=== PATIENT | female | born 1945 | race Caucasian/White ===

== ENCOUNTER 2020-12-10 15:19 | Outpatient (CLI) | payer MEDICARE, BC, SELFPAY ==
[2020-12-10 15:45] LABS: Basophils Percent Auto 0.5 % (0.2-1.2); Eosinophils Absolute Auto 0.2 K/mm3 (0-0.3); Eosinophils Percent Auto 2.5 % (0-4.4); Hematocrit 43.3 % (37.0-47.0); Hemoglobin 14.1 g/dL (12.0-15.0); Immature Granulocyte Absolute 0.03 K/mm3 (0.00-0.031); Immature Granulocyte Percent A 0.3 % (0-0.5); Lymphocytes Absolute Auto 1.81 K/mm3 (0.9-3.2); Lymphocytes Percent Auto 20.4 % (18.3-44.2); Mean Corpuscular HGB Conc 32.6 g/dl (32-36); Mean Corpuscular Hemoglobin 29.8 pg (26-34); Mean Corpuscular Volume 91.5 fl (80-100); Monocytes Absolute Auto 0.6 K/mm3 (0.1-0.6); Monocytes Percent Auto 7.1 % (2.6-8.5); Neutrophils Absolute Auto 6.2 K/mm3 (1.3-6.7); Neutrophils Percent Auto 69.2 % (45.5-73.1); Platelet Count Result 301 k/mm3 (150-375); Red Blood Count 4.73 M/mm3 (4.2-5.4); Red Cell Distribution Width 13.2 % (11.5-14.5); White Blood Count 8.9 K/mm3 (4.5-10.0)
[2020-12-10 16:02] LABS: Alanine Aminotransferase 40 U/L (4-35); Albumin Level 4.4 g/dL (3.5-5.1); Alkaline Phosphatase 72 U/L (38-126); Anion Gap 9 mmol/L (8-16); Aspartate Amino Transferase 32 U/L (14-36); Bilirubin,Total 1.6 mg/dL (0.2-1.3); Blood Urea Nitrogen 21 mg/dL (7-17); Calcium 9.6 mg/dL (8.4-10.2); Carbon Dioxide 30 mmol/L (22-30); Chloride 103 mmol/L (98-107); Cholesterol 149 mg/dL (0-200); Estimated Glomerular Filt Rate > 60; Glucose 107 mg/dL (65-110); HDL Direct 46 mg/dL; Potassium 3.9 mmol/L (3.4-5.0); Sodium 142 mmol/L (137-145); Triglycerides 218 mg/dL (<150)
[2020-12-10 16:14] LABS: LDL Cholesterol Direct 60 mg/dL
[2020-12-10 16:34] LABS: Vitamin D 25 Hydroxy 39.7 ng/mL
== END 2020-12-10 15:20 | disposition home or self-care (01) ==
PROVIDERS: PCP Physician Assistant Medical; Visit Provider Nurse Practitioner Family
DX: E78.5 Hyperlipidemia, unspecified (principal); I10 Essential (primary) hypertension; U07.1 COVID-19; E55.9 Vitamin D deficiency, unspecified
CPT/HCPCS: 36415; 80053; 80061; 82306; 84443; 85025

== ENCOUNTER → 2021-01-01 14:26 | Outpatient (CLI) | payer MEDICARE, BC, SELFPAY ==
--- NOTE | ~2021-01-01 | MMUS_ITS ---
EXAMINATION: MM diagnostic inocencio BI w shaji, US breast RT limited HISTORY: Pain in the right axilla at the site of prior lymph node removal. TECHNIQUE: Craniocaudal, mediolateral, and mediolateral oblique 3-D tomosynthesis images of the breas ts were performed and synthetic 2-D images were generated. Magnification views of the left breast are also obtained. CAD analysis was submitted and interpreted. High resolution limited right breast ultr asound was performed. COMPARISON: 08/01/2016, 07/22/2016, 02/19/2015 BREAST PARENCHYMAL COMPOSITION: The breasts are heterogeneously dense, which may obscure small masses . FINDINGS: MAMMOGRAPHIC FINDINGS: Right breast: There is no evidence of suspicious mass, calcification, or architectural distortion to suggest malignancy. There has been no suspicious interval change. No mammographic correlate is ident ified for the patient's reported right axilla pain. Left breast: There are grouped coarse heterogeneous and lucent centered calcifications in the posteri or third of the upper outer quadrant of the breast at the 1:00 location 17 cm from the nipple. ULTRASOUND: There is no evidence of focal abnormal solid or cystic mass in the vicinity of the patient's reported right axillary pain. Normal-appearing lymph nodes are identified. IMPRESSION: 1. Indeterminate left breast calcifications. Stereotactic biopsy is recommended. 2. No suspicious correlate identified for the patient's right axillary pain. Clinical follow-up is re commended. BI-RADS category 4, suspicious findings. Reviewed, dictated and finalized at location A. HER MACHINE OPERATOR IMPRESSION: 1. Indeterminate left breast calcifications. Stereotactic biopsy is recommended . 2. No suspicious correlate identified for the patient's right axillary pain. Cl inical follow-up is recommended. BI-RADS category 4, suspicious findings.
== END ==
PROVIDERS: PCP Family Medicine; Visit Provider Nurse Practitioner Family
DX: R92.8 Other abnormal and inconclusive findings on diagnostic imaging of breast (principal)
CPT/HCPCS: 76642; 77062; 77066; G0279

== ENCOUNTER 2021-01-01 16:17 | Outpatient (CLI) | payer MEDICARE, BC, SELFPAY ==
[2021-01-01 16:51] LABS: Alanine Aminotransferase 41 U/L (4-35); Albumin Level 4.8 g/dL (3.5-5.1); Alkaline Phosphatase 89 U/L (38-126); Aspartate Amino Transferase 32 U/L (14-36); Bilirubin,Total 1.3 mg/dL (0.2-1.3)
[2021-01-01 19:59] LABS: Hepatitis B Surface Antigen Negative (Negative)
[2021-01-01 20:05] LABS: HAV RESULT Negative (Negative); Hepatitis B Core IgM Result Negative (Negative)
[2021-01-01 20:16] LABS: Hepatitis C Virus Antibody Negative (Negative)
[2021-01-04 14:43] LABS: GGT 36 U/L (3-65)
== END 2021-01-01 16:18 | disposition home or self-care (01) ==
LOC: ANHLAB 16:26
PROVIDERS: PCP Family Medicine; Visit Provider Nurse Practitioner Family
DX: R74.01 Elevation of levels of liver transaminase levels (principal)
CPT/HCPCS: 36415; 80074; 80076; 82977

== ENCOUNTER 2021-03-11 10:39 | Outpatient (CLI) | payer MEDICARE, BC, SELFPAY ==
--- NOTE | ~2021-03-11 | MM_ITS ---
MM stereotactic bx LT, MM post biopsy diagnostic LT, MM stereotactic specimen LT EXAMINATION: MM ster eotactic bx LT, MM post biopsy diagnostic LT, MM stereotactic specimen LT DATE: Carlitos Forrest M.D. INDICATION: Abnormal calcifications in the left breast. Stereotactic core biopsy is requested evalua te for malignancy.] TECHNIQUE AND FINDINGS: The risks and potential benefits of the procedure were discussed with the patient and written informe d consent was obtained. The patient was placed in the prone position clustered at the table with the left breast in the left breast compression, and the area of interest was localized and targeted util izing digital imaging with stereotaxis. After sterile preparation of the skin, 1% lidocaine was utilized for local anesthesia at the skin pun cture site and 1% lidocaine with epinephrine was utilized for deeper local anesthesia/is about the bi opsy site. A 9G DubMeNow vacuum assisted biopsy needle was advanced to the level of the calcification o f interest from a lateral approach utilizing stereotactic guidance and a total of 6 tissue core biops ies were obtained. A specimen radiograph demonstrates that the calcifications of interest are included within the tissue cores. A tissue marker clip was then placed at the biopsy site. The needle was removed and hemosta sis was achieved. The patient tolerated the procedure well and there is no evidence of significant i mmediate complication. The patient was given verbal as well as written postprocedural instructions p rior to discharge from the department. Tissue cores were submitted to surgical pathology for histolo gic analysis. A 2-view left unilateral digital mammogram was obtained post procedure and this demonstrates that the tissue marker clip is in expected position.] IMPRESSION: 1. Successful stereotactic biopsy of calcifications in the upper outer quadrant of the left breast, followed by tissue marker clip placement. Please refer to pathology report for histologic analysis. Reviewed, dictated and finalized at location A. CHEMISTRY ANALYST IMPRESSION: 1. Successful stereotactic biopsy of calcifications in the upper outer quadran t of the left breast, followed by tissue marker clip placement. Please refer t o pathology report for histologic analysis. IMPRESSION: 1. Successful stereotactic biopsy of calcifications in the upper outer quadran t of the left breast, followed by tissue marker clip placement. Please refer t o pathology report for histologic analysis.
== END 2021-03-11 10:40 | disposition home or self-care (01) ==
PROVIDERS: PCP Family Medicine; Visit Provider Nurse Practitioner Family
DX: R92.1 Mammographic calcification found on diagnostic imaging of breast (principal)
CPT/HCPCS: 19081; 77065; 88305; A4648

== ENCOUNTER → 2021-04-09 13:24 | Outpatient (CLI) | payer MEDICARE, BC, SELFPAY ==
--- NOTE | ~2021-04-09 | DEXA_ITS ---
Bone Density Report Name: DHIRAJ HAYWOOD Age: 75 Sex: Female Ethnicity: White Date of : 1945 Indication: postmenopausal; screening for osteoporosis; height loss; hysterectomy; Referring Provider: Kia León Study: Bone densitometry was performed. Exam Date: April 09, 2021 Accession number: [id number] Bone Density: Region BMD T-score Z-score Classification Femoral Neck (Left) 0.757 -0.8 1.2 Normal Total Hip (Left) 0.974 0.3 2.0 Normal Femoral Neck (Right) 0.788 -0.6 1.5 Normal Total Hip (Right) 0.999 0.5 2.2 Normal Total Hip Mean 0.987 0.4 2.1 Normal World Health Organization criteria for BMD impression classify patients as: Normal (T-score at or above -1.0), Osteopenia (T-score between -1.0 and -2.5), or Osteoporosis (T-score at or below -2.5). 10-year Fracture Risk: FRAX not reported because: All T-scores for Spine Total, Hip Total, Femoral Neck at or above -1.0 Previous Exams: Region Exam Age BMD T-score BMD Change BMD Change Date g/cm2 vs Baseline vs Previous Total Hip(Left) 04/09/2021 75 0.974 0.3 -0.031* -0.062* 09/21/2013 68 1.036 0.8 0.032* 0.032* 08/05/2011 66 1.004 0.5 Total Hip(Right) 04/09/2021 75 0.999 0.5 -0.023 -0.050* 09/21/2013 68 1.048 0.9 0.026 0.026 08/05/2011 66 1.022 0.7 *Denotes significance at 95% confidence level, LSC for Total Hip = 0.027 g/cm2 Clinical Information Provided by Patient: Has the following medical conditions: Hysterectomy, endometrial cancer age 42 Patient maximum height was 62 Menopause Age: 42 No regular weight bearing exercise Does not regularly consume dairy products Drinks caffeinated beverages Onset of menses at age 14 Number of children 0 Impression: The patient has normal bone mass. The BMD for the Total Hip(Left) decreased, changing by -0.062 since the last DXA exam. The BMD for the Total Hip(Right) decreased, changing by -0.050 since the last DXA exam. Discussion: BONE DENSITY IS ABOVE THE MINIMUM DESIRABLE LEVEL AT ALL SKELETAL SITES TESTED. This patient?s bone mineral density is above the minimum desirable level (T-score -1.0 or better) at all sites measured. The patient should follow a healthful lifestyle (good nutrition with adequate calcium and vitamin D, and appropriate weight-bearing exercise). Follow-Up: Consider repeating this study in 3 to 4 years to reassess this patient's status, or sooner if there is some new cl
== END ==
PROVIDERS: PCP Family Medicine; Visit Provider Nurse Practitioner Family
DX: Z78.0 Asymptomatic menopausal state (principal)
CPT/HCPCS: 77080

== ENCOUNTER → 2021-07-25 14:24 | Outpatient (CLI) | payer MEDICARE, BC, SELFPAY ==
--- NOTE | ~2021-07-25 | XR_ITS ---
EXAMINATION: XR chest 2V 07/25/2021 14:52 INDICATION: Cough PROCEDURE: 2 view chest COMPARISON: No prior studies for comparison. FINDINGS: The lungs are clear. The cardiomediastinal silhouette is within normal limits. There are no pleural effusions. There is no pneumothorax suspected. Status post median sternotomy for CABG. IMPRESSION: 1: NO ACUTE CARDIOPULMONARY DISEASE. Reviewed, dictated and finalized at location A.
== END ==
PROVIDERS: PCP Nurse Practitioner Family; Visit Provider Nurse Practitioner Family
DX: R05.9 Cough, unspecified (principal)
CPT/HCPCS: 71046

== ENCOUNTER → 2021-08-20 13:55 | Outpatient (CLI) | payer MEDICARE, BC, SELFPAY ==
--- NOTE | ~2021-08-20 | XR_ITS ---
EXAMINATION: XR chest 2V 08/20/2021 14:10 INDICATION: Cough PROCEDURE: 2 view chest COMPARISON: 07/25/2021 FINDINGS: The lungs are clear. The cardiomediastinal silhouette is within normal limits. There are no pleural effusions. There is no pneumothorax suspected. Status post median sternotomy for CABG. S urgical clips are present in the right axilla. IMPRESSION: 1: NO ACUTE CARDIOPULMONARY DISEASE. Reviewed, dictated and finalized at location A.
== END ==
PROVIDERS: PCP Family Medicine; Visit Provider Physician Assistant Medical
DX: R05.9 Cough, unspecified (principal)
CPT/HCPCS: 71046

== ENCOUNTER → 2021-10-04 14:00 | Outpatient (CLI) | payer MEDICARE, BC, SELFPAY ==
--- NOTE | ~2021-10-04 | MM_ITS ---
EXAMINATION: MM diagnostic inocencio BI w shaji HISTORY: Recent benign biopsy of calcifications TECHNIQUE: Additional 3-D tomosynthesis images of the breasts were performed and synthetic 2-D images were generated. CAD analysis was submitted and interpreted. COMPARISON: Comparison to multiple prior studies sequentially, with oldest reviewed study dated 02/19. BREAST PARENCHYMAL COMPOSITION: BREAST PARENCHYMAL COMPOSITION: The breasts are heterogeneously dense, which may obscure small masses . FINDINGS: The breasts are stable. No suspicious masses, calcifications or architectural distortion ar e identified in either breast to suggest malignancy. There are benign-appearing bilateral breast calc ifications. Calcifications in the upper outer quadrant of the left breast posteriorly are stable, jesu e of which appear to layer. IMPRESSION: 1. Stable bilateral mammogram. No evidence for malignancy. 2. Routine yearly screening mammogram and regular clinical breast examination are recommended. BI-RADS Category 2: Benign finding(s). Reviewed, dictated and finalized at location A. IMPRESSION: 1. Stable bilateral mammogram. No evidence for malignancy. 2. Routine yearly screening mammogram and regular clinical breast examination a re recommended. BI-RADS Category 2: Benign finding(s).
== END ==
PROVIDERS: PCP Family Medicine; Visit Provider Nurse Practitioner Family
DX: R92.8 Other abnormal and inconclusive findings on diagnostic imaging of breast (principal)
CPT/HCPCS: 77062; 77066; G0279

== ENCOUNTER → 2022-01-29 16:20 | Outpatient (CLI) | payer MEDICARE, BC, SELFPAY ==
--- NOTE | ~2022-01-29 | XR_ITS ---
EXAMINATION: XR finger 3rd RT min 2V INDICATION: Osteoarthritis and pain, superficial wound of the finger TECHNIQUE: Four views of the right third finger are obtained. COMPARISON: None available FINDINGS: Bone alignment is normal. There is no fracture. 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 There is soft tissue swelling at the medial and dorsal of the finger cente red at the distal interphalangeal joint. IMPRESSION: 1. Soft tissue swelling at the medial and dorsal aspect of the distal third finger central and to the interphalangeal joint without underlying acute osseous abnormality. Reviewed, dictated and finalized at location F. TH INSPECTOR FOOD IMPRESSION: 1. Soft tissue swelling at the medial and dorsal aspect of the distal third fin alfredo central and to the interphalangeal joint without underlying acute osseous a bnormality.
== END ==
PROVIDERS: PCP Family Medicine; Visit Provider Plastic Surgery
DX: M19.041 Primary osteoarthritis, right hand (principal); M79.89 Other specified soft tissue disorders
CPT/HCPCS: 73140

== ENCOUNTER 2022-03-03 14:24 | Outpatient (CLI) | payer MEDICARE, BC, SELFPAY ==
--- NOTE | 2022-03-03 14:40 | ECG_ITS ---
Measurements Intervals [place] Rate: 58 P: 34 [place]: 186 QRS: -23 QRSD: 89 T: 73 QT: 389 QTc: 384 Interpretive Statements SINUS BRADYCARDIA LOW QRS VOLTAGE IN PRECORDIAL LEADS ANTERIOR INFARCT, AGE INDETERMINATE BORDERLINE T WAVE ABNORMALITY- ANT/HIGH LAT LEADS BASELINE ARTIFACT- I, II, III, AVR, AVL, AVF, V1-V6 ABNORMAL ECG NO PREVIOUS ECG AVAILABLE FOR COMPARISON Electronically Signed On 03-03-2022 15:21:02 ADMINISTRATION DEAN by Avinash Alas D.O.
== END 2022-03-03 14:25 | disposition home or self-care (01) ==
PROVIDERS: PCP Family Medicine; Visit Provider Plastic Surgery
DX: I10 Essential (primary) hypertension (principal); Z01.818 Encounter for other preprocedural examination; R94.31 Abnormal electrocardiogram [ECG] [EKG]
CPT/HCPCS: 93005

== ENCOUNTER 2022-03-06 01:32 | Day surgery (SDC) | payer MEDICARE, BC, SELFPAY ==
--- NOTE | 2022-02-27 13:36 | PC.NURSE ---
Report to the Outpatient Waiting Room, entrance under the green pavilion located off [facility], at time 0630 on date ___03/06/22____. Planned Procedure Time: __0900 . NUC. MED AT 0730 Time changes happen often and if your time is changed the preop area will call you the afternoon before. - You and your visitor will be asked to self-screen and do not enter if you have any COVID symptoms. - Only one visitor is requested with a max of two and NO children visitors are allowed at this time. - The patient visitor may be requested to leave or wait in car when not with patient due to distancing restrictions. - A mask is optional within the hospital. Patients may have clear liquids (water, carbonated beverages, clear teas, apple juice) until 3 hours prior to surgery with a maximum of 20 ounces. - No food from midnight until time of surgery - Infants may have breast milk until 4 hours before surgery, formula 6 hours prior to surgery. - Children will be allowed to drink immediately following surgery. If applicable, please bring a bottle or sippy cup to assist with drinking. Juice, water, soda, and popsicles are readily available. For infants on formula, please bring formula the day of surgery. Pacifiers are allowed. Take the following medications with a SIP of water the morning of surgery: ____AMLODIPINE AND METOPROLOL Medications to discontinue per physician ___MAY CONTINUE ASPIRIN PER DR YUAN- DON'T TAKE MORNING OF SURGERY Date to take last dose Please no make-up, nail vincentian, hairspray, perfume, deodorant, or body powder the day of surgery. No jewelry (including any body piercings) or valuables the day of surgery, leave them at home. Please take a shower or bath the night before, or the morning of, surgery with an antibacterial soap. Wear comfortable, loose fitting clothing. Children are encouraged to wear pajamas. - Jewelry must be removed prior to entering the operating room. Rings and piercings that are not removed may be cut off. - The hospital will not accept responsibility for valuables. - Please leave all valuables, including medications, at home the day of surgery. If you are going home after surgery, a licensed commercial driver's license driver must drive you home. - NO public transportation without another adult if you receive anesthesia. - We recommend that an adult stay with you for 24 hours following discharge. - We also recommend that you do not drive, make important decision, drink alcoholic beverages, or take any drugs that were not prescribed by your health care provider for at least 24 hours after your discharge time. Follow any additional instructions given to you from your surgeon. If you or anyone in your household have experienced Covid symptoms in the past week, please notify your surgeon or the nurse liaison at the phone number below for possible testing. Telephone instructions given to ___PATIENT and asked if any additional questions and then verbalized understanding. Patient advised to call surgeon office or pre surgery nurse liaison [phone] if any additional questions.
[2022-02-27 13:44] VITALS: BMI 32.9
--- NOTE | 2022-03-05 12:32 | WPDANESEPPF ---
Anes - Initial Pre Proc Eval Procedure: Operation Date: 03/06/22 09:00 Proposed Procedures p Right Middle Finger Distal Amputation for Melanoma and [place] Lymph Node Biopsy - Dale Irving MD Date/Time: 03/05/22 12:32 Surgeon: Dale Irving MD Pre Op Diagnosis: Melanoma of Right Middle Distal Phalanx Patient Data Age: 76 Gender: F Height: 1.57 m Weight: 81.65 kg Allergies Allergy/AdvReac Type Severity Reaction Status Date / Time Sulfa (Sulfonamide AdvReac Unknown Rash Verified 03/06/22 07:42 Antibiotics) sulfanilamide AdvReac Unknown Rash Verified 03/06/22 07:42 Home Medications Medication Instructions Recorded Confirmed Type amlodipine 5 mg tablet 5 mg PO DAILY 01/18/19 03/06/22 History atorvastatin 40 mg tablet (Lipitor) 40 mg PO DAILY 01/18/19 03/06/22 History metoprolol tartrate 25 mg tablet 12.5 mg PO BID 01/18/19 03/06/22 History aspirin 81 mg tablet,delayed 81 mg PO DAILY 11/28/20 03/06/22 History release (Adult Low Dose Aspirin) losartan 50 mg tablet 50 mg PO DAILY 11/28/20 03/06/22 History nitroglycerin 0.4 mg sublingual 0.4 mg sublingual Q5M PRN Chest 11/28/20 03/06/22 History tablet Pain mupirocin 2 % topical ointment 1 applic topical BID #22 grams 07/25/21 03/06/22 Rx Patient hx anesthesia problems: none Family hx anesthesia problems: none Results Review: All pre-operative results and documents have been reviewed as part of the pre-operative evaluation. [facility] Past Medical History Medical History (Updated 03/05/22 @ 12:36 by Kenneth Lockwood DO) Abnormal mammogram of left breast Acute pain of left hip Acute UTI BMI 33.0-33.9,adult COVID-19 Dietary counseling and surveillance (07/30/17) Frequent urination Hyperlipidemia Hypertension Injury of facial nerve, left side, initial encounter Post-menopausal Post-nasal drainage Preoperative clearance Serous otitis media White coat syndrome without diagnosis of hypertension Surgical History Surgical History (Updated 03/05/22 @ 12:36 by Kenneth Lockwood DO) H/O breast biopsy History of cholecystectomy History of hysterectomy Hx of CABG x2, 2009 Family History Family History Father Hypertension Family history of throat cancer Mother Family history of cardiac disorder Family history of malignant neoplasm of breast in first degree relative Breast cancer Cerebrovascular accident Sibling Leukemia Sibling Breast cancer Social History Social History Smoking status: Never smoker Second hand tobacco smoke exposure: Yes Alcohol intake: current Substance use: never Substance use type: does not use Living arrangements: with family Occupation/Education: retired Additional occupation/education comments: [employer] Gender identity (if verbalized by the patient): Female Spiritual care concerns: No Anes - Eval Final PreProcedure Day of Procedure 03/05/22 12:32 Patient weight: obese Heart: regular rate and rhythm Lungs: clear to auscultation Airway: Mallampati scale class II Neurological: alert and oriented Last oral intake: >/= 8 hours ASA classification: III Emergent: no Anesthetic plan: proceed Anesthesia type and monitoring: general LMA and standard monitoring Results Review: All pre-operative results and documents have been reviewed as part of the pre-operative evaluation. Informed Consent: The patient's anesthetic plan and its attendant risks and benefits were discussed with the patient/family/POA. Questions were solicited and answers provided to the satisfaction of the patient/family/POA.
[2022-03-06] VITALS (8 sets, daily range): BP systolic 128–154; BP diastolic 65–78; PULSE 53–90; RESP 12–20; TEMP 36.1–37.2; O2SAT 92–98
--- NOTE | ~2022-03-06 | NM_ITS ---
EXAMINATION: NM sentinel node w imaging DATE: 03/06/2022 09:10 INDICATION: Right hand third digit melanoma. TECHNIQUE: 0.5047 mCi Tc-99m filtered sulfur colloid was injected in 3 aliquots around the skin lesio n of right hand third digit. Scintigrams were obtained. FINDINGS: There is activity in two right axillary lymph nodes. IMPRESSION: 1. Activity in two right axillary lymph nodes. Reviewed, dictated and finalized at location A. IGERATING OILER
--- NOTE | 2022-03-06 07:18 | WPDHPUPDATE1 ---
History and Physical Update Update Date/Time: 03/06/22 07:18 History and Physical has been reviewed, including an updated exam of the patient. There are NO changes in the patient's condition. Risks, benefits, and alternatives have been discussed and questions answered. Patient agrees to proceed with procedure.
--- NOTE | 2022-03-06 08:14 | SUR.PREOP ---
PT RETURNED FROM NUCLEAR MEDICINE
[2022-03-06] MEDS: LACTATED RINGERS 1,000 ML 30 ML IV CONT ×2 (08:15→11:13)
[2022-03-06] MEDS: ceFAZolin 2 GM/D5W 50 ML 2 GM/50 ML BAG IVPB (08:53)
[2022-03-06] MEDS: LIDO 2%/EPINEPHRINE 1:100,000 50 ML VIAL 20 ML INFILTRATE (10:54)
--- NOTE | 2022-03-06 12:09 | W.PM.PROC2 ---
Procedure Note - Detailed Date of Procedure 03/06/22 Pre-op Diagnosis Melanoma of Right Middle Distal Phalanx Post-op Diagnosis Same Procedure Performed Amputation of the right middle finger through the middle phalanx with local flap closure. Right axillary sentinel lymph node biopsy Surgeon Dale Irving MD Escapement Maker Miriam S Anesthesia General Indications Malignant melanoma of the distal phalanx of the right middle finger Findings 3 sentinel lymph nodes were identified in the right axilla and sent to pathology Description of Procedure The patient was greeted in the holding area. We discussed briefly her procedure. She was sent to nuclear medicine where she underwent identification of right axillary sentinel lymph nodes. She returned to the operating room and was placed on the operating table. She was given general anesthesia. The right upper extremity and chest were prepped and draped usual fashion. A quick scan with the gamma probe indicated the presence of identifiable lymph nodes. The surgery proceeded with amputation of the middle finger through the middle phalanx. The digit was anesthetized with some 1% lidocaine with epinephrine as a digital block. With careful examination of this digit we outlined what appeared to be the tumor site which underlies the 1 cm ulceration. This lies adjacent to the proximal and ulnar nail fold. The tumor is estimated at 18 mm and it is round. It does not seem to be subungual. There is some pigmentation at the very tip of the finger several mm palmar to the hyponychium. This area had not been biopsied. A similar dark area of the dorsal nail fold had been biopsied and was found to not contain melanoma. Markings were made on the skin to provided 2 cm margin proximally from the most proximal aspect of the tumor. A curving line to produce a radially based flap was marked that approached the tumor as close as 1.5 cm laterally. The level of osteotomy was expected to be in the middle 3rd of the middle phalanx.. A green tourniquet was passed over the distal phalanx and rolled to the base of the finger. The incision was made as marked with the intention of preserving the radially based flap. The excision was done such that the flexor digitorum superficialis, at least on the flap base side, would be preserved. The the shaft of the middle phalanx was divided with a bone cutter. The cut end was smoothed with a rongeur. The flap was robust and was tailored to fit and closed with interrupted 5 0 nylon. The tourniquet was removed. The finger demonstrated adequate perfusion. Small bandage was applied. Attention was turned to the right axilla for the incision was made in line with the previous scar from a lymph node sampling for cat scratch fever many years ago. Sharp and blunt dissection revealed the sites of 3 lymph nodes that demonstrated great deal of radio activity. [place] node 1 registered a count of 329. [place] node number 2 register [id number]. [place] node 3 Registered 356. The background noise was less than 30. The last of these lymph nose appeared to be level 2. No dissection was carried above the axillary vessels. Couple of vascular clips were placed during removal of that lymph node. There was no bleeding following removal of these lymph nodes. No drains were placed. The skin was approximated with glue. The patient was extubated and transported to recovery room stable condition.. Estimated Blood Loss -30.0 Tourniquet Time 16 Drains No Packing No Pathology Yes Complications No immediate complications Condition Stable Disposition PACU
[2022-03-06] MEDS: oxyCODONE HCL (*CRX) 5 MG TAB IR PO (12:53)
== END 2022-03-06 13:01 | disposition home or self-care (01) ==
PROVIDERS: PCP Family Medicine; Visit Provider Plastic Surgery
PROC: (CPT 26951; principal; 2022-03-06 09:00)
DX: C43.61 Malignant melanoma of right upper limb, including shoulder (principal); C77.3 Secondary and unspecified malignant neoplasm of axilla and upper limb lymph nodes; I10 Essential (primary) hypertension; E78.5 Hyperlipidemia, unspecified; Z79.82 Long term (current) use of aspirin; Z95.1 Presence of aortocoronary bypass graft; E66.9 Obesity, unspecified; Z68.32 Body mass index [BMI] 32.0-32.9, adult
CPT/HCPCS: 26951; 38525; 78195; 88305; 88307; 88342; A9270; A9520; C1713; J0690; J1100; J2405; J2704; J3010; J7120

== ENCOUNTER 2022-04-09 13:47 | Outpatient (CLI) | payer MEDICARE, BC, SELFPAY ==
[2022-04-09 14:53] LABS: Prothrombin Time 13.1 Seconds (11.1-14.7)
[2022-04-09 14:54] LABS: Partial Thromboplastin Time 28.3 SECONDS (22.3-36.8)
[2022-04-09 20:06] LABS: Basophils Percent Auto 0.4 % (0.2-1.2); Eosinophils Absolute Auto 0.2 K/mm3 (0-0.3); Hematocrit 45.7 % (37.0-47.0); Hemoglobin 14.4 g/dL (12.0-15.0); Immature Granulocyte Absolute 0.02 K/mm3 (0.00-0.031); Immature Granulocyte Percent A 0.2 % (0-0.5); Lymphocytes Absolute Auto 1.83 K/mm3 (0.9-3.2); Lymphocytes Percent Auto 19.5 % (18.3-44.2); Mean Corpuscular HGB Conc 31.5 g/dl (32-36); Mean Corpuscular Hemoglobin 28.8 pg (26-34); Mean Corpuscular Volume 91.4 fl (80-100); Mean Platelet Volume 11.5 fl (7.4-10.4); Monocytes Absolute Auto 0.7 K/mm3 (0.1-0.6); Monocytes Percent Auto 7.3 % (2.6-8.5); Neutrophils Absolute Auto 6.6 K/mm3 (1.3-6.7); Neutrophils Percent Auto 70.6 % (45.5-73.1); Platelet Count Result 292 k/mm3 (150-375); Red Cell Distribution Width 13.3 % (11.5-14.5); White Blood Count 9.4 K/mm3 (4.5-10.0)
== END 2022-04-09 13:48 | disposition home or self-care (01) ==
LOC: ANHGOSHLAB 13:49
PROVIDERS: Visit Provider Surgery
DX: C43.9 Malignant melanoma of skin, unspecified (principal); Z01.818 Encounter for other preprocedural examination
CPT/HCPCS: 36415; 85025; 85610; 85730

== ENCOUNTER 2022-04-10 00:42 | Day surgery (SDC) | payer MEDICARE, BC, SELFPAY ==
[2022-04-08 09:37] VITALS: BMI 32.9
--- NOTE | 2022-04-08 09:42 | PC.NURSE ---
PRE-OP INSTRUCTIONS, PLEASE READ CAREFULLY Report to the Outpatient Waiting Room, entrance under the green pavilion located off [facility], at time _0600_ on date _04/10/22_. Planned Procedure Time: _0730_. Time changes happen often and if your time is changed the preop area will call you the afternoon before. - You and your visitor will be asked to self-screen and do not enter if you have any COVID symptoms. - Only one visitor is requested with a max of two and NO children visitors are allowed at this time. - The patient visitor may be requested to leave or wait in car when not with patient due to distancing restrictions. - A mask is optional within the hospital at this time. Patients may have clear liquids (water, carbonated beverages, clear teas, apple juice) until 3 hours prior to surgery (0430 AM) with a maximum of 20 ounces. - No food from midnight until time of surgery Take the following medications with a SIP of water the morning of surgery: _AMLODIPINE, METOPROLOL, & NITROGLYCERIN IF NEEDED_ DO NOT STOP ANY OF YOUR OTHER PRESCRIPTION MEDICATIONS PRIOR TO SURGERY ?EXCEPT THE FOLLOWING Medications to discontinue per physician ___N/A , Date to take last dose Please no make-up, nail yoruba, hairspray, perfume, deodorant, or body powder the day of surgery. No jewelry (including any body piercings) or valuables the day of surgery, leave them at home. Please take a shower or bath the night before, or the morning of, surgery with an antibacterial soap. Wear comfortable, loose fitting clothing. - Jewelry must be removed prior to entering the operating room. Rings and piercings that are not removed may be cut off. - The hospital will not accept responsibility for valuables. - Please leave all valuables, including medications, at home the day of surgery. If you are going home after surgery, a licensed powder truck driver must drive you home. - NO public transportation without another adult if you receive anesthesia. - We recommend that an adult stay with you for 24 hours following discharge. - We also recommend that you do not drive, make important decision, drink alcoholic beverages, or take any drugs that were not prescribed by your health care provider for at least 24 hours after your discharge time. Follow any additional instructions given to you from your surgeon. If you or anyone in your household have experienced Covid symptoms in the past week, please notify your surgeon or the nurse liaison at the phone number below for possible testing. Telephone instructions given to _PATIENT_and asked if any additional questions and then verbalized understanding. Patient advised to call surgeon office or pre surgery nurse liaison [phone] if any additional questions.
--- NOTE | ~2022-04-10 | XR_ITS ---
XR chest port-a-cath/central, XR fl guide central line place 04/10/2022 08:58 (accession [id number]), 04/10/2022 08:44 (accession [id number]) Indication: Portacatheter insertion Procedure: AP portable chest and single fluoroscopic view of the chest. 56 seconds of fluoroscopy. Comparison: 08/20/2021 Findings: Portacatheter tip in the SVC. Status post median sternotomy for CABG. Heart size normal. No focal air space disease, pulmonary edema, pleural effusion or suspected pneumothorax. There are surg ical clips in the right axilla. No acute osseous abnormality. Impression: 1: No acute cardiopulmonary disease. Reviewed, dictated and finalized at location L. [employer] Impression: 1: No acute cardiopulmonary disease. Impression: 1: No acute cardiopulmonary disease.
[2022-04-10 06:15] VITALS: BP 174/74; PULSE 48; RESP 18; TEMP 36.2; O2SAT 99; BMI 32.9
[2022-04-10] MEDS: LACTATED RINGERS 1,000 ML 30 ML IV CONT (06:50)
[2022-04-10] MEDS: KETOROLAC 15 MG/ML VIAL (*BKC) IV PUSH (06:58)
[2022-04-10 07:03] LABS: Basophils Percent Auto 0.3 % (0.2-1.2); Eosinophils Absolute Auto 0.2 K/mm3 (0-0.3); Eosinophils Percent Auto 2.2 % (0-4.4); Hematocrit 44.6 % (37.0-47.0); Hemoglobin 14.3 g/dL (12.0-15.0); Immature Granulocyte Absolute 0.03 K/mm3 (0.00-0.031); Immature Granulocyte Percent A 0.3 % (0-0.5); Lymphocytes Absolute Auto 2.15 K/mm3 (0.9-3.2); Mean Corpuscular HGB Conc 32.1 g/dl (32-36); Mean Corpuscular Hemoglobin 29.2 pg (26-34); Mean Platelet Volume 10.4 fl (7.4-10.4); Monocytes Absolute Auto 0.6 K/mm3 (0.1-0.6); Monocytes Percent Auto 5.8 % (2.6-8.5); Neutrophils Absolute Auto 6.8 K/mm3 (1.3-6.7); Neutrophils Percent Auto 69.4 % (45.5-73.1); Platelet Count Result 265 k/mm3 (150-375); Red Cell Distribution Width 13.2 % (11.5-14.5); White Blood Count 9.8 K/mm3 (4.5-10.0)
--- NOTE | 2022-04-10 07:13 | WPDANESEPPF ---
Anes - Initial Pre Proc Eval Procedure: Operation Date: 04/10/22 07:30 Proposed Procedures p Insertion Sonny Cath - Meli Carpenter MD Date/Time: 04/10/22 07:13 Surgeon: Meli Carpenter MD Pre Op Diagnosis: malig melanoma right upper extremity Patient Data Age: 76 Gender: F Height: 1.57 m Weight: 81.65 kg Allergies Allergy/AdvReac Type Severity Reaction Status Date / Time Sulfa (Sulfonamide AdvReac Unknown Rash Verified 04/10/22 06:44 Antibiotics) sulfanilamide AdvReac Unknown Rash Verified 04/10/22 06:44 Home Medications Medication Instructions Recorded Confirmed Type amlodipine 5 mg tablet 5 mg PO DAILY 01/18/19 04/10/22 History atorvastatin 40 mg tablet (Lipitor) 40 mg PO DAILY 01/18/19 04/08/22 History metoprolol tartrate 25 mg tablet 12.5 mg PO BID 01/18/19 04/10/22 History aspirin 81 mg tablet,delayed 81 mg PO DAILY 11/28/20 04/08/22 History release (Adult Low Dose Aspirin) losartan 50 mg tablet 50 mg PO DAILY 11/28/20 04/10/22 History nitroglycerin 0.4 mg sublingual 0.4 mg sublingual Q5M PRN Chest 11/28/20 04/08/22 History tablet Pain mupirocin 2 % topical ointment 1 applic topical BID #22 grams 07/25/21 04/08/22 Rx Laboratory Tests 04/10/22 06:53 WBC Pending RBC Pending Hgb Pending Hct Pending MCV Pending MCH Pending MCHC Pending RDW Pending Plt Count Pending MPV Pending Immature Gran % (Auto) Pending Neut % (Auto) Pending Lymph % (Auto) Pending Dougherty % (Auto) Pending Eos % (Auto) Pending Baso % (Auto) Pending Lymph # (Auto) Pending Dougherty # (Auto) Pending Eos # (Auto) Pending Baso # (Auto) Pending Abs Immat Gran (auto) Pending Absolute Neuts (auto) Pending Absolute Nucleated RBC Pending Nucleated RBC % Pending Patient hx anesthesia problems: none Family hx anesthesia problems: none Results Review: All pre-operative results and documents have been reviewed as part of the pre-operative evaluation. [facility] Past Medical History Medical History (Updated 04/08/22 @ 15:57 by Brian Herr MD) Abnormal mammogram of left breast Acute pain of left hip Acute UTI BMI 33.0-33.9,adult COVID-19 Dietary counseling and surveillance (07/30/17) Frequent urination Hyperlipidemia Hypertension Injury of facial nerve, left side, initial encounter Post-menopausal Post-nasal drainage Preoperative clearance Serous otitis media White coat syndrome without diagnosis of hypertension Surgical History Surgical History (Updated 03/05/22 @ 12:36 by Kenneth Lockwood DO) H/O breast biopsy History of cholecystectomy History of hysterectomy Hx of CABG x2, 2009 Family History Family History Father Hypertension Family history of throat cancer Mother Family history of cardiac disorder Family history of malignant neoplasm of breast in first degree relative Breast cancer Cerebrovascular accident Sibling Leukemia Sibling Breast cancer Social History Social History Smoking status: Never smoker Second hand tobacco smoke exposure: No Alcohol intake: current Substance use: never Substance use type: does not use Living arrangements: with family Occupation/Education: retired Additional occupation/education comments: [employer] Gender identity (if verbalized by the patient): Female Spiritual care concerns: No Anes - Eval Final PreProcedure Day of Procedure 04/10/22 07:13 Patient weight: normal Heart: regular rate and rhythm Lungs: clear to auscultation Airway: Mallampati scale class II Neurological: alert and oriented Last oral intake: >/= 8 hours ASA classification: III Emergent: no Anesthetic plan: proceed Anesthesia type and mo
--- NOTE | 2022-04-10 07:17 | PM.IMHP ---
H&P: HPI History of Present Illness Date/Time: 04/10/22 07:17 Chief Complaint: melanoma Narrative: Pt is a 76 y/o F presenting c metastatic melanoma. Pt is s/p R digit amputation approx 1 mo ago. Pt c positive SLN. Pt is going to undergo adjuvant tx. Pt denies previous central venous catheterization. Review of Systems Review of Systems: All systems reviewed & are unremarkable except as noted in HPI and below PMFSH Past Medical History Medical History Abnormal mammogram of left breast Acute pain of left hip Acute UTI BMI 33.0-33.9,adult COVID-19 Dietary counseling and surveillance (07/30/17) Frequent urination Hyperlipidemia Hypertension Injury of facial nerve, left side, initial encounter Post-menopausal Post-nasal drainage Preoperative clearance Serous otitis media White coat syndrome without diagnosis of hypertension Surgical History Surgical History H/O breast biopsy History of cholecystectomy History of hysterectomy Hx of CABG x2, 2009 Family History Family History Father Hypertension Family history of throat cancer Mother Family history of cardiac disorder Family history of malignant neoplasm of breast in first degree relative Breast cancer Cerebrovascular accident Sibling Leukemia Sibling Breast cancer Social History Social History Smoking status: Never smoker Second hand tobacco smoke exposure: No Alcohol intake: current Substance use: never Substance use type: does not use Living arrangements: with family Occupation/Education: retired Additional occupation/education comments: [employer] Gender identity (if verbalized by the patient): Female Spiritual care concerns: No Meds Home Medications and Allergies Home Medications Medication Instructions Recorded Confirmed Type amlodipine 5 mg tablet 5 mg PO DAILY 01/18/19 04/10/22 History atorvastatin 40 mg tablet (Lipitor) 40 mg PO DAILY 01/18/19 04/08/22 History metoprolol tartrate 25 mg tablet 12.5 mg PO BID 01/18/19 04/10/22 History aspirin 81 mg tablet,delayed 81 mg PO DAILY 11/28/20 04/08/22 History release (Adult Low Dose Aspirin) losartan 50 mg tablet 50 mg PO DAILY 11/28/20 04/10/22 History nitroglycerin 0.4 mg sublingual 0.4 mg sublingual Q5M PRN Chest 11/28/20 04/08/22 History tablet Pain mupirocin 2 % topical ointment 1 applic topical BID #22 grams 07/25/21 04/08/22 Rx Allergies Allergy/AdvReac Type Severity Reaction Status Date / Time Sulfa (Sulfonamide AdvReac Unknown Rash Verified 04/10/22 06:44 Antibiotics) sulfanilamide AdvReac Unknown Rash Verified 04/10/22 06:44 Exam Const: General: cooperative, comfortable and no acute distress Neck: Neck: normal visual inspection, full ROM and no lymphadenopathy Chest: Chest palpation & inspection: normal inspection of the chest Resp: Auscultation: clear to auscultation bilaterally Cardio: Rate: regular rate Rhythm: regular rhythm GI: Inspection: normal to inspection H&P: Results Labs Labs: Short CBC 04/10/22 Range/Units 06:53 WBC 9.8 (4.5-10.0) K/mm3 Hgb 14.3 (12.0-15.0) g/dL Hct 44.6 (37.0-47.0) % Plt Count 265 (150-375) k/mm3 Assessment and Plan Assessment and plan (1) Melanoma: Code(s): C43.9 - Malignant melanoma of skin, unspecified Status: Acute Assessment and Plan: will place VAD for access to facilitate adjuvant tx
--- NOTE | 2022-04-10 07:25 | WPDHPUPDATE1 ---
History and Physical Update Update Date/Time: 04/10/22 07:25 History and Physical has been reviewed, including an updated exam of the patient. There are NO changes in the patient's condition. Risks, benefits, and alternatives have been discussed and questions answered. Patient agrees to proceed with procedure.
[2022-04-10] MEDS: ceFAZolin 2 GM/D5W 50 ML 2 GM/50 ML BAG IVPB (07:30)
[2022-04-10] MEDS: BUPIVACAINE/EPINEPHRINE 0.5% 50 ML VIAL INFILTRATE (07:45)
--- NOTE | 2022-04-10 07:54 | SUR.OPER ---
ULTRASOUND USED NO PICTURE PER SURGEON.
--- NOTE | 2022-04-10 08:24 | SUR.OPER ---
SMART PORT CT EXP 2025-02-08 LOT [id number]
--- NOTE | 2022-04-10 08:36 | W.PM.PROC2 ---
Procedure Note - Detailed Date of Procedure 04/10/22 Pre-op Diagnosis malig melanoma right upper extremity Post-op Diagnosis Same Procedure Performed Placement of left subclavian venous access device Surgeon Meli Carpenter MD Anesthesia MAC and Local Indications 76-year-old female with right upper extremity malignant melanoma requiring adjuvant therapy Findings first stick L SCV, initially accessed LIJ but could not get wire to pass Description of Procedure Patient was brought into the operating room and placed in the supine position. After adequate induction of mac anesthesia, the patient was prepped and draped in normal sterile fashion. Time-out was then done to verify the patient's identity, as well as the procedure being performed. Using the ultrasound, I was able to gain access into the left internal jugular vein. Once accessed, I attempted to place the guidewire. There was noted to be some resistance, and fluoroscopy did confirm that the wire was in the IJ. Patient did have some sternal wires and it was unknown whether not the compression from the wires was causing difficulty passing the wire. Given this, the decision was made to attempt subclavian access. I began by making a small incision in the left chest, I then gained access into the left subclavian vein with an 18 gauge needle. I then placed the guidewire into the vein and confirmed placement via fluoroscopic guidance. I then locally anesthetized the area in the left chest. I then enlarged the incision around the guidewire including making a subcutaneous pocket inferiorly to allow placement of the port itself. I then placed a dilating sheath over the guidewire into the left subclavian vein via sterile Seldinger technique. This was once again done and confirmed via fluoroscopic guidance. I then removed the dilator and the guidewire, now just leaving the sheath in the vein. I then fed the previously flushed catheter into the left subclavian vein under fluoroscopic guidance. At approximately 20 cm, the catheter was noted to be near the atrial caval junction. I then peeled away the sheath, now just leaving the catheter in the vein. I then was able to easily draw and flush from the catheter. The catheter was cut to fit and attached to the port itself. The port was placed into the previously made subcutaneous pocket and sutured in with 0 Ethibond suture. Final fluoroscopic view showed the termination of the catheter at the atrial caval junction with a nice smooth curvature back to the port itself. I was able to gain access to the port with a Serra needle and was able to easily draw and flush from the port. I then flushed 4 cc of a final heparin flush into the port. The incision was closed with 3 0 Vicryl suture in the subcutaneous tissue and the skin was closed with 4 O Monocryl subcuticular suture. Dermabond was then placed on wound. The patient tolerated the procedure well and will be sent to the recovery room in stable condition. Implants L SCV VAD Estimated Blood Loss 25 Drains No Packing No Pathology None sent Complications No immediate complications Condition Stable Disposition PACU [facility] Billing Surgery - Charge Forward: Surgery Billing
[2022-04-10 08:45] VITALS: BP 104/40; PULSE 69; RESP 16; O2SAT 97
[2022-04-10 09:15] VITALS: BP 154/53; PULSE 55; RESP 16
[2022-04-10 09:45] VITALS: BP 138/59; PULSE 52; RESP 16
== END 2022-04-10 10:17 | disposition home or self-care (01) ==
PROVIDERS: PCP Family Medicine; Visit Provider Surgery
PROC: (CPT 36561; principal; 2022-04-10 07:30)
DX: C43.61 Malignant melanoma of right upper limb, including shoulder (principal); I10 Essential (primary) hypertension; E78.5 Hyperlipidemia, unspecified; Z95.1 Presence of aortocoronary bypass graft; Z79.82 Long term (current) use of aspirin
CPT/HCPCS: 36561; 36415; 77001; 85025; C1788; J0690; J1644; J1885; J2250; J2370; J2704; J3010; J7030; J7120

== ENCOUNTER 2022-04-15 13:43 | Outpatient (CLI) | payer MEDICARE, BC, SELFPAY ==
--- NOTE | ~2022-04-15 | PE_ITS ---
EXAMINATION: PET skull to mid thigh DATE: 04/15/2022 15:34 INDICATION: Malignant melanoma of the third digit of the right hand. TECHNIQUE: Blood glucose level was 104 mg/dL. 10.686 mCi of 18-fluorodeoxyglucose (18-FDG) was admini stered i.v. Low dose computed tomography (CT) images were acquired from the base of the brain to the proximal thighs for attenuation correction and anatomic localization. Positron emission tomography (P ET) images were acquired in the same distribution beginning 63 minutes after injection. Images includ ing fused PET/CT images were reconstructed in axial, coronal, and sagittal planes. Automated exposure control technique was employed. The dose-length product was 908.98mGy-cm. COMPARISON: None FINDINGS: Head/neck: There is symmetric increased activity in the oral cavity, palatine tonsils, parotid glands, submandi bular glands, laryngeal muscles and ocular muscles without CT correlate, likely physiologic. There is mild increased uptake extending along the left common carotid artery without radiologic correlate. N o pathologically enlarged cervical lymphadenopathy or suspicious foci of increased FDG uptake in the visualized head or neck. Chest: Lungs are clear with no suspicious pulmonary nodules, pneumonia, pulmonary edema or pleural effusion. Cardiomegaly. Atherosclerotic coronary artery calcification and change of prior mediastinal main cor onary artery bypass grafting. Left subclavian central venous port catheter with distal tip at the sup erior cavoatrial junction. Surgical clips at the right axilla suggesting prior axillary lymph node di ssection. No pathologically enlarged or abnormal FDG avid thoracic lymphadenopathy. Abdomen/pelvis/proximal thighs: Physiologic renal accumulation and excretion of FDG activity in the kidneys, bladder and along portio ns of ureters. Normal degree and heterogenous pattern of increased uptake throughout the liver withou t radiologic correlate or dominant FDG avid lesion. Cholecystectomy clips at the gallbladder fossa. T he pancreas, spleen and bilateral adrenal glands are normal. There is mild colonic diverticulosis wit h a sigmoid predominance. There is no adjacent inflammatory change to suggest diverticulitis. Mild u ptake scattered throughout the bowels without radiologic correlate, also likely physiologic. No other abnormal foci of increased FDG uptake or pathologically enlarged lymphadenopathy in the abdomen, pel vis or proximal thighs. Musculoskeletal: No suspicious lytic, blastic or FDG avid bone lesions. Instrumented anterior and posterior spinal fus ion at L4-L5 with interbody bone graft cages and bilateral vertical kayli and pedicle screw fixation. T here is a small focus of prominent increased uptake along the skin surface at the ulnar side of the m id right forearm likely representing skin contamination from the injecting catheter which was placed at the right antecubital fossa. There is shortening of the right third digit consistent with amputati on for reported melanoma resection. There is mild diffuse uptake extending from the remaining third d igit proximally to the central and likely physiologic healing response to prior surgery. IMPRESSION: 1. Mild uptake extending proximally nearly linear pattern along the remaining right third digit into the central and with the low degree of activity in the configuration favoring physiologic healing res ponse to prior surgery. 2. Small focus of increased uptake along the skin surface at the ulnar side of the mid right forearm most likely representing skin contamination but would correlate with physical exam. No other lesions suspicious for metastatic disease. Reviewed, dictated and finalized at location A. 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 Mild uptake exten
[2022-04-15 14:01] LABS: Glucose Point of Care 104 mg/dl (65-105)
== END 2022-04-15 13:44 | disposition home or self-care (01) ==
LOC: ANHIMG 13:47
PROVIDERS: PCP Family Medicine; Visit Provider Internal Medicine Hematology & Oncology
DX: C43.61 Malignant melanoma of right upper limb, including shoulder (principal)
CPT/HCPCS: 78815; A9552

== ENCOUNTER 2022-04-16 13:35 | Outpatient (CLI) | payer MEDICARE, BC, SELFPAY ==
[2022-04-16 17:34] LABS: Alanine Aminotransferase 29 U/L (6-35); Albumin Level 4.3 g/dL (3.5-5.1); Alkaline Phosphatase 92 U/L (38-126); Anion Gap 7 mmol/L (8-16); Aspartate Amino Transferase 31 U/L (14-36); Bilirubin,Total 1.6 mg/dL (0.2-1.3); Blood Urea Nitrogen 18 mg/dL (7-17); Calcium 9.1 mg/dL (8.4-10.2); Carbon Dioxide 30 mmol/L (22-30); Chloride 104 mmol/L (98-107); Estimated Glomerular Filt Rate > 60; Glucose 91 mg/dL (65-110); Lactate Dehydrogenase 203 U/L (120-246); Potassium 4.3 mmol/L (3.4-5.0); Sodium 141 mmol/L (137-145)
[2022-04-16 19:04] LABS: Hepatitis B Surface Antigen Negative (Negative)
[2022-04-21 06:22] LABS: Hepatitis B Core Ab Total Nonreactive (Nonreactive)
== END 2022-04-16 13:36 | disposition home or self-care (01) ==
LOC: ANHGOSHLAB 13:36
PROVIDERS: PCP Family Medicine; Visit Provider Internal Medicine Hematology & Oncology
DX: C43.61 Malignant melanoma of right upper limb, including shoulder (principal)
CPT/HCPCS: 36415; 80053; 83615; 86480; 86704; 87340

== ENCOUNTER 2022-04-23 12:30 | Outpatient (RCR) | payer MEDICARE, BC, SELFPAY ==
--- NOTE | 2022-03-26 13:37 | OTOPEVAL1 ---
Assessment and note entered by Kristine Damon OTR/Pau Evaluation Information Assessment Status Evaluation Diagnosis R Digit 3 amputation Subjective Information Patient presents to outpatient s/p a R digit 3 amputation at the middle phalanx due to a melanoma on 03/06/2022. Patient reports since surgery finger has experienced pain with bumping it. Patient reports it is still difficult to open doors and performing hand writing tasks, but since surgery has been able to get back to completing most tasks . Reported Pain Level Pain Score 0: Self Report Assessment OT Clinical Summary Amparo is a 76 year old R hand dominant female who presents to Outpatient OT following a R Digit 3 amputation at the middle phalanx near the PIP joint. Patient report occasional pain in digit 3, mainly if finger is bumped . Patient reports has some difficulty with opening doors with R hand. Patient demonstrates decreased motion at the MCP joint of digit 3 in addition to a well healing surgical scar over the dorsal aspect of the PIP/ middle phalanx. Patient would benefit from skilled OT for HEP instruction, UE exercise, scar massage in order to increase functional use of R UE. Plan of Care Interventions Therapeutic Exercise,Manual Therapy,Therapeutic Activities,Self-Care/Home Management OT Services Indicated Yes Treatment Frequency and 1x/week, 4 weeks Duration These treatments will address the objective and functional deficits as defined above. The patient will be advanced safely and appropriately in order for the patient to progress towards his/her prior level of function. Additional exercises will be introduced and as well as a comprehensive home exercise program upon discharge, if needed, ?to ensure carryover of functional gains achieved in the clinic. This treatment plan has been reviewed and agreement upon by the patient.
--- NOTE | 2022-04-23 13:16 | OTOPDC ---
Assessment and note entered by Kristine Damon, OT Evaluation Information Assessment Status Discharge Diagnosis R Digit 3 amputation Subjective Information Patient presents to outpatient s/p a R digit 3 amputation at the middle phalanx for removal of a melanoma on 03/06/2022. Patient reports since beginning therapy has decreased pain with bumping finger, decreased hypersensitivity, is able to complete hand writing tasks and open doors easier. Patient reports will occasionally drop small items such as an earring due to forgetting the tip of digit 3 is missing but functionally is able to complete all ADLs and activities with R UE with no difficulties. Reported Pain Level Pain Score 0: Self Report Assessment OT Clinical Summary Amparo is a 76 year old R hand dominant female who presents to Outpatient OT following a R Digit 3 amputation at the middle phalanx near the PIP joint. Patient has attended therapy for 4 weeks and reports is now able to functionally use R UE for all daily tasks and activities including sewing and cross stitching. Patient reports hypersensitivity has improved and the only time there is pain is with bumping finger. Patient demonstrates progress with active and passive ROM of MCP joint flexion, no active ROM to PIP joint and very limited passive ROM due to short residual limb at the PIP joint. Patient is pleased with progress and is to be discharged from skilled OT today with independence with all HEP materials. Patient agreeable to plan. Plan of Care OT Services Indicated No
== END 2022-04-23 15:21 | disposition home or self-care (01) ==
LOC: ANHGOSHOT 12:30
PROVIDERS: PCP Family Medicine; Visit Provider Plastic Surgery
DX: Z47.81 Encounter for orthopedic aftercare following surgical amputation (principal); Z89.021 Acquired absence of right finger(s)
CPT/HCPCS: 36415; 80053; 83615; 85025; 85610; 85730; 86480; 86704; 87340; 97110; 97140; 97165; 97760; L3806

== ENCOUNTER 2022-08-21 03:17 | Day surgery (SDC) | payer MEDICARE, BC, SELFPAY ==
[2022-08-13 09:42] VITALS: BMI 32.2
--- NOTE | 2022-08-13 10:00 | PC.NURSE ---
Report to the Outpatient Waiting Room, entrance under the green pavilion located off [facility], at time __10:00AM on date __08/21/22 . Planned Procedure Time: __12:00PM . Time changes happen often and if your time is changed the preop area will call you the afternoon before. - You and your visitor will be asked to self-screen and do not enter if you have any COVID symptoms. - A mask is optional within the hospital at this time. Patients may have clear liquids (water, carbonated beverages, clear teas, apple juice) until 3 hours prior to surgery with a maximum of 20 ounces. - No food from midnight until time of surgery Take the following medications with a SIP of water the morning of surgery: ___AMLODIPINE, METOPROLOL DO NOT STOP ANY OF YOUR OTHER PRESCRIPTION MEDICATIONS PRIOR TO SURGERY ?EXCEPT THE FOLLOWING Medications to discontinue per physician __NONE Date to take last dose Please no make-up, nail croatian, hairspray, perfume, deodorant, or body powder the day of surgery. No jewelry (including any body piercings) or valuables the day of surgery, leave them at home. Please take a shower or bath the night before, or the morning of, surgery with an antibacterial soap. Wear comfortable, loose fitting clothing. Children are encouraged to wear pajamas. - Jewelry must be removed prior to entering the operating room. Rings and piercings that are not removed may be cut off. - The hospital will not accept responsibility for valuables. - Please leave all valuables, including medications, at home the day of surgery. If you are going home after surgery, a licensed package car driver must drive you home. - NO public transportation without another adult if you receive anesthesia. - We recommend that an adult stay with you for 24 hours following discharge. - We also recommend that you do not drive, make important decision, drink alcoholic beverages, or take any drugs that were not prescribed by your health care provider for at least 24 hours after your discharge time. Follow any additional instructions given to you from your surgeon. If you or anyone in your household have experienced Covid symptoms in the past week, please notify your surgeon or the nurse liaison at the phone number below for possible testing. Telephone instructions given to _PATIENT and asked if any additional questions and then verbalized understanding. Patient advised to call surgeon office or pre surgery nurse liaison [phone] if any additional questions.
--- NOTE | 2022-08-21 08:29 | PM.SD2 ---
Same Day Admit/Disch: HPI History of Present Illness Chief complaint: Hx of Melanoma Rt Upper Extremity Narrative: Amparo Alvarez is a 77 year old female who had melanoma on a finger in her right hand. She is status post amputation and sentinel node biopsy. She had a Port-A-Cath placed in April. She is receiving immunotherapy and tolerating it well. The Port-A-Cath has caused her discomfort in the shoulder and at the Port-A-Cath site. She would like to have it removed. She is taken to surgery at this time for removal right subclavian Port-A-Cath. [facility] Past Medical History Medical History Abnormal mammogram of left breast Acute pain of left hip Acute UTI BMI 33.0-33.9,adult COVID-19 Dietary counseling and surveillance (07/30/17) Frequent urination Hyperlipidemia Hypertension Injury of facial nerve, left side, initial encounter Post-menopausal Post-nasal drainage Preoperative clearance Serous otitis media White coat syndrome without diagnosis of hypertension Surgical History Surgical History H/O breast biopsy History of cholecystectomy History of hysterectomy Hx of CABG x2, 2009 Family History Family History Father Hypertension Family history of throat cancer Mother Family history of cardiac disorder Family history of malignant neoplasm of breast in first degree relative Breast cancer Cerebrovascular accident Sibling Leukemia Sibling Breast cancer Social History Social History Smoking status: Never smoker Second hand tobacco smoke exposure: No Alcohol intake: current Substance use: never Substance use type: does not use Lack of Transportation: No Lack of Food: Never True Current Housing: I Have Housing Concerned About Future Housing: No Difficulty Paying Gas/Electric Bills: No Difficulty Paying for Meds: No Currently Unemployed: No Difficulty w/ Childcare or Family Care: No Living arrangements: with family Additional living arrangements comments: [place] Occupation/Education: retired Additional occupation/education comments: [employer] Gender identity (if verbalized by the patient): Female Spiritual care concerns: No Same Day Admit/Disch: Med Pre-admit Medications Home Medications Medication Instructions Recorded Confirmed Type amlodipine 5 mg tablet 5 mg PO DAILY 01/18/19 08/21/22 History atorvastatin 40 mg tablet (Lipitor) 40 mg PO HS 01/18/19 08/13/22 History metoprolol tartrate 25 mg tablet 25 mg PO BID 01/18/19 08/21/22 History aspirin 81 mg tablet,delayed 81 mg PO DAILY 11/28/20 08/13/22 History release (Adult Low Dose Aspirin) losartan 50 mg tablet 50 mg PO QAM 11/28/20 08/13/22 History nitroglycerin 0.4 mg sublingual 0.4 mg sublingual Q5M PRN Chest 11/28/20 08/13/22 History tablet Pain nivolumab 240 mg/24 mL intravenous 240 mg IV MONTHLY 05/27/22 08/13/22 History solution cetirizine 10 mg tablet (Zyrtec) 10 mg PO DAILY PRN Allergy Symptoms 07/11/22 08/13/22 History acetaminophen 500 mg tablet 500 mg PO Q6H PRN Pain 08/13/22 08/13/22 History tramadol 50 mg tablet 50 - 100 mg PO Q6H PRN pain #10 08/21/22 Rx tabs Exam Const: General: comfortable, no acute distress, alert and awake HENMT: Head: normocephalic and atraumatic Mouth: Yes Normal oral and palatal mucosa present Eyes: Conjunctivae: conjunctivae normal Pupils: Equal, round and reactive pupils present EOM: EOMs intact bilaterally Neck: Neck: normal visual inspection, no lymphadenopathy and nontender Resp: Effort & Inspection: normal respiratory effort Auscultation: clear to auscultation bilaterally Cardio: Rate: regular rate Rhythm: regular rhythm Heart sounds: no gallops, no murmurs and no rubs GI: Inspe
[2022-08-21] MEDS: LACTATED RINGERS 1,000 ML 30 ML IV CONT (10:31)
--- NOTE | 2022-08-21 11:03 | WPDANESEPPF ---
Anes - Initial Pre Proc Eval Procedure: Operation Date: 08/21/22 12:00 Proposed Procedures p Removal Sonny Cath - Malki Posey MD Date/Time: 08/21/22 11:03 Surgeon: Malik Posey MD Pre Op Diagnosis: Hx of Melanoma Rt Upper Extremity Patient Data Age: 77 Gender: F Height: 1.57 m Weight: 80.1 kg Allergies Allergy/AdvReac Type Severity Reaction Status Date / Time Sulfa (Sulfonamide AdvReac Unknown Rash Verified 08/21/22 10:32 Antibiotics) Home Medications Medication Instructions Recorded Confirmed Type amlodipine 5 mg tablet 5 mg PO DAILY 01/18/19 08/21/22 History atorvastatin 40 mg tablet (Lipitor) 40 mg PO HS 01/18/19 08/13/22 History metoprolol tartrate 25 mg tablet 25 mg PO BID 01/18/19 08/21/22 History aspirin 81 mg tablet,delayed 81 mg PO DAILY 11/28/20 08/13/22 History release (Adult Low Dose Aspirin) losartan 50 mg tablet 50 mg PO QAM 11/28/20 08/13/22 History nitroglycerin 0.4 mg sublingual 0.4 mg sublingual Q5M PRN Chest 11/28/20 08/13/22 History tablet Pain nivolumab 240 mg/24 mL intravenous 240 mg IV MONTHLY 05/27/22 08/13/22 History solution cetirizine 10 mg tablet (Zyrtec) 10 mg PO DAILY PRN Allergy Symptoms 07/11/22 08/13/22 History acetaminophen 500 mg tablet 500 mg PO Q6H PRN Pain 08/13/22 08/13/22 History Patient hx anesthesia problems: none Family hx anesthesia problems: none Results Review: All pre-operative results and documents have been reviewed as part of the pre-operative evaluation. [facility] Past Medical History Medical History Abnormal mammogram of left breast Acute pain of left hip Acute UTI BMI 33.0-33.9,adult COVID-19 Dietary counseling and surveillance (07/30/17) Frequent urination Hyperlipidemia Hypertension Injury of facial nerve, left side, initial encounter Post-menopausal Post-nasal drainage Preoperative clearance Serous otitis media White coat syndrome without diagnosis of hypertension Surgical History Surgical History H/O breast biopsy History of cholecystectomy History of hysterectomy Hx of CABG x2, 2009 Family History Family History Father Hypertension Family history of throat cancer Mother Family history of cardiac disorder Family history of malignant neoplasm of breast in first degree relative Breast cancer Cerebrovascular accident Sibling Leukemia Sibling Breast cancer Social History Social History Smoking status: Never smoker Second hand tobacco smoke exposure: No Alcohol intake: current Substance use: never Substance use type: does not use Lack of Transportation: No Lack of Food: Never True Current Housing: I Have Housing Concerned About Future Housing: No Difficulty Paying Gas/Electric Bills: No Difficulty Paying for Meds: No Currently Unemployed: No Difficulty w/ Childcare or Family Care: No Living arrangements: with family Additional living arrangements comments: [place] Occupation/Education: retired Additional occupation/education comments: [employer] Gender identity (if verbalized by the patient): Female Spiritual care concerns: No Anes - Eval Final PreProcedure Day of Procedure 08/21/22 11:03 Patient weight: obese Heart: regular rate and rhythm Lungs: clear to auscultation Airway: Mallampati scale class II Neurological: alert and oriented Last oral intake: >/= 8 hours ASA classification: III Emergent: no Anesthetic plan: proceed Anesthesia type and monitoring: general GIVS and standard monitoring Results Review: All pre-operative results and documents have been reviewed as part of the pre-operative evaluation. Informed Consent: The patient's anesthetic plan and its attendant risks and bene
--- NOTE | 2022-08-21 11:44 | WPDHPUPDATE1 ---
History and Physical Update Update Date/Time: 08/21/22 11:44 History and Physical has been reviewed, including an updated exam of the patient. There are NO changes in the patient's condition. Risks, benefits, and alternatives have been discussed and questions answered. Patient agrees to proceed with procedure.
[2022-08-21 12:41] VITALS: BP 109/57; PULSE 64; RESP 16; O2SAT 97
--- NOTE | 2022-08-21 12:42 | P.OP_ITS ---
Procedure Note - Detailed Date of Procedure 08/21/22 Pre-op Diagnosis Hx of Melanoma Rt Upper Extremity, Port-A-Cath dysfunction Post-op Diagnosis Same Procedure Performed Removal left subclavian Port-A-Cath Surgeon Malik Posey MD Speech Language Assistant Ghazala Jones [facility] Anesthesia MAC and Local Indications Patient had a Port-A-Cath placed last April for immunotherapy. She has had pain in her shoulder and at the Port-A-Cath site. She prefers to have the Port-A-Cath removed and receive her immunotherapy per peripheral vein. She is taken to surgery now to have the Port-A-Cath removed. Findings Port-A-Cath was in the subcutaneous and was attached to the overlying skin. It was tilted so the cephalad side was considerably higher than the caudad side. It was removed intact. Description of Procedure Patient was taken to surgery and placed in a supine position. Anesthesia was administered and the left subclavian and left upper chest were prepped and draped. The proposed elliptical excision to remove the old scar was drawn on the skin. Local was infiltrated into the skin and all around the area of the Port-A-Cath. The old scar was then excised and discarded. Cautery was used for hemostasis. We elevated the skin and carefully dissected the Port-A-Cath off the skin. Some Ethibond sutures were noted. These were divided and the Port-A-Cath was carefully dissected free of its fibrous sheath. Once it was free of its attachments to the pocket, it was removed removing the venous limb without difficulty and intact. Pressure was held at the exit site as there was some back bleeding from the subclavian vein. The area where the back bleeding was occurring was oversewn with 3-0 Monocryl and closed. I then infiltrated additional local into the pocket. I excised most of the fiber sheath. The wound was then closed in layers with 3-0 Monocryl for the deeper subcutaneous tissues. The skin was closed with subcuticular interrupted 3-0 Monocryl skin suture. The wound was dressed with Exofin surgical adhesive. Patient was awakened and taken to outpatient surgery in good condition. Sponge and needle counts were correct x2. Estimated Blood Loss -5 Drains No Packing No Pathology None sent Complications No immediate complications Condition Stable Disposition Same day [facility] Billing Surgery - Charge Forward: Surgery Billing (Removal left subclavian Port-A-Cath)
[2022-08-21 13:10] VITALS: BP 108/58; PULSE 60; RESP 20
[2022-08-21 13:40] VITALS: BP 110/60; PULSE 60; RESP 20
== END 2022-08-21 13:45 | disposition home or self-care (01) ==
PROVIDERS: PCP Family Medicine; Visit Provider Surgery
PROC: (CPT 36589; principal; 2022-08-21 12:00)
DX: T82.848A Pain due to vascular prosthetic devices, implants and grafts, initial encounter (principal); M25.512 Pain in left shoulder; C43.61 Malignant melanoma of right upper limb, including shoulder; Y83.8 Other surgical procedures as the cause of abnormal reaction of the patient, or of later complication, without mention of misadventure at the time of the procedure; I10 Essential (primary) hypertension; E78.5 Hyperlipidemia, unspecified; Z79.82 Long term (current) use of aspirin; Z95.1 Presence of aortocoronary bypass graft; E66.9 Obesity, unspecified; Z68.32 Body mass index [BMI] 32.0-32.9, adult
CPT/HCPCS: 36590; J0690; J2250; J2405; J2704; J3010; J7120

== ENCOUNTER → 2023-01-07 14:44 | Outpatient (CLI) | payer MEDICARE, BC, SELFPAY ==
--- NOTE | ~2023-01-07 | MM_ITS ---
EXAMINATION: MM screening inocencio BI w shaji HISTORY: Screening mammogram TECHNIQUE: Craniocaudal and mediolateral oblique 3-D tomosynthesis images were obtained and synthetic 2-D images were generated. CAD analysis was submitted and interpreted. COMPARISON: 10/04/2021 bilateral screening mammogram 01/01/2021 diagnostic bilateral mammogram and limited right breast ultrasound 08/01/2016 diagnostic left mammogram 07/22/2016 bilateral screening mammogram BREAST PARENCHYMAL COMPOSITION: There are scattered areas of fibroglandular density. FINDINGS: Surgical clips are again noted in the posterior upper inner right breast. There are surgical clips in the right axillary area. There is increased prominence of right axillary nodes and soft tissue irregularity of the right axillary region compared to 07/22/2016 and 10/04/2021. Diagnostic right mammogram including attention to the right axillary area in particular, and right ax illary ultrasound are recommended. Biopsy marker in the posterior upper outer left breast. History of prior benign left breast and right axillary biopsies. No interval breast mass or new architectural distortion, skin thickening or retraction is evident. Ag ain noted are scattered bilateral benign calcifications. IMPRESSION: 1. Increased prominence and some irregularity of right axillary lymph nodes 2. Diagnostic right mammogram is recommended as well at right axillary ultrasound BI-RADS Category 0: Incomplete: Needs additional imaging evaluation. Reviewed, dictated and finalized at location A. OR ELECTRICAL CONTROLS ENGINEER IMPRESSION: 1. Increased prominence and some irregularity of right axillary lymph nodes 2. Diagnostic right mammogram is recommended as well at right axillary ultrasou nd BI-RADS Category 0: Incomplete: Needs additional imaging evaluation.
== END ==
PROVIDERS: PCP Family Medicine; Visit Provider Family Medicine
DX: Z12.31 Encounter for screening mammogram for malignant neoplasm of breast (principal); R92.8 Other abnormal and inconclusive findings on diagnostic imaging of breast
CPT/HCPCS: 77063; 77067

== ENCOUNTER → 2023-02-10 14:11 | Outpatient (CLI) | payer MEDICARE, BC, SELFPAY ==
--- NOTE | ~2023-02-10 | MMUS_ITS ---
EXAMINATION: MM diagnostic inocencio RT w shaji, US axilla RT HISTORY: Patient with history of right upper extremity melanoma and right axillary lymph node dissect ion with increasing lymphadenopathy on screening mammography TECHNIQUE: Additional 3-D tomosynthesis images of the right breast were performed and synthetic 2-D i mages were generated. CAD analysis was submitted and interpreted. High resolution limited right axill janie ultrasound was performed. COMPARISON: 01/07/2023, 10/04/2021, 01/01/2021, 07/22/2016 FINDINGS: MAMMOGRAPHIC FINDINGS: No suspicious mass, calcification, or architectural distortion are identified in the breast to sugges t malignancy. Right axillary lymph nodes have enlarged when compared to multiple prior mammographic e xaminations. ULTRASOUND: There is a 2.1 x 1.6 cm oval, circumscribed, parallel, anechoic mass with posterior acoustic enhancem ent and no internal vascularity in the right axilla. Adjacent masses measuring 1.0 x 0.9 cm and 1.6 x 1.6 cm with similar sonographic features are seen. In addition, there are normal-appearing lymph nod es of the right axilla. IMPRESSION: 1. Indeterminate right axillary masses which could reflect necrotic lymph nodes versus possible lymph edema and cystic change. 2. Ultrasound-guided right axillary biopsy is recommended. BI-RADS category 4, suspicious findings. Reviewed, dictated and finalized at location A. ICE PROVIDER IMPRESSION: 1. Indeterminate right axillary masses which could reflect necrotic lymph nodes versus possible lymphedema and cystic change. 2. Ultrasound-guided right axillary biopsy is recommended. BI-RADS category 4, suspicious findings.
== END ==
PROVIDERS: PCP Internal Medicine Hematology & Oncology; Visit Provider Family Medicine
DX: R22.31 Localized swelling, mass and lump, right upper limb (principal)
CPT/HCPCS: 76882; 77061; 77065; G0279

== ENCOUNTER 2023-02-26 10:07 | Outpatient (CLI) | payer MEDICARE, BC, SELFPAY ==
--- NOTE | ~2023-02-26 | US_ITS ---
EXAMINATION: US biopsy lymph node DATE: 02/26/2023 11:16 INDICATION: Noninfective disorder of lymphatic vessels and lymph nodes. Enlarged right axillary lymph node. TECHNIQUE: The procedure including the risks and benefits was discussed with the patient. Risks discu ssed included bleeding and infection. The patient understood the risks and agreed to proceed. The sk in overlying the right axilla was prepped and draped in usual sterile fashion. Anesthetic was admini stered with 1% lidocaine subcutaneously. An 18 gauge core biopsy needle was advanced under continuou s ultrasound observation to the lesion of interest. 8 core biopsy specimens were obtained, 5 placed in RPMI media and 3 in formalin. The needle was removed and the entry site was cleaned and dressed. Post procedure ultrasound demonstrated no hemorrhage. FINDINGS: Ultrasound images demonstrate an abnormal 2.8 x 2.4 x 1.8 cm very hypoechoic right axillary mass suspicious for metastatic lymph nodes. IMPRESSION: 1. Successful Ultrasound-guided biopsy of a 2.8 x 2.4 x 1.8 cm right axillary mass suspicious for met astatic lymph node. Reviewed, dictated and finalized at location A. O ELECTRIC OPERATOR IMPRESSION: 1. Successful Ultrasound-guided biopsy of a 2.8 x 2.4 x 1.8 cm right axillary m ass suspicious for metastatic lymph node.
== END 2023-02-26 10:08 | disposition home or self-care (01) ==
PROVIDERS: PCP Family Medicine; Referring Provider Internal Medicine Hematology & Oncology; Visit Provider Family Medicine
DX: I89.9 Noninfective disorder of lymphatic vessels and lymph nodes, unspecified (principal); R92.8 Other abnormal and inconclusive findings on diagnostic imaging of breast; C77.3 Secondary and unspecified malignant neoplasm of axilla and upper limb lymph nodes
CPT/HCPCS: 38505; 76942; 88184; 88305

== ENCOUNTER 2023-03-12 11:44 | Outpatient (CLI) | payer MEDICARE, BC, SELFPAY ==
--- NOTE | ~2023-03-12 | PE_ITS ---
EXAMINATION: PET skull to mid thigh DATE: 03/12/2023 13:37 INDICATION: Malignant melanoma of right upper extremity. TECHNIQUE: Blood glucose level was 113 mg/dL. 11.483 mCi of 18-fluorodeoxyglucose (18-FDG) was admini stered i.v. Low dose computed tomography (CT) images were acquired from the base of the brain to the proximal thighs for attenuation correction and anatomic localization. Automated exposure control was employed. Dose-length product (DLP) was 1009 mGy-cm. Positron emission tomography (PET) images were a cquired in the same distribution. COMPARISON: Head CT 04/15/2022 FINDINGS: Head/neck: There are likely changes of ocular lens replacement surgeries. There are no pathologically enlarged lymph nodes. Chest: There is mild emphysema. No pleural effusion. Cardiomegaly is noted. There are changes of ana nary artery bypass grafting. No pericardial effusion. There is a small sliding hiatal hernia. There i s a right subpectoral lymphadenopathy with increased activity. For example, a 3.3 x 2.7 cm node demon strates maximum SUV of 26.1. There is right axillary lymphadenopathy with increased activity. There i s increased activity in left T4 transverse process without abnormal CT correlate. Abdomen/pelvis/proximal thighs: The liver is normal. There is a 10 mm mass in the spleen with maximum SUV of 5.7. There are changes of cholecystectomy. The pancreas, adrenal glands, and left kidney are normal. There are cysts in right kidney measuring up to 5 mm. There is diverticulosis of the colon wi thout evidence of diverticulitis. There are no dilated loops of bowel. Aortic atherosclerosis is note d. There are no pathologically enlarged lymph nodes. There is no free intraperitoneal fluid. There ar e changes of posterior fusion procedure in lumbar spine. IMPRESSION: 1. Right axillary and subpectoral lymphadenopathy with increased activity, new from 04/15/22, consisten t with metastatic disease. 2. Increased activity in left T4 transverse process without abnormal CT correlate, new from 04/15/22, s uspicious for metastatic disease. 3. 10 mm splenic mass with increased activity, new from , suspicious for metastatic disease. Reviewed, dictated and finalized at location A. TMENT RENTAL AGENT IMPRESSION: 1. Right axillary and subpectoral lymphadenopathy with increased activity, new from 04/15/22, consistent with metastatic disease. 2. Increased activity in left T4 transverse process without abnormal CT correla te, new from 04/15/22, suspicious for metastatic disease. 3. 10 mm splenic mass with increased activity, new from , suspicious for metastatic disease.
[2023-03-12 12:03] LABS: Glucose Point of Care 113 mg/dl (65-105)
== END 2023-03-12 11:45 | disposition home or self-care (01) ==
PROVIDERS: PCP Family Medicine; Visit Provider Internal Medicine Hematology & Oncology
DX: C43.61 Malignant melanoma of right upper limb, including shoulder (principal)
CPT/HCPCS: 78815; A9552

== ENCOUNTER 2023-06-15 13:13 | Outpatient (CLI) | payer MEDICARE, BC, SELFPAY ==
--- NOTE | ~2023-06-15 | CT_ITS ---
Clinical Indication: Malignant melanoma CT Scan of the Chest, Abdomen, and Pelvis with Contrast: Technique: Contiguous sections were acquired throughout the chest, abdomen, and pelvis after intraven ous administration of 100 cc of Omnipaque 350. Dose reduction technique was used on this scan by uti lizing automated exposure control and iterative reconstruction technique. The dose-length product (DL P) was 995.98 mGy-cm. COMPARISON: PET/CT dated 03/12/2023 Findings: Bulky, enlarged right axillary lymph nodes are again present, increased in size from prior exam, with largest node now measuring approximately 3.4 cm in maximum diameter. No left axillary lymphadenopath y seen. No mediastinal/hilar lymphadenopathy seen. The mediastinal soft tissues and vascular structur es appear normal. There is no evidence of pleural or pericardial effusion. The lungs are clear. No pulmonary nodules or infiltrates are noted. The liver, pancreas, adrenals and left kidney are within normal limits. There are 2 hypodense, noncys tic splenic lesions, largest measuring 1.6 cm (axial image 52), smaller measuring 1.1 cm (axial image 114). Status post cholecystectomy. There is a 6 mm suspected small cystic lesion at the peripheral a spect of the right kidney (axial image 129). There are atherosclerotic calcifications of the aorta. No lymphadenopathy. No bowel obstruction or bowel wall thickening. There is no evidence to suggest acute appendicitis. Urinary bladder is unremarkable. No pelvic mass seen. No ascites. There is a lytic lesion involving the left transverse process of T4. Impression: Mild interval progression of disease. Metastatic right axillary lymphadenopathy is increased in size. There are now 2 splenic lesions which are suspicious for metastatic disease (previously 1 identified lesion on prior PET/CT). Lytic lesion in the left T4 transverse process is compatible with metastasi s. 6 mm noncystic right renal lesion is indeterminate, but a small neoplastic lesion is a consideration. Reviewed, dictated and finalized at location M. Impression: Mild interval progression of disease. Metastatic right axillary lymphadenopathy is increased in size. There are now 2 splenic lesions which are suspicious for metastatic disease (previously 1 identified lesion on prior PET/CT). Lytic les ion in the left T4 transverse process is compatible with metastasis. 6 mm noncystic right renal lesion is indeterminate, but a small neoplastic lesi on is a consideration.
== END 2023-06-15 13:14 | disposition home or self-care (01) ==
LOC: ANHIMG 13:14
PROVIDERS: PCP Family Medicine; Visit Provider Internal Medicine Hematology & Oncology
DX: C43.61 Malignant melanoma of right upper limb, including shoulder (principal); N28.89 Other specified disorders of kidney and ureter
CPT/HCPCS: 71260; 74177; Q9967

== ENCOUNTER 2023-08-17 12:18 | Outpatient (CLI) | payer MEDICARE, BC, SELFPAY ==
--- NOTE | ~2023-08-17 | MR_ITS ---
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 TECHNIQUE: Magnetic resonance imaging (MRI) of the brain and brainstem was performed without and with 15 mL MultiHance intravenous contrast. COMPARISON: Brain MRI 12/29/2014 FINDINGS: There are scattered areas of nonspecific increased T2-weighted signal intensity in the cere bral white matter. There is no intracranial hemorrhage, acute infarction, or abnormal intracranial ma ss lesion. The ventricles are normal in size. There are likely changes of ocular lens replacement loki geries. The paranasal sinuses are clear. The mastoid air cells are normal. IMPRESSION: 1. No evidence of metastatic disease. 2. Moderate nonspecific cerebral white matter disease, which likely represents chronic small vessel i schemic disease. Reviewed, dictated and finalized at location E. IMPRESSION: 1. No evidence of metastatic disease. 2. Moderate nonspecific cerebral white matter disease, which likely represents chronic small vessel ischemic disease.
--- NOTE | ~2023-08-17 | CT_ITS ---
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 TECHNIQUE: Computed tomography (CT) of the chest, abdomen, and pelvis was performed with 100 mL Omnip aque 350 intravenous contrast. Automated exposure control and iterative reconstruction technique were employed. The dose-length product was 682.34 mGy-cm. COMPARISON: CT 06/15/2023, PET CT 03/12/2023 FINDINGS: CHEST CT: There is mild scarring at the lung apices. No pleural effusion. There is right axillary and right sub pectoral lymphadenopathy. For example, a right subpectoral node measures 5.4 x 5.0 cm, increased from 3.9 x 4.0 cm on 06/15/2023. The heart size is normal. There are changes of coronary artery bypass steve ting. No pericardial effusion. There is a mass involving left T4 transverse process and left pedicle with mild central canal stenosis with interval worsening. ABDOMEN/PELVIS CT: There are two masses in the spleen measuring up to 2.6 cm, increased from 1.5 cm on 06/15/2023. The castro er, pancreas, and adrenal glands are normal. There are changes of cholecystectomy. There are cysts in the kidneys measuring up to 6 mm. There is diverticulosis of the colon without evidence of diverticu litis. There are no dilated loops of bowel. The appendix is not visualized. There are no pathological ly enlarged lymph nodes. There is no ascites. There are changes of posterior fusion procedure at L4-L 5. There is moderate lumbar spondylosis. IMPRESSION: 1. Worsened right axillary and subpectoral lymphadenopathy, T4 lytic lesion, and splenic masses, cons istent metastatic disease. Reviewed, dictated and finalized at location E. IMPRESSION: 1. Worsened right axillary and subpectoral lymphadenopathy, T4 lytic lesion, an d splenic masses, consistent metastatic disease.
[2023-08-17 12:59] LABS: Estimated Glomerular Filt Rate > 60
== END 2023-08-17 12:19 | disposition home or self-care (01) ==
LOC: ANHIMG 12:19
PROVIDERS: PCP Family Medicine; Visit Provider Internal Medicine Hematology & Oncology
DX: Z15.89 Genetic susceptibility to other disease (principal); R90.82 White matter disease, unspecified
CPT/HCPCS: 70553; 71260; 74177; A9577; Q9967

== ENCOUNTER 2023-12-31 10:22 | Outpatient (CLI) | payer MEDICARE, BC, SELFPAY ==
--- NOTE | ~2023-12-31 | CT_ITS ---
EXAMINATION: CT chest abdomen pelvis w con DATE: 12/31/2023 10:57 INDICATION: Malignant melanoma of right upper extremity. TECHNIQUE: Computed tomography (CT) of the chest, abdomen, and pelvis was performed with 100 mL Omnip aque 350 intravenous contrast. Automated exposure control and iterative reconstruction technique were employed. The dose-length product was 772.25 mGy-cm. COMPARISON: CT chest, abdomen, and pelvis 08/17/2023 FINDINGS: CHEST CT: There is mild scarring at the lung apices. There is mild atelectasis bilaterally. There are airspace opacities in the apical posterior segment left upper lobe and superior segment left lower lobe, likel y radiation pneumonitis. No pleural effusion. The heart size is normal. There are coronary artery valdo cifications. There are changes of coronary artery bypass grafting. No pericardial effusion. There are two enlarged right subpectoral lymph nodes measuring up to 2.7 x 1.6 cm, decreased from 5.8 x 5.4 cm . There are surgical clips in right breast in right axilla. There is moderate thoracic spondylosis. T here is a lytic lesion involving the left posterior elements at T4 with interval decrease in size of the soft tissue component. ABDOMEN/PELVIS CT: The liver is normal. There are changes of cholecystectomy. There is a 2.1 cm mass in the spleen witho ut change. There is a 2.9 cm mass in the spleen that previously measured 2.2 cm. The pancreas and adr enal glands are normal. There is cortical thinning of the kidneys. There are cysts in the kidneys flower suring up to 10 mm on the right. There is diverticulosis of the colon without evidence of diverticuli tis. There are no dilated loops of bowel. The appendix is not visualized. There is a small sliding hi atal hernia. There are no pathologically enlarged lymph nodes. There is no free intraperitoneal fluid . There is severe lumbar spondylosis. There are changes of anterior posterior fusion procedures at L4 -L5. IMPRESSION: 1. Right subpectoral lymphadenopathy, T4 lytic lesion, and splenic lesions with interval improvement, consistent with metastatic disease. Reviewed, dictated and finalized at location A. CTOR OF CULTURE
[2023-12-31 10:52] LABS: Estimated Glomerular Filt Rate 44
== END 2023-12-31 10:23 | disposition home or self-care (01) ==
PROVIDERS: PCP Family Medicine; Visit Provider Internal Medicine Hematology & Oncology
DX: C43.61 Malignant melanoma of right upper limb, including shoulder (principal)
CPT/HCPCS: 71260; 74177; Q9967

== ENCOUNTER 2024-03-28 10:24 | Outpatient (CLI) | payer MEDICARE, BC, SELFPAY ==
--- NOTE | ~2024-03-28 | CT_ITS ---
EXAMINATION: CT chest abdomen pelvis w con DATE: 03/28/2024 11:02 INDICATION: Malignant melanoma of right upper extremity. TECHNIQUE: Computed tomography (CT) of the chest, abdomen, and pelvis was performed with 100 mL Omnip aque 350 intravenous contrast. Automated exposure control and iterative reconstruction technique were employed. The dose-length product was 695.44 mGy-cm. COMPARISON: CT 12/31/2023 FINDINGS: CHEST CT: There is mild scarring at the lung apices. There are mild airspace and groundglass opacities in left upper lobe and superior segment left lower lobe, likely radiation pneumonitis. No pleural effusion. T he heart size is normal. There are coronary artery calcifications. There are changes of coronary zulma ry bypass grafting. There is a small sliding hiatal hernia. A right axial node measures 2.0 x 1.5 cm that previously measured 2.1 x 1.3 cm. A right subpectoral node measures 2.9 x 1.9 cm that previously measured 2.6 x 2.0 cm. There are surgical clips in right axilla. There is a lytic lesion of the left T4 posterior elements and left fourth rib. ABDOMEN/PELVIS CT: The liver is normal. There are changes of cholecystectomy. There are 2.9 cm and 0.8 cm masses in the spleen that previously measured 2.1 cm and 0.8 cm, respectively. The pancreas and adrenal glands are normal. There are cysts in the kidneys measuring up to 7 mm on the left. There is diverticulosis of t he colon without evidence of diverticulitis. There are no dilated loops of bowel. There are no pathol ogically enlarged lymph nodes. There is no free intraperitoneal fluid. There is severe lumbar spondyl osis. There are changes of anterior and posterior fusion procedures at L4-L5. IMPRESSION: 1. Right axillary and subpectoral lymphadenopathy and splenic lesions with worsening from 12/31/2023, consistent with metastatic disease. 2. Lytic lesion involving the left T4 posterior elements and left fourth rib, stable from 12/31/2023, consistent metastatic disease. Reviewed, dictated and finalized at location A. ING EQUIPMENT OPERATOR IMPRESSION: 1. Right axillary and subpectoral lymphadenopathy and splenic lesions with wors ening from 12/31/2023, consistent with metastatic disease. 2. Lytic lesion involving the left T4 posterior elements and left fourth rib, s table from 12/31/2023, consistent metastatic disease.
[2024-03-28 10:56] LABS: Estimated Glomerular Filt Rate 44
--- OUTSIDE RECORDS SUMMARY | 2024-03-28 13:31 | XMS_ITS | Clinical Summary ---
Author Organization [facility] Jessica Fernandez Address [address] [place] [address] Care Team Providers Care Operator Vacuum Name Role Phone Noe Barone MD Primary Care Provider [phone] Allergies Active Allergy Reactions Criticality Noted Date Comments Sulfa (Sulfonamide Antibiotics) Hives High 03/13 Medications metoprolol tartrate (LOPRESSOR) 25 mg tablet Take 1 Tablet by mouth 2 times daily. 2 Active amLODIPine (NORVASC) 5 mg tablet 2 Active aspirin (ECOTRIN EC) 81 mg Tablet, Delayed Release (E.C.) Take 81 mg by mouth daily. Active acetaminophen (TYLENOL) 500 mg tablet Take 500 mg by mouth every 6 hours as needed. Active hydrOXYzine HCL (ATARAX) 25 mg tablet Take 1 Tablet (25 mg) by mouth 3 times daily as needed for Itching. 30 Tablet 1 4 Active imatinib (Gleevec) 400 mg tabletIndicati ons:Malignant melanoma of right upper extremity (CMS/HCC) Take 1 Tablet (400 mg) by mouth daily with breakfast. 30 Tablet 6 5 Active imatinib (Gleevec) 400 mg tablet Take 1 Tablet (400 mg) by mouth daily with breakfast. 30 Tablet 6 02/23/2024 2:06 PM SENIOR PAINTER 5 Active potassium chloride (KLOR-CON M10) 10 mEq Extended Release tablet TAKE 1 TABLET TWICE A DAY 180 Tablet 3 5 Active potassium chloride (KLOR-CON M10) 10 mEq Extended Release tablet take 1 tablet twice a day 60 Tablet 11 4 03/02/19 25 Discontinued cephALEXin (KEFLEX) 500 mg capsule Take 1 Capsule (500 mg) by mouth 4 times daily for 10 days. 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 Encounters Date Type Department Care Team Description 03/21/2024 Orders Only [facility] Ch[address] [place] [address] Brian Herr MD Malignant melanoma of right upper extremity (CMS/HCC) 03/07/2024 Orders Only [facility] Babatunde [address] [place] [address] Brian Herr MD Malignant melanoma of right upper extremity (CMS/HCC) 03/02/2024 External Device Data [facility] ABSTRACTION Provider, Abstract 03/02/2024 External Device Data [facility] ABSTRACTION Provider, Abstract 03/02/2024 Refill [facility] Ch[address] [place] [address] Brian Herr MD 02/24/2024 11:30 AM SENIOR PAINTER Office Visit [facility] Babatunde [address] [place] [address] Brian Herr MD Malignant melanoma of right upper extremity (CMS/HCC) (Primary Dx) 02/22/2024 Refill [facility] Babatunde [address] [place] [address] Brian Herr MD 02/22/2024 Orders Only [facility] Babatunde [address] [place] [address] Brian Herr MD Malignant melanoma of right upper extremity (CMS/HCC) 02/17/2024 Specialty Pharmacy [facility] [address] [place] [phone] Jessica Lewis, PHARMACIST 02/17/2024 Specialty Pharmacy [facility] [address] [place] [address] [place] [address] Jessica Lewis, PHARMACIST Specialty Pharmacy Refill Coordination 02/17/2024 Refill [facility] - [place] [address] [place] [phone] Brian Herr MD Malignant melanoma of right upper extremity (CMS/HCC) (Primary Dx) 02/08/2024 Orders Only [facility] - [place] [address] [place] [phone] Brian Herr MD Malignant melanoma of right upper extremity (CMS/HCC) 01/25/2024 Orders Only [facility] - [place] [address] [place] [address] Brian Herr MD Malignant melanoma of right upper extremity (CMS/HCC) 01/18/2024 Specialty Pharmacy [facility] [address] [place] [address] [place] [address] Arcelia Holly PHARMACIST Specialty Pharmacy Refill Coordination 01/12/2024 Orders Only [facility] - [place] [address] [place] [id number] Brian Herr MD 01/11/2024 11:30 AM SENIOR PAINTER Office [facility] [place] Babatunde [address] [place] [address] Brian Herr MD Malignant melanoma of right upper extremity (CMS/HCC) 01/05/2024 Orders Only [facility] [place] Babatunde [address] [place] [address] Brian Herr MD 01/04/2024 Orders Only [facility] - [place] [address] [place] [address] Brian Herr MD 01/04/2024 Telephone [facility] [place] [address] [place] [phone] Results 01/01/2024 Orders Only [facility] [place] [address] [place] [phone] Brian Herr MD 12/28/2023 Orders Only [facility] [place] [address] [place] [phone] Brian Herr MD Malignant melanoma of right upper extremity (CMS/HCC) from Last 3 Months Family History Relation Name Status Comments Father Mother Sister 1 Alive Sister 2 Social History Tobacco Use Types Packs/Day Years Used Date Smoking Tobacco: Never Smokeless Tobacco: Never Tobacco Cessation:Counseling Given: Not Answered Comments Unknown Sex and Gender Information Value Date Recorded Sex Assigned at Female 11/19/2023 5:40 PM CDT Legal Sex Female 2:48 PM SENIOR PAINTER Gender Identity Female 11/19/2023 5:40 PM CDT Sexual Orientation Not on file Last Filed Vital Signs Vital Sign Reading Time Taken Comments Blood Pressure 140/80 02/24/2024 11:32 AM SENIOR PAINTER Pulse 80 02/24/2024 11:32 AM SENIOR PAINTER Temperature 35.8 C (96.4 F) 02/24/2024 11:32 AM SENIOR PAINTER Respiratory Rate 16 02/24/2024 11:32 AM SENIOR PAINTER Oxygen Saturation 98% 02/24/2024 11:32 AM SENIOR PAINTER Inhaled Oxygen Concentration - - Weight 78.9 kg (174 lb) 02/24/2024 11:32 AM SENIOR PAINTER Height 157.5 cm (5' 2 ) 04/03/2022 4:03 PM SENIOR PAINTER Body Mass Index 31.83 04/03/2022 4:03 PM SENIOR PAINTER Plan of Treatment Upcoming Encounters Date Type Department Care Team (Late st Contact Info) Description 04/06/2024 11:00 AM SENIOR PAINTER Office Visit [facility] [place] [address] [place] [address] Brian Herr MD [address] [facility] [address] [place] [address] Health Maintenance Due Date Last Done Comments DTAP/TDAP/TD VACCINES (1 - Tdap) 1964 PNEUMOCOCCAL VACCINE 65+ YEA RS (1 of 1 - PCV) 1996 ZOSTER VACCINE (1 of 2) 1996 RSV VACCINE (60+ or ) (1 - 1-dose 75+ series) 2021 INFLUENZA VACCINE (#1) 2023 3, 10/27/2019, 11/16/2018, Additional history exists OSTEOPOROSIS SCREENING Completed 04/09/2021 Procedures Procedure Name Priority Date/Time Associated Diagnosis Comments COMPREHENSIVE METABOLIC PANEL Routine 01/11/2024 1:34 PM SENIOR PAINTER BASIC METABOLIC PANEL Routine 01/11/2024 1:10 PM SENIOR PAINTER CREATININE Routine 12/31/2023 11:[address] CHEST ABDOMEN PELVIS W CONT Routine 12/31/2023 8:12 AM SENIOR PAINTER from Last 3 Months Results * COMPREHENSIVE METABOLIC PANEL (01/11/2024 1:34 PM SENIOR PAINTER) Blood us Brian Herr MD CHEMISTRY ORDERABLES Final Resu lt * BASIC METABOLIC PANEL (01/11/2024 1:10 PM SENIOR PAINTER) Blood us Brian Herr MD CHEMISTRY ORDERABLES Final Resu lt * CREATININE (12/31/2023 11:47 AM SENIOR PAINTER) Blood us Brian Herr MD CHEMISTRY ORDERABLES Final Resu lt * CT CHEST ABDOMEN PELVIS W CONT (12/31/2023 8:12 AM SENIOR PAINTER) Anatomical Region Laterality Modality Chest Other us Brian Herr MD CT ORDERABLES Final Result from Last 3 Months Insurance MEDICARE PART A AND B [employer] ACCESS/TRUE [employer] PPO MEDICARE PART A AND B [employer] SUPP RX [employer] Medicare Part D Care Teams Operator Vacuum Relationship Specialty Start Date End Date Noe Barone MD [address] [place] [phone] PCP - General Family Practice 04/03/22
--- OUTSIDE RECORDS SUMMARY | 2024-03-28 13:31 | XMS_ITS | Clinical Summary ---
Author Organization [facility] Address [address] [place] [id number] Care Team Providers Care Insurance Commissioner Name Role Phone Unavailable Primary Care Provider Unavailabl e Social History Tobacco Use Types Packs/Day Years Used Date Smoking Tobacco: Never Assessed Comments Unknown Sex and Gender Information Value Date Recorded Sex Assigned at Not on file Legal Sex Female 7:45 PM CDT Gender Identity Not on file Sexual Orientation Not on file Plan of Treatment Health Maintenance Due Date Last Done Comments Hepatitis C 1963 DTaP, Tdap and Td Vaccines ( 1 - Tdap) 1965 Zoster Vaccines (1 of 2) 1996 Dexa Scan (General) 07/28/2011 Pneumococcal Vaccine: 65+ Ye ars (1 of 1 - PCV) 07/28/2011 RSV Immunization or 60+ Years (1 - 1-dose 75+ series) 2021 COVID-19 Vaccine (2023-2 5 season) 2023 Influenza Adult (#1) 2023 Meningococcal B Vaccine Aged Out No l onger eligible based on patient's age to complete this topic Meningococcal Vaccine Aged Out No china alfredo eligible based on patient's age to complete this topic RSV Immunizations Under 20 Months Aged Out No longer eligible based on patient's age to complete this topic
--- OUTSIDE RECORDS SUMMARY | 2024-03-28 13:31 | XMS_ITS | Referral Summary ---
Author Organization [facility] [address] [facility] [address] Address [address] [place] [address] Care Team Providers Care Branch Coordinator Name Role Phone Noe Barone MD Primary Care Provider Encounters Date Type Department Care Team Description 03/18/2024 3:00 PM SUPERINTENDENT STEVEDORING Office Visit [facility] Cardiology [address] [facility] [address] [place] [address] Chelsea Maciel NP Coronary artery disease involving lower [place] coronary artery of [place] heart without angina pectoris (Primary Dx); Hx of CABG; Multiple-type hyperlipidemia; Essential hypertension from Last 3 Months Allergies Active Allergy Reactions Criticality Noted Date Comments Lisinopril Cough Low 09/17/2020 Scratchy cough Pollen Extracts Unknown Low Sulfa (Sulfonamide Antibiotics) Hives Medium Medications aspirin 81 mg tablet take 1 tablet by oral route every day 0 0 5 Active potassium chloride ER 10 mEq CR tablet Take 1 tablet/capsule (10 mEq total) by mouth 2 (two) times a day 4 Active losartan-hydroCHL OROthiazide (HYZAAR) 50-12.5 mg per tabletIndications :Essential hypertension TAKE 1 TABLET DAILY 90 tablet 3 4 Active imatinib (GLEEVEC) 400 mg tablet Take 1 tablet (400 mg total) by mouth daily 4 Active amLODIPine (NORVASC) 5 mg tablet TAKE 1 TABLET DAILY DIRECTED 90 tablet 3 4 Active metoprolol tartrate (LOPRESSOR) 25 mg immediate release tablet TAKE 1 TABLET TWICE A DAY 180 tablet 3 4 Active atorvastatin (LIPITOR) 40 mg tablet TAKE 1 TABLET DAILY DIRECTED 90 tablet 3 4 Active ferrous sulfate 325 mg (65 mg of elemental iron) tabletIndications :Iron Deficiency Anemia Take 1 tablet (325 mg total) by mouth daily with breakfast Active cyanocobalamin (Vitamin B-12) 100 mcg tabletIndications :Prevention of Vitamin B12 Deficiency Take 1 tablet (100 mcg total) by mouth daily Active Active Problems Problem Noted Date Diagnosed Date Malignant melanoma of upper limb, right 09/10/19 Precordial chest pain 08/17/2023 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 Allergy to AKIRA inhibitors 09/17/2020 Cough 09/26/2019 Atherosclerosis of both carotid arteries 020 Hx of CABG 08/02/2016 Trigeminal neuralgia 12/13/2015 Overview (05/15/2016): Trigeminal neuralgia Numbness 08/27/2015 Multiple-type hyperlipidemia 07/20/2015 Overview (05/15/2016): Mixed hyperlipidemia Chronic kidney disease, stage III (moderate) 02/2014 Overview (05/15/2016): Chronic kidney disease, stage 3 Benign essential hypertension 02/28/2014 Overview (05/15/2016): Benign essential hypertension Coronary artery disease invo lving lower [place] coronary artery of [place] heart without angina pectoris 02/28/2014 Overview (05/15/2016): Coronary arteriosclerosis in [place] artery Pure hypercholesterolemia 02/28/2014 Overview (05/15/2016): Pure hypercholesterolemia Essential hypertension 11/11/2011 Overview (05/16/2016): Hypertension Resolved Problems Problem Noted Date Diagnosed Date Resolved Date Right carotid bruit 08/10/2017 09/26/19 20 Hyperlipidemia 11/11/2011 09/30/2021 Overview (05/15/2016): Hyperlipidemia Atherosclerosis of coronary artery 11/11/2011 09/17/2020 Overview (05/16/2016): Coronary artery disease Immunizations Immunization Administration Dates Next Due Influenza, Quad, Adjuvantate d, Intramuscular 10/27/2019 Influenza, Quadrivalent, Spl it, Preservative Free, Intramuscular 11/16/2018 Influenza, Trivalent, Adjuva nted, Intramuscular 11/12/2017,11/11/2017 Influenza, Trivalent, High D ose, Split, Preservative Free, Intramuscular 11/11/2016,11/13/2015,11/22/2013 Influenza, Trivalent, IM (MDV) 11/23/2012,2011 Social History Tobacco Use Types Packs/Day Years Used Date Smoking Tobacco: Never Smokeless Tobacco: Never Tobacco Cessation:Counseling Given: Not Answered Alcohol Use Standard Drinks/Week Comments Yes 0 (1 standard drink = 0.6 oz pur e alcohol) Comments Unknown Sex and Gender Information Value Date Recorded Sex Assigned at Not on file Legal Sex Female 10:03 AM SUPERINTENDENT STEVEDORING Gender Identity Not on file Sexual Orientation Not on file Last Filed Vital Signs Vital Sign Reading Time Taken Comments Blood Pressure 130/62 03/18/2024 2:48 PM SUPERINTENDENT STEVEDORING Pulse 65 03/18/2024 2:48 PM SUPERINTENDENT STEVEDORING Temperature 36.3 C (97.3 F) 08/03/2023 9:21 AM CDT Respiratory Rate - - Oxygen Saturation 98% 03/18/2024 2:48 PM SUPERINTENDENT STEVEDORING Inhaled Oxygen Concentration - - Weight 79.8 kg (176 lb) 03/18/2024 2:48 PM SUPERINTENDENT STEVEDORING Height 157.5 cm (5' 2 ) 03/18/2024 2:48 PM SUPERINTENDENT STEVEDORING Body Mass Index 32.19 03/18/2024 2:48 PM SUPERINTENDENT STEVEDORING Plan of Treatment Not on file Procedures Procedure Name Priority Date/Time Associated Diagnosis Comments POCT LIPID PANEL Routine 03/18/2024 3:32 PM SUPERINTENDENT STEVEDORING Coronary artery disease involving lower [place] coronary artery of [place] heart without angina pectoris from Last 3 Months Results * POCT lipid panel (03/18/2024 3:32 PM SUPERINTENDENT STEVEDORING) Cholesterol, POC 111 mg/dL Comment:Glucose 103 HDL, POC 58 mg/dL Triglycerides, POC 75 mg/dL LDL Cholesterol POC 38 mg/dL Chol/HDL Ratio, POC 0.7 Non-HDL Cholesterol, POC 53 mg/dL Cholesterol Total, POC 111 mg/dL Capillary blood 03/18/2024 3 :32 PM SUPERINTENDENT STEVEDORING Chelsea Maciel NP POINT OF CARE TEST ORDERA BLES Final Result from Last 3 Months Insurance MEDICARE [facility] MEDICARE BLUE TRADITIONAL OOS BLUE TRADITIONAL OOS MEDICARE Care Teams Branch Coordinator Relationship Specialty Start Date End Date Noe Barone MD PCP - General 11/13/09
--- OUTSIDE RECORDS SUMMARY | 2024-03-28 13:31 | XMS_ITS | Patient Health Summary ---
Author Organization [facility] Address [address] [place] [address] Care Team Providers Care Stone And Plate Preparer Apprentice Name Role Phone Noe Barone MD Primary Care Provider [phone] Note from [facility],non-owned Affiliates and Associated Physician Practices is amultiple site organization consisting of ambulatory clinics and hospital sitesin [place], [place], [place] and [place]. This disclosure is being madepursuant to the Care Everywhere program and may not contain all information available regarding this patient. Last updated 17.[facility] Allergies * Sulfa Drugs Medications * Be aware that medications may not be up to date on this document. Alwaysverify current medications with the patient. * amLODIPine (NORVASC) 5 MG tablet(Started 08/15/2015) Take 5 mg by mouth once daily * atorvastatin (LIPITOR) 40 MG tablet(Started 07/09/2015) Take 40 mg by mouth once daily * fenofibrate (LOFIBRA) 54 MG tablet(Started 07/23/2015) Take 54 mg by mouth once daily * lisinopril (PRINIVIL; ZESTRIL) 20 MG tablet(Started 07/30/2015) Take 20 mg by mouth once daily * metoprolol tartrate (LOPRESSOR) 25 MG tablet(Started 07/25/2015) Take 25 mg by mouth 2 times daily * PAZEO 0.7 %(Started 06/25/2015) Instill 1 Drop into both eyes once daily * aspirin (ASPIRIN) 81 MG tablet Take 81 mg by mouth once daily * Multiple Vitamins-Minerals (MULTIPLE VITAMINS/WOMENS) TABS Take 1 Tab by mouth once daily * acetaminophen (TYLENOL) 500 MG tablet Take 500 mg by mouth every 4 hours as needed for Fever or Pain Maximum allowable Acetaminophen amount = 4 Grams (4000 mg) / 24 hours. Active Problems Problem Noted Date Diagnosed Date Sensory loss 08/27/2015 Numbness 08/27/2015 Social History Tobacco Use Types Packs/Day Years Used Date Smoking Tobacco: Never Smokeless Tobacco: Never Alcohol Use Standard Drinks/Week Comments No 0 (1 standard drink = 0.6 oz pur e alcohol) Sex and Gender Information Value Date Recorded Sex Assigned at Not on file Gender Identity Not on file Sexual Orientation Not on file Last Filed Vital Signs Vital Sign Reading Time Taken Comments Blood Pressure 150/90 08/27/2015 1:00 PM CDT Pulse 72 08/27/2015 1:00 PM CDT Temperature - - Respiratory Rate 14 08/27/2015 1:00 PM CDT Oxygen Saturation - - Inhaled Oxygen Concentration - - Weight 81.6 kg (180 lb) 08/27/2015 1:00 PM CDT Height 154.9 cm (5' 1 ) 08/27/2015 1:00 PM CDT Body Mass Index 34.01 08/27/2015 1:00 PM CDT Procedures * FLOW CYTOMETRY TISSUE PANEL(Performed 02/26/2023) Performed for Malignant melanoma of skin, unspecified ([facility]) * DERMATOPATHOLOGY(Performed 01/28/2017) * PROTEIN ELECTROPHORESIS BLOOD(Performed 08/27/2015) Performed for Numbness, Sensory loss * IMMUNOFIXATION BLOOD(Performed 08/27/2015) Performed for Numbness, Sensory loss * VITAMIN B12 FOLATE PANEL(Performed 08/27/2015) Performed for Numbness, Sensory loss * TSH(Performed 08/27/2015) Performed for Numbness, Sensory loss * C-REACTIVE PROTEIN(Performed 08/27/2015) Performed for Numbness, Sensory loss * ERYTHROCYTE SEDIMENTATION RATE(Performed 08/27/2015) Performed for Numbness, Sensory loss * IMAGING/RADIOLOGY/XRAY RESULTS ORDER(Performed 12/29/2014) * IMAGING/RADIOLOGY/XRAY RESULTS ORDER(Performed 12/29/2014) Results * FLOW CYTOMETRY TISSUE PANEL (02/26/2023 10:50 AM BUSHING PRESS OPERATOR) Case Report Flow Cytometry Case: [id number] Authorizing Provider: Zeus Carlson MD Collected: 02/26/2023 10:50 AM Ordering Location: [facility] Pathology Lab Received: 02/26/2023 02:12 PM Pathologist: Antoinette Diaz MD Specimen: Axillary Lymph Node, RIGHT 02/27/2023 9:10 AM [facility] Final Diagnosis Axillary lymph node, flow cytometric immunophenotyping : - Inadequate hematolymphoid cells for analysis - Malignant cells identified on cytospin review (see comment) Comment: Malignant cells are identified on the cytospin preparation of the flow cytometry specimen. The cells are very large and pleomorphic and do not appear hematopoietic in nature. Given the patient's history of melanoma, the cells are suspicious for metastasis of such. However, correlation with histologic review of the lymph node is necessary for definitive classification of the tumor. 02/27/2023 9:10 AM [facility] Flow Cytometry Interpretation Insufficient hematolymphoid cells for evaluation. A cytospin prepared from the flow cytometry specimen has been reviewed for manufacturing quality manager purposes. 02/27/2023 9:10 AM [facility] Flow Cytometry Results Too few hematopoietic cells for flow cytometric analysis. 02/27/2023 9:10 AM [facility] Reason for test Malignant melanoma of skin, unspecified ([facility]-HCC) 02/27/2023 9:10 AM [facility] Client Specimen ID # [id number] 02/27/2023 9:10 AM [facility] Pathologist Location at [facility] 02/27/2023 9:10 AM [facility] Disclaimer Test performed at [facility], [address] [place] [address], [id number]. *The established laboratory minimum viability is 70%. Values below the minimum may result in the failure to find an abnormal population of cells. This test was developed and its performance characteristics determined by the Flow Cytometry Laboratory. It has not been cleared by the [place] Food and Drug Administration (FDA). The FDA has determined that such clearance or approval is not necessary. This test is used for clinical purposes. It should not be regarded as investigational or for research. This laboratory is regulated under the Clinical Laboratory Improvement Amendments of 1998 (CLIA) as a qualified to perform high complexity clinical testing. 02/27/2023 9:10 AM [facility] Embedded Images 4 9:10 AM [facility] Pathology/Cytolo gy AXILLARY LYMPH NODE STRUCTURE / Unknown 02/26/2023 10:50 AM BUSHING PRESS OPERATOR 02/26/2023 2:12 PM [facility] Sujit Carlson MD LAB - PATHO LOGY/CYTOLOGY ORDERABLES Performing Organization Address [facility] Co de Phone Number [facility] [address] [phone] * PATHOLOGY TISSUE FOR DERMATOLOGY (01/28/2017 12:00 AM [facility]) Result CASE: [id number] PATIENT: AMPARO ALVAREZ PATHOLOGIC DIAGNOSIS: Left posterior vertex scalp: HYBRID CYST (EPIDERMOID CYST AND TRICHILEMMAL (PILAR) CYST WITH CALCIFICATION); NOT PRESENT AT SAMPLED MARGIN CLINICAL DATA: R/O cyst vs other neoplasm. Check margins. GROSS DESCRIPTION: Received is one formalin filled container labeled with the patients name and designated left posterior vertex scalp. The specimen consists of a punch biopsy measuring [id number]. The margin is inked green. The specimen is bisected and submitted in 1 cassette. Jar 0. MICROSCOPIC DESCRIPTION: Within the dermis, there is a space focally lined by epithelium that resembles normal epidermis and the infundibular portion of the hair follicle and in other areas is lined by stratified squamous epithelium that shows trichilemmal keratinization (no granular layer). There is homogeneous pink keratin and aggregates of homogenous amorphous basophilic material consistent with calcium within the cyst. This lesion is not present at the sampled margin of the specimen. Electronically signed out by Betty Shelton M.D., PhD. 01/30/2017 12:54:22PM [facility] Comment: Performed at: Dermatopathology Laboratory [facility] - Department of Dermatology [address] [place] [address], 5th [place] [address] Phone number: [phone] FAX: [phone] 01/28/2017 01/29/2017 Malik Charlton MD LAB - PATHOLOGY/CYTO LOGY ORDERABLES Performing Organization Address [facility] Co de Phone Number [facility] [address] [facility]th [place] [address], [facility] [phone] * (ABNORMAL) IMMUNOFIXATION (08/27/2015 2:34 PM CDT) Immunofixation Result [facility] INSURANCE BILL Comment:No monoclonality det ected. IgG Quantitative 1,166 700 - 1,600 mg/dL [facility] INSURANCE BILL IgA Quantitative 542(H) 87 - 352 mg/dL [facility] INSURANCE BILL IgM Quantitative 89 26 - 217 mg/dL [facility] INSURANCE BILL Blood specimen (specimen) BLOOD SPECIMEN / Unknown 08/27/2015 2:34 PM CDT 08/27/2015 7:04 PM CDT Narrative Resulting Agency Comment [address] [id number] Juju Yeung MD LAB - CHEMISTRY MARK MATHEW Performing Organization Address City/[facility]/ZIP Co de Phone Number [facility] INSURANCE BILL [address] [place] [address] * C-REACTIVE PROTEIN (08/27/2015 2:34 PM CDT) C-Reactive Protein <0.29 <0.30 mg/dL [facility] INSURANCE BILL Blood specimen (specimen) BLOOD SPECIMEN / Unknown 08/27/2015 2:34 PM CDT 08/27/2015 7:04 PM CDT Narrative Resulting Agency Comment [facility] [address] [place] [id number] Juju Yeung MD LAB - CHEMISTRY MARK MATHEW [facility] INSURANCE BILL [address] [place] [address] * SED RATE WESTERGREN (08/27/2015 2:34 PM CDT) Erythrocyte Sedimentation Rate Westergren 19 0 - 30 mm/hr [facility] INSURANCE BILL Blood specimen (specimen) BLOOD SPECIMEN / Unknown 08/27/2015 2:34 PM CDT 08/27/2015 7:04 PM CDT Narrative Resulting Agency Comment [facility] [address] [place] [id number] Juju Yeung MD LAB - HEMATOLOGY SHAWN PRINGLE [facility] INSURANCE BILL [address] [place] [address] * (ABNORMAL) VITAMIN B12 FOLATE PANEL (08/27/2015 2:34 PM CDT) Pathologist [facility] Vitamin B12 644 211 - 911 pg/mL [facility] INSURANCE BILL Folate 59.0(H) 3.1 - 17.5 ng/mL [facility] INSURANCE BILL Blood specimen (specimen) BLOOD SPECIMEN / Unknown 08/27/2015 2:34 PM CDT 08/27/2015 7:04 PM CDT Narrative Resulting Agency Comment [facility] [address] [place] [id number] Juju Yeung MD LAB - CHEMISTRY MARK MATHEW Performing Organization Address [facility] Co de Phone Number [facility] INSURANCE BILL [address] [place] [address] * TSH (08/27/2015 2:34 PM CDT) Pathologist [facility] TSH 1.09 0.358 - 3.740 uIU/mL [facility] INSURANCE BILL Blood specimen (specimen) BLOOD SPECIMEN / Unknown 08/27/2015 2:34 PM CDT 08/27/2015 7:04 PM CDT Narrative Resulting Agency Comment [facility] [address] [place] [id number] Juju Yeung MD LAB - CHEMISTRY MARK MATHEW Performing Organization Address City/[facility]/ZIP Co de Phone Number [facility] INSURANCE BILL [address] [place] [address] * (ABNORMAL) PROTEIN ELECTROPHORESIS BLOOD (08/27/2015 2:34 PM CDT) Pathologist [facility] Protein Total 7.9 6.0 - 8.5 g/dL [facility] INSURANCE BILL Albumin 3.9 2.9 - 4.4 g/dL [facility] INSURANCE BILL Alpha-1 Globulin 0.3 0.0 - 0.4 g/dL [facility] INSURANCE BILL Iacsf-[id number] 1.0 0.4 - 1.0 g/dL [facility] INSURANCE BILL Beta-Globulin 1.6(H) 0.7 - 1.3 g/dL [facility] INSURANCE BILL Gamma Globulin 1.2 0.4 - 1.8 g/dL [facility] INSURANCE BILL M-Mio Not Observed Not Observed g/dL [facility] INSURANCE BILL Globulin Total 4.0(H) 2.2 - 3.9 g/dL [facility] INSURANCE BILL Albumin/Globulin Ratio 1.0 0.7 - 1.7 [facility] INSURANCE BILL Please Note [facility] INSURANCE BILL Comment: Protein electrophoresis scan will follow via computer, mail, or commuter train operator delivery. P E Interpretation, S [facility] INSURANCE BILL Comment: The SPE pattern appears essentially unremarkable. Evidence of monoclonal protein is not apparent. Blood specimen (specimen) BLOOD SPECIMEN / Unknown 08/27/2015 2:34 PM CDT 08/27/2015 7:04 PM CDT Narrative Resulting Agency Comment [facility] [address] [facility] [id number] Juju Yeung MD LAB - CHEMISTRY MARK MATHEW [facility] Organization Address City/State/ZIP Co de Phone Number [facility] INSURANCE BILL [address] [place] [address] * IMAGING/RADIOLOGY/XRAY RESULTS ORDER (12/29/2014) Only the most recent of2 resultswithin the time period is included. Anatomical Region Laterality Modality Other Historical Provider IMAGING Care Teams Stone And Plate Preparer Apprentice Relationship Specialty Start Date End Date Noe Barone MD [address] [place] [address] PCP - General 03/13/21
--- OUTSIDE RECORDS SUMMARY | 2024-03-28 13:31 | XMS_ITS | Clinical Summary ---
Author Organization [facility] Address [address] [place] [address] Phone Care Team Providers Care Bone Plant Supervisor Name Role Phone Unavailable Primary Care Provider Unavailabl e Medications Medication Sig Dispensed Refills Start Date End Date Status amLODIPine (NORVASC) 5 MG tablet 12/01/2014 Active lisinopril (PRINIVIL,ZESTRIL) 20 MG tablet 11/19/2014 Active metoprolol tartrate (LOPRESSOR) 25 MG tablet 1 bid 11/19/2014 Active fenofibrate (TRICOR) 54 MG tablet 11/19/2014 Active atorvastatin (LIPITOR) 40 MG tablet 11/19/2014 Active aspirin 325 MG EC tablet 11/19/2014 Active Active Problems Problem Noted Date Diagnosed Date Chronic kidney disease, stage 3 (moderate) 11/20 Essential (primary) hypertension 11/20/2014 Family History Medical History Relation Comments Heart disease Father Malignant neoplastic disease Father Heart disease Mother Kidney disease Neg Hx Kidney stone Neg Hx Relation Status Comments Father Mother Social History Tobacco Use Types Packs/Day Years Used Date Smoking Tobacco: Never Assessed Sex and Gender Information Value Date Recorded Sex Assigned at Not on file Gender Identity Not on file Sexual Orientation Not on file Last Filed Vital Signs Vital Sign Reading Time Taken Comments Blood Pressure 142/70 11/20/2014 12:01 AM CDT Pulse 60 11/20/2014 12:01 AM CDT Temperature 36.7 C (98 F) 11/20/2014 12:01 AM CDT Respiratory Rate - - Oxygen Saturation - - Inhaled Oxygen Concentration - - Weight 82.6 kg (182 lb) 11/20/2014 12:01 AM CDT Height 154.9 cm (5' 1 ) 11/20/2014 12:01 AM CDT Body Mass Index 34.39 11/20/2014 12:01 AM CDT Plan of Treatment Not on file
--- OUTSIDE RECORDS SUMMARY | 2024-03-28 13:31 | XMS_ITS | Referral Summary ---
Author Organization [facility] [employer] Address [address] [facility] [place] [address] Care Team Providers Care Blood Bank Calendar Control Clerk Name Role Phone Noe Barone MD Primary Care Provider [phone] Source Comments [facility],non-cass medical center Affiliates and Associated Physician Practices is amultiple site organization consisting of ambulatory clinics and hospital sitesin [place], [place], [place] and [place]. This disclosure is being madepursuant to the Care Everywhere program and may not contain all information available regarding this patient. Last updated 17.[facility] Allergies Active Allergy Reactions Criticality Noted Date Comments Sulfa Drugs 08/27/2015 Medications * Be aware that medications may not be up to date on this document. Alwaysverify current medications with the patient. Medication Sig Dispensed Refills Start Date End Date Status amLODIPine (NORVASC) 5 MG tabletIndications:N umbness,Sensory loss Take 5 mg by mouth once daily 08/15/2015 Active atorvastatin (LIPITOR) 40 MG tabletIndications:N umbness,Sensory loss Take 40 mg by mouth once daily 07/09/2015 Active fenofibrate (LOFIBRA) 54 MG tabletIndications:N umbness,Sensory loss Take 54 mg by mouth once daily 07/23/2015 Active lisinopril (PRINIVIL; ZESTRIL) 20 MG tabletIndications:N umbness,Sensory loss Take 20 mg by mouth once daily 07/30/2015 Active metoprolol tartrate (LOPRESSOR) 25 MG tabletIndications:N umbness,Sensory loss Take 25 mg by mouth 2 times daily 07/25/2015 Active PAZEO 0.7 %Indications:Numbne ss,Sensory loss Instill 1 Drop into both eyes once daily 06/25/2015 Active aspirin (ASPIRIN) 81 MG tabletIndications:N umbness,Sensory loss Take 81 mg by mouth once daily Active Multiple Vitamins-Minerals (MULTIPLE VITAMINS/WOMENS) TABSIndications:Num bness,Sensory loss Take 1 Tab by mouth once daily Active acetaminophen (TYLENOL) 500 MG tabletIndications:N umbness,Sensory loss Take 500 mg by mouth every 4 hours as needed for Fever or Pain Maximum allowable Acetaminophen amount = 4 Grams (4000 mg) / 24 hours. Active Active Problems Problem Noted Date Diagnosed [...] Mass Index 34.01 08/27/2015 1:00 PM CDT Plan of Treatment Not on file Care Teams Blood Bank Calendar Control Clerk Relationship Specialty Start Date End Date Noe Barone MD [address] [place] [address] PCP - General 03/13/21
--- OUTSIDE RECORDS SUMMARY | 2024-03-28 13:31 | XMS_ITS | Clinical Summary ---
Author Organization [facility] [employer] Address [address] [place] [address] Care Team Providers Care Precision Dyer Name Role Phone Noe Barone MD Primary Care Provider [phone] Source Comments [facility],non-[facility] hospital center Affiliates and Associated Physician Practices is amultiple site organization consisting of ambulatory clinics and hospital sitesin [place], [place], [place] and [place]. This disclosure is being madepursuant to the Care Everywhere program and may not contain all information available regarding this patient. Last updated 17.[facility] Allergies Active Allergy Reactions Criticality Noted Date [...] Diagnosed Date Sensory loss 08/27/2015 Numbness 08/27/2015 Family History Medical History Relation Name Comments Cancer Father throat/mouth Hypertension Father Cancer Mother breast Hypertension Mother Stroke Mother Cancer Sister myeloid leukemi a Hypertension Sister Relation Name Status Comments Father Mother Sister Social History Tobacco Use Types Packs/Day Years [...] 08/27/2015 1:00 PM CDT Plan of Treatment Health Maintenance Due Date Last Done Comments BONE DENSITY TESTING 1945 MEDICARE AWV 12 MONTHS 1945 COVID-19 VACCINE (#1) 07/28/1951 HEPATITIS C SCREENING 07/22/1964 DTAP/TDAP/TD VACCINES (1 - Tdap) 1965 PNEUMOCOCCAL VACCINE 50+ (1 of 2 - PCV) 1965 ZOSTER VACCINE (1 of 2) 1965 Respiratory Syncytial Virus (RSV) Vaccine Pt: or over 60 yrs (1 - 1-dose 75+ series) 2021 INFLUENZA VACCINE (#1) 2023 DEPRESSION SCREENING 02/10/2024 HEPATITIS B VACCINE Aged Out No longe r eligible based on patient's age to complete this topic HIB VACCINE Aged Out No longer eligi ble based on patient's age to complete this topic HPV VACCINE Aged Out No longer eligi ble based on patient's age to complete this topic MENINGOCOCCAL (Group B) VACCINE Aged Out No longer eligible based on patient's age to complete this topic MENINGOCOCCAL VACCINE Aged Out No china alfredo eligible based on patient's age to complete this topic Care Teams Precision Dyer Relationship Specialty Start Date End Date Noe Barone MD [address] [place] [address] PCP - General 03/13/21
--- OUTSIDE RECORDS SUMMARY | 2024-03-28 13:31 | XMS_ITS | Clinical Summary ---
Author Organization [facility] [address] Address [address] [place] [address] Care Team Providers Care Director Of Aviation Name Role Phone Neo Barone MD Primary Care Provider [phone] Allergies Active Allergy Reactions Criticality Noted Date [...] essential hypertension Coronary artery disease invo lving tetlin coronary artery of tetlin heart without angina pectoris 02/28/2014 Overview (05/15/2016): Coronary arteriosclerosis in tetlin artery Pure hypercholesterolemia 02/28/2014 Overview (05/15/2016): Pure hypercholesterolemia Essential hypertension 11/11/2011 Overview (05/16/2016): Hypertension Resolved Problems Problem Noted Date Diagnosed Date Resolved Date Right carotid bruit 08/10/2017 09/26/19 20 Hyperlipidemia 11/11/2011 09/30/2021 Overview (05/15/2016): Hyperlipidemia Atherosclerosis of coronary artery 11/11/2011 09/17/2020 Overview (05/16/2016): Coronary artery disease Encounters Date Type Department Care Team Description 03/18/2024 3:00 PM BRIDGE SAW OPERATOR Office Visit [facility] Cardiology [address] [place] [address] Chelsea Maciel NP Coronary artery disease involving tetlin coronary artery of tetlin heart without angina pectoris (Primary Dx); Hx of CABG; Multiple-type hyperlipidemia; Essential hypertension from Last 3 Months Immunizations Immunization Administration Dates Next Due Influenza, Quad, Adjuvantate d, Intramuscular 10/27/2019 Influenza, Quadrivalent, Spl it, Preservative Free, Intramuscular 11/16/2018 Influenza, Trivalent, Adjuva nted, Intramuscular 11/12/2017,11/11/2017 Influenza, Trivalent, High D ose, Split, Preservative Free, Intramuscular 11/11/2016,11/13/2015,11/22/2013 Influenza, Trivalent, IM (MDV) 11/23/2012,2011 Surgical History Surgery Date Site/Laterality Comments OTHER SURGICAL HISTORY : CORONARY ARTERY BYPASS GRAFT 2010 Coronary Artery Bypass Graft CORONARY ARTERY BYPASS GRAFT 2009 Coronary Artery Bypass Graft OTHER SURGICAL HISTORY hysterectomy, cinthya, back surgery Medical History Medical History Date Comments Hypertension 2009 Hypertension Cardiovascular disease 2009 Coronary Artery Disease Chronic coronary artery disease 2009 Coronary Artery Disease Hx Other Medical HTN, HLD, endom etrial CA (few cells) and endometri Hypercholesterolemia High choles terol Family History Medical History Relation Name Comments Coronary artery disease Father 2 Jose nary Artery Disease; Breast cancer Mother 2 Cancer, breast ; Valvular heart disease Mother 2 Valvu lar Heart Disease; Other Other Family history of Cancer, throat; Other Sister AVR, CABG 5; Relation Name Status Comments Father 1 Alive Father 2 Mother 1 Alive Mother 2 Other Sister Social History Tobacco Use Types Packs/Day Years Used Date Smoking Tobacco: Never Smokeless Tobacco: Never Tobacco Cessation:Counseling Given: Not Answered Alcohol Use Standard Drinks/Week Comments Yes 0 (1 standard drink = 0.6 oz pur e alcohol) Comments Unknown Sex and Gender Information Value Date Recorded Sex Assigned at Not on file Legal Sex Female 10:03 AM BRIDGE SAW OPERATOR Gender Identity Not on file Sexual Orientation Not on file Obstetrics History Last Filed Vital Signs Vital Sign Reading Time Taken Comments Blood Pressure 130/62 03/18/2024 2:48 PM BRIDGE SAW OPERATOR Pulse 65 03/18/2024 2:48 PM BRIDGE SAW OPERATOR Temperature 36.3 C (97.3 F) 08/03/2023 9:21 AM CDT Respiratory Rate - - Oxygen Saturation 98% 03/18/2024 2:48 PM BRIDGE SAW OPERATOR Inhaled Oxygen Concentration - - Weight 79.8 kg (176 lb) 03/18/2024 2:48 PM BRIDGE SAW OPERATOR Height 157.5 cm (5' 2 ) 03/18/2024 2:48 PM BRIDGE SAW OPERATOR Body Mass Index 32.19 03/18/2024 2:48 PM BRIDGE SAW OPERATOR Plan of Treatment Health Maintenance Due Date Last Done Comments Depression Screening 1946 Fall Risk Assessment 1945 Hepatitis C Screening 1945 Osteoporosis Screening-Bone Density Scan 1946 DTaP/Tdap/Td Vaccine (1 - Tdap) 1957 Hepatitis B Screening 1964 Pneumococcal vaccine 65+ (1 of 2 - PCV) 1965 Zoster Vaccine (1 of 2) 1965 Well Visit 65+ 07/28/2011 Influenza Vaccine (#1) 2023 0, 11/16/2018, 11/12/2017, Additional history exists Procedures Procedure Name Priority Date/Time Associated Diagnosis Comments POCT LIPID PANEL Routine 03/18/2024 3:32 PM BRIDGE SAW OPERATOR Coronary artery disease involving tetlin coronary artery of tetlin heart without angina pectoris from Last 3 Months Results * POCT lipid panel (03/18/2024 3:32 PM BRIDGE SAW OPERATOR) Cholesterol, POC 111 mg/dL Comment:Glucose 103 HDL, POC 58 mg/dL Triglycerides, POC 75 mg/dL LDL Cholesterol POC 38 mg/dL Chol/HDL Ratio, POC 0.7 Non-HDL Cholesterol, POC 53 mg/dL Cholesterol Total, POC 111 mg/dL Capillary blood 03/18/2024 3 :32 PM BRIDGE SAW OPERATOR Chelsea Maciel NP POINT OF CARE TEST ORDERA BLES Final Result from Last 3 Months Insurance MEDICARE BLUE TRADITIONAL OOS MEDICARE BLUE TRADITIONAL OOS REVERE TRADITIONAL OOS [facility] Address: [address] [place] [address] MEDICARE Care Teams Director Of Aviation Relationship Specialty Start Date End Date Noe Barone MD PCP - General 11/13/09
--- OUTSIDE RECORDS SUMMARY | 2024-03-28 13:31 | XMS_ITS | Encounter Summary ---
Author Organization [facility] Address [address] [place] [address] Care Team Providers Care Ip Network Architect Name Role Phone Noe Barone MD Primary Care Provider [phone] Encounter Details Date Type Department Care Team (Late st Contact Info) Description 02/26/2023 Lab Requisition [facility] - Pathology Lab [address] [place] [id number] Sujit Carlson MD [address] [place] [address] Malignant melanoma of skin, unspecified (HCC) Social History Tobacco Use Types Packs/Day Years Used Date Smoking Tobacco: Never Smokeless Tobacco: Never Alcohol Use Standard Drinks/Week Comments No 0 (1 standard drink = 0.6 oz pur e alcohol) Sex and Gender Information Value Date Recorded Sex Assigned at Not on file Gender Identity Not on file Sexual Orientation Not on file documented as of this encounter Plan of Treatment Not on file documented as of this encounter Procedures Procedure Name Priority Date/Time Associated Diagnosis Comments FLOW CYTOMETRY TISSUE PANEL Routine 02/26/2023 10:50 AM PRESS MANAGER Malignant melanoma of skin, unspecified (CMS-HCC) documented in this encounter Results * FLOW CYTOMETRY TISSUE PANEL (02/26/2023 10:50 AM PRESS MANAGER) Case Report Flow Cytometry Case: [id number] Authorizing Provider: Zeus Carlson MD Collected: 02/26/2023 10:50 AM Ordering Location: [facility]ology Lab Received: 02/26/2023 02:12 PM Pathologist: Antoinette Diaz MD Specimen: Axillary Lymph Node, RIGHT 02/27/2023 9:10 AM [facility] Final Diagnosis Axillary lymph node, [...] classification of the tumor. 02/27/2023 9:10 AM [facility] Flow Cytometry Interpretation Insufficient hematolymphoid cells for evaluation. A cytospin prepared from the flow cytometry specimen has been reviewed for quality nurse purposes. 02/27/2023 9:10 AM [facility] Flow Cytometry Results Too few hematopoietic cells for flow cytometric analysis. 02/27/2023 9:10 AM [facility] Reason for test Malignant melanoma of skin, unspecified ([facility]) 02/27/2023 9:10 AM [facility] Client Specimen ID # [id number] 02/27/2023 9:10 AM [facility] Pathologist Location at [facility] 02/27/2023 9:10 AM [facility] Disclaimer Test performed at [facility], [address] [place] [address], [id number]. *The established laboratory minimum viability is 70%. [...] high complexity clinical testing. 02/27/2023 9:10 AM [facility] Embedded Images 9:[address] [facility] LAB Pathology/Cytolo gy AXILLARY LYMPH NODE STRUCTURE / Unknown 02/26/2023 10:50 AM PRESS MANAGER 02/26/2023 2:12 PM PRESS MANAGER Sujit Carlson MD LAB - PATHO LOGY/CYTOLOGY ORDERABLES Performing Organization Address City/State/[facility] Co de Phone Number [facility] [address] [phone] documented in this encounter Visit Diagnoses Diagnosis Malignant melanoma of skin, unspecified (HCC) documented in this encounter Care Teams Ip Network Architect Relationship Specialty Start Date End Date Noe Barone MD [address] [place] [address] PCP - General 03/13/21 documented as of this encounter
--- OUTSIDE RECORDS SUMMARY | 2024-03-28 13:31 | XMS_ITS | Encounter Summary ---
Author Organization [facility] Address [address] [place] [address] Phone Care Team Providers Care Transfer And Pumphouse Operator Name Role Phone Noe Barone MD Primary Care Provider [phone] Encounter Details Date Type Department Care Team (Latest Contact Info) Description 04/06/2023 Orders Only [facility] Scanning, Provider Social History Tobacco Use Types Packs/Day Years Used Date Smoking Tobacco: Never Smokeless Tobacco: Never Alcohol Use Standard Drinks/Week Comments Yes 0 (1 standard drink = 0.6 oz pur e alcohol) Comments Unknown Sex and Gender Information Value Date Recorded Sex Assigned at Not on file Legal Sex Female 10:03 AM EMERGENCY ROOM DOCTOR Gender Identity Not on file Sexual Orientation Not on file documented as of this encounter Plan of Treatment Not on file documented as of this encounter Procedures Procedure Name Priority Date/Time Associated Diagnosis Comments SCAN - PATHOLOGY 04/06/2023 documented in this encounter Results * SCAN - PATHOLOGY (04/06/2023) us Provider Scanning Final Result documented in this encounter Visit Diagnoses Not on filedocumented in this encounter Care Teams Transfer And Pumphouse Operator Relationship Specialty Start Date End Date Noe Barone MD PCP - General 11/13/09 documented as of this encounter
== END 2024-03-28 10:25 | disposition home or self-care (01) ==
PROVIDERS: PCP Family Medicine; Visit Provider Internal Medicine Hematology & Oncology
DX: C43.61 Malignant melanoma of right upper limb, including shoulder (principal)
CPT/HCPCS: 71260; 74177; Q9967

== ENCOUNTER → 2024-04-11 15:27 | Outpatient (REF) | payer MEDICARE, BC, SELFPAY | LOC: ANHLAB 15:27 | PROVIDERS: Visit Provider Plastic Surgery | DX: C44.729 Squamous cell carcinoma of skin of left lower limb, including hip (principal); L30.8 Other specified dermatitis | CPT/HCPCS: 88305 ==

== ENCOUNTER 2024-05-24 10:31 | Outpatient (CLI) | payer MEDICARE, BC, SELFPAY ==
--- NOTE | ~2024-05-24 | CT_ITS ---
Clinical Indication: Malignant melanoma CT Scan of the Chest, Abdomen, and Pelvis with Contrast: Technique: Contiguous sections were acquired throughout the chest, abdomen, and pelvis after intraven ous administration of 100 cc of Omnipaque 350. Dose reduction technique was used on this scan by jean paul shuklaing automated exposure control and iterative reconstruction technique. The dose-length product (DL P) was 875.80 mGy-cm. Comparison: 03/28/2024 Findings: Right axillary and right subpectoral lymphadenopathy is present, compatible with metastatic disease. Largest node in the right subpectoral region measures 3.1 x 2.4 cm, similar to prior exam. Probable p rior CABG. There is no evidence of pleural or pericardial effusion. Stable 4 mm groundglass nodule in the right upper lobe (axial image 25). The liver, pancreas, adrenals and kidneys are within normal limits. Cholecystectomy clips are present . Stable 3.4 cm hypodense splenic mass. Stable additional smaller subcentimeter hypodense splenic mas s. There are atherosclerotic calcifications of the aorta. No lymphadenopathy. No bowel obstruction or bowel wall thickening. There is no evidence to suggest acute appendicitis. Urinary bladder is unremarkable. No pelvic mass seen. No ascites. Stable lytic lesion left T4 transverse process. Impression: Stable right axillary and right subpectoral metastatic lymphadenopathy. Stable splenic masses. Stable lytic lesion left T4 transverse process. Stable 4 mm groundglass right upper lobe pulmonary nodule. Reviewed, dictated and finalized at [facility]. Impression: Stable right axillary and right subpectoral metastatic lymphadenopathy. Stable splenic masses. Stable lytic lesion left T4 transverse process. Stable 4 mm groundglass right upper lobe pulmonary nodule.
[2024-05-24 10:53] LABS: Estimated Glomerular Filt Rate 44
--- OUTSIDE RECORDS SUMMARY | 2024-05-24 11:35 | XMS_ITS | Clinical Summary ---
Author Organization [facility] Jessica Fernandez Address [address] [place] [address] Care Team Providers Care Director Industrial Museum Name Role Phone Noe Barone MD Primary Care Provider [phone] Allergies Active Allergy Reactions Criticality Noted Date Comments Sulfa (Sulfonamide Antibiotics) Hives High 03/13 Medications metoprolol tartrate (LOPRESSOR) 25 mg tablet Take 1 Tablet by mouth 2 times daily. 05/20/2021 Active amLODIPine (NORVASC) 5 mg tablet 01/19/2022 Active aspirin (ECOTRIN EC) 81 mg Tablet, Delayed Release (E.C.) Take 81 mg by mouth daily. Active acetaminophen (TYLENOL) 500 mg tablet Take 500 mg by mouth every 6 hours as needed. Active hydrOXYzine HCL (ATARAX) 25 mg tablet Take 1 Tablet (25 mg) by mouth 3 times daily as needed for Itching. 30 Tablet 1 06/05/2023 Active imatinib (Gleevec) 400 mg tabletIndication s:Malignant melanoma of right upper extremity (CMS/HCC) Take 1 Tablet (400 mg) by mouth daily with breakfast. 30 Tablet 6 02/17/2024 Active imatinib (Gleevec) 400 mg tablet Take 1 Tablet (400 mg) by mouth daily with breakfast. 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 Encounters Date Type Department Care Team Description 05/16/2024 Orders Only [facility] Oncology and Hematology - [place] [address] [place] [address] Brian Herr MD Malignant melanoma of right upper extremity (CMS/HCC) 05/02/2024 Orders Only [facility] Oncology and Hematology - [place] [address] [place] [address] Brian Herr MD Malignant melanoma of right upper extremity (CMS/HCC) 04/27/2024 External Device Data STL ABSTRACTION Provider, Abstract 04/18/2024 Orders Only [facility] Oncology and Hematology - [place] [address] [place] [id number] Brian Herr MD Malignant melanoma of right upper extremity (CMS/HCC) 04/16/2024 External Device Data STL ABSTRACTION Provider, Abstract 04/15/2024 External Device Data STL ABSTRACTION Provider, Abstract 04/14/2024 Orders Only [facility] Oncology and Hematology - [place] [address] [place] [address] Brian Herr MD 04/14/2024 Abstract [facility] Oncology and Hematology - [place] [address] [place] [address] Brian Herr MD 04/06/2024 11:00 AM FITTING ROOM ATTENDANT Office Visit [facility] Oncology and Hematology - [place] [address] [place] [address] Brian Herr MD Malignant melanoma of right upper extremity (CMS/HCC) (Primary Dx) 04/06/2024 Orders Only [facility] Oncology and Hematology - [place] [address] [place] [address] Brian Herr MD 04/04/2024 Orders Only [facility] Oncology and Hematology - [place] [address] [place] [phone] Brian Herr MD Malignant melanoma of right upper extremity (CMS/HCC) 03/30/2024 External Device Data STL ABSTRACTION Provider, Abstract 03/21/2024 Orders Only [facility] Oncology and Hematology [facility] [address] [place] [address] Brian Herr MD Malignant melanoma of right upper extremity (CMS/HCC) 03/07/2024 Orders Only [facility] Oncology and Hematology [facility] [address] [place] [address] Brian Herr MD Malignant melanoma of right upper extremity (CMS/HCC) 03/02/2024 External Device Data STL ABSTRACTION Provider, Abstract 03/02/2024 External Device Data STL ABSTRACTION Provider, Abstract 03/02/2024 Refill [facility] Oncology and Hematology [facility] [address] [place] [address] Brian Herr MD 02/24/2024 11:30 AM FITTING ROOM ATTENDANT Office Visit [facility] Oncology and Hematology [place] [address] [place] [address] Brian Herr MD Malignant melanoma of right upper extremity (CMS/HCC) (Primary Dx) from Last 3 Months Family History Relation Name Status Comments Father Mother Sister 1 Alive Sister 2 Social History Tobacco Use Types Packs/Day Years Used Date Smoking Tobacco: Never Smokeless Tobacco: Never Tobacco Cessation:Counseling Given: Not Answered Comments Unknown Sex and Gender Information Value Date Recorded Sex Assigned at Female 11/19/2023 5:40 PM CDT Legal Sex Female 2:48 PM FITTING ROOM ATTENDANT Gender Identity Female 11/19/2023 5:40 PM CDT Sexual Orientation Not on file Last Filed Vital Signs Vital Sign Reading Time Taken Comments Blood Pressure 160/74 04/06/2024 10:58 AM FITTING ROOM ATTENDANT Pulse 74 04/06/2024 10:54 AM FITTING ROOM ATTENDANT Temperature 36.2 C (97.2 F) 04/06/2024 10:54 AM FITTING ROOM ATTENDANT Respiratory Rate 15 04/06/2024 10:54 AM FITTING ROOM ATTENDANT Oxygen Saturation 98% 02/24/2024 11:32 AM FITTING ROOM ATTENDANT Inhaled Oxygen Concentration - - Weight 78.7 kg (173 lb 6.4 oz) 04/06/2024 10:54 AM FITTING ROOM ATTENDANT Height 157.5 cm (5' 2 ) 04/03/2022 4:03 PM FITTING ROOM ATTENDANT Body Mass Index 31.72 04/03/2022 4:03 PM FITTING ROOM ATTENDANT Plan of Treatment Upcoming Encounters Date Type Department Care Team (Late st Contact Info) Description 06/10/2024 11:00 AM CDT Office Visit [facility] Oncology and Hematology - [place] [address] [facility] [address] [place] [address] Brian Herr MD [address] [facility] [address] [place] [address] Health Maintenance Due Date Last Done Comments DTAP/TDAP/TD VACCINES (1 - Tdap) 1965 PNEUMOCOCCAL VACCINE 50+ YEA RS (1 of 1 - PCV) 1996 ZOSTER VACCINE (1 of 2) 1996 RSV VACCINE (60+ or ) (1 - 1-dose 75+ series) 2021 INFLUENZA VACCINE (#1) 2023 3, 10/27/2019, 11/16/2018, Additional history exists OSTEOPOROSIS SCREENING Completed 04/09/2021 Procedures Procedure Name Priority Date/Time Associated Diagnosis Comments COMPREHENSIVE METABOLIC PANEL Routine 04/06/2024 3:35 PM FITTING ROOM ATTENDANT CBC WITH AUTODIFFERENTIAL Routine 2024 11:54 AM FITTING ROOM ATTENDANT from Last 3 Months Results * COMPREHENSIVE METABOLIC PANEL (04/06/2024 3:35 PM FITTING ROOM ATTENDANT) Blood Brian Herr MD CHEMISTRY ORDERABLES Final Resu lt * CBC WITH AUTODIFFERENTIAL (04/06/2024 11:54 AM FITTING ROOM ATTENDANT) Blood Brian Herr MD HEMATOLOGY ORDERABLES Final Res ult from Last 3 Months Insurance IncreaseCard BLUE ACCESS/TRUE [employer] PPO IncreaseCard SUPP RX [employer] Medicare Part D Care Teams Director Industrial Museum Relationship Specialty Start Date End Date Noe Barone MD [address] [place] [address] PCP - General Family Practice 04/03/22
--- OUTSIDE RECORDS SUMMARY | 2024-05-24 11:35 | XMS_ITS | Encounter Summary ---
Author Organization [facility] Address [address] [place] [address] Care Team Providers Care Security Systems Engineer Name Role Phone Noe Barone MD Primary Care Provider [phone] Encounter Details Date Type Department Care Team (Late st Contact Info) Description 02/26/2023 Lab Requisition 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 Not on file Not on file Not on rose e documented as of this encounter Plan of Treatment Not on file documented as of this encounter Procedures Procedure Name Priority Date/Time Associated Diagnosis Comments FLOW CYTOMETRY TISSUE PANEL Routine 02/26/2023 10:50 AM AIRPLANE DISPATCH CLERK Malignant melanoma of skin, unspecified (CMS-HCC) documented in this encounter Results * FLOW CYTOMETRY TISSUE PANEL (02/26/2023 10:50 AM AIRPLANE DISPATCH CLERK) Case Report Flow Cytometry Case: [id number] Authorizing Provider: Zeus Carlson MD Collected: 02/26/2023 10:50 AM Ordering Location: [facility] Pathology Lab Received: 02/26/2023 02:12 PM Pathologist: Antoinette Diaz MD Specimen: Axillary Lymph Node, RIGHT 02/27/2023 9:10 AM [facility] Final Diagnosis Axillary lymph node, [...] classification of the tumor. 02/27/2023 9:10 AM [facility] Flow Cytometry Interpretation Insufficient hematolymphoid cells for evaluation. A cytospin prepared from the flow cytometry specimen has been reviewed for director software quality assurance purposes. 02/27/2023 9:10 AM [facility] Flow Cytometry Results Too few hematopoietic cells for flow cytometric analysis. 02/27/2023 9:10 AM [facility] Reason for test Malignant melanoma of skin, unspecified ([facility]) 02/27/2023 9:10 AM [facility] Client Specimen ID # [id number] 02/27/2023 9:10 AM [facility] Pathologist Location at [facility] 02/27/2023 9:10 AM [facility] Disclaimer Test performed at [facility], [address] [place] [address], [id number]. *The established laboratory minimum viability is 70%. [...] high complexity clinical testing. 02/27/2023 9:10 AM AIRPLANE DISPATCH CLERK [facility] Embedded Images 9:10 AM AIRPLANE DISPATCH CLERK [facility] Pathology/Cytolo gy AXILLARY LYMPH NODE STRUCTURE / Unknown 02/26/2023 10:50 AM AIRPLANE DISPATCH CLERK 02/26/2023 2:12 PM AIRPLANE DISPATCH CLERK Sujit Carlson MD LAB - PATHOLOGY/CYT OLOGY ORDERABLES Final Result [facility] [address] [phone] documented in this encounter Visit Diagnoses Diagnosis Malignant melanoma of skin, unspecified (HCC) documented in this encounter Care Teams Security Systems Engineer Relationship Specialty Start Date End Date Noe Barone MD [address] [place] [address] PCP - General 03/13/21 documented as of this encounter
--- OUTSIDE RECORDS SUMMARY | 2024-05-24 11:35 | XMS_ITS | Clinical Summary ---
Author Organization [facility] Address [address] [place] [address] Care Team Providers Care Sales And Distribution Clerk Name Role Phone Unavailable Primary Care Provider [...] 1996 Dexa Scan (General) 07/28/2011 Pneumococcal Vaccine: 50+ Ye ars (1 of 1 - PCV) 07/28/2011 RSV Immunization or 60+ Years (1 - 1-dose 75+ series) 2021 COVID-19 Vaccine (2023-2 5 season) 2023 Meningococcal B Vaccine Aged Out No l onger eligible based on patient's age to complete this topic Meningococcal Vaccine Aged Out No china alfredo eligible based on patient's age to complete this topic RSV Immunizations Under 20 Months Aged Out No longer eligible based on patient's age to complete this topic
--- OUTSIDE RECORDS SUMMARY | 2024-05-24 11:35 | XMS_ITS | Referral Summary ---
Author Organization [facility] [address] [facility] [address] Address [address] [place] [address] Care Team Providers Care Glost Tile Shader Name Role Phone Noe Barone MD Primary Care Provider Encounters Date Type Department Care Team Description 03/18/2024 3:00 PM SHIPPING AND RECEIVING CLERK Office Visit [facility] Cardiology [address] [facility] [address] [place] [address] Chelsea Maciel NP Coronary artery disease involving [place] coronary artery of [place] heart without angina pectoris (Primary Dx); Hx [...] essential hypertension Coronary artery disease invo lving [place] coronary artery of [place] heart without angina pectoris 02/28/2014 Overview (05/15/2016): Coronary arteriosclerosis in [place] artery Pure hypercholesterolemia 02/28/2014 Overview (05/15/2016): Pure [...] on file Legal Sex Female 10:03 AM SHIPPING AND RECEIVING CLERK Gender Identity Not on file Sexual Orientation Not on file Last Filed Vital Signs Vital Sign Reading Time Taken Comments Blood Pressure 130/62 03/18/2024 2:48 PM SHIPPING AND RECEIVING CLERK Pulse 65 03/18/2024 2:48 PM SHIPPING AND RECEIVING CLERK Temperature 36.3 C (97.3 F) 08/03/2023 9:21 AM CDT Respiratory Rate - - Oxygen Saturation 98% 03/18/2024 2:48 PM SHIPPING AND RECEIVING CLERK Inhaled Oxygen Concentration - - Weight 79.8 kg (176 lb) 03/18/2024 2:48 PM SHIPPING AND RECEIVING CLERK Height 157.5 cm (5' 2 ) 03/18/2024 2:48 PM SHIPPING AND RECEIVING CLERK Body Mass Index 32.19 03/18/2024 2:48 PM SHIPPING AND RECEIVING CLERK Plan of Treatment Not on file Procedures Procedure Name Priority Date/Time Associated Diagnosis Comments POCT LIPID PANEL Routine 03/18/2024 3:32 PM SHIPPING AND RECEIVING CLERK Coronary artery disease involving [place] coronary artery of [place] heart without angina pectoris from Last 3 Months Results * POCT lipid panel (03/18/2024 3:32 PM SHIPPING AND RECEIVING CLERK) Cholesterol, POC 111 mg/dL Comment:Glucose 103 HDL, POC 58 mg/dL Triglycerides, POC 75 mg/dL LDL Cholesterol POC 38 mg/dL Chol/HDL Ratio, POC 0.7 Non-HDL Cholesterol, POC 53 mg/dL Cholesterol Total, POC 111 mg/dL Capillary blood 03/18/2024 3 :32 PM SHIPPING AND RECEIVING CLERK Chelsea Maciel NP POINT OF CARE TEST ORDERA BLES Final Result from Last 3 Months Insurance MEDICARE [facility] MEDICARE BLUE TRADITIONAL OOS BLUE TRADITIONAL OOS MEDICARE Care Teams Glost Tile Shader Relationship Specialty Start Date End Date Noe Barone MD PCP - General 11/13/09
--- OUTSIDE RECORDS SUMMARY | 2024-05-24 11:35 | XMS_ITS | Encounter Summary ---
Author Organization [facility] Address [address] [place] [address] Phone Care Team Providers Care Milk Inspector Name Role Phone oNe Barone MD Primary Care Provider Encounter Details Date Type Department Care Team [...] on file Legal Sex Female 10:03 AM REHABILITATION ATTENDANT Gender Identity Not on file Sexual Orientation [...] on filedocumented in this encounter Care Teams Milk Inspector Relationship Specialty Start Date End Date Noe Barone MD PCP - General 11/13/09 documented as of this encounter
--- OUTSIDE RECORDS SUMMARY | 2024-05-24 11:35 | XMS_ITS | Clinical Summary ---
Author Organization [facility] [address] Address [address] [place] [address] Care Team Providers Care Employee Services Manager Name Role Phone Noe Barone MD Primary Care Provider [phone] Allergies Active Allergy Reactions Criticality Noted Date [...] essential hypertension Coronary artery disease invo lving [place] coronary artery of [place] heart without angina pectoris 02/28/2014 Overview (05/15/2016): Coronary arteriosclerosis in [place] artery Pure hypercholesterolemia 02/28/2014 Overview (05/15/2016): Pure hypercholesterolemia Essential hypertension 11/11/2011 Overview (05/16/2016): Hypertension Resolved Problems Problem Noted Date Diagnosed Date Resolved Date Right carotid bruit 08/10/2017 09/26/19 20 Hyperlipidemia 11/11/2011 09/30/2021 Overview (05/15/2016): Hyperlipidemia Atherosclerosis of coronary artery 11/11/2011 09/17/2020 Overview (05/16/2016): Coronary artery disease Encounters Date Type Department Care Team Description 03/18/2024 3:00 PM SALES SUPPORT ADMINISTRATOR Office Visit [facility] Cardiology [address] [place] [address] Chelsea Maciel NP Coronary artery disease involving [place] coronary artery of red [place] heart without angina pectoris (Primary Dx); Hx [...] on file Legal Sex Female 10:03 AM SALES SUPPORT ADMINISTRATOR Gender Identity Not on file Sexual Orientation Not on file Obstetrics History Last Filed Vital Signs Vital Sign Reading Time Taken Comments Blood Pressure 130/62 03/18/2024 2:48 PM SALES SUPPORT ADMINISTRATOR Pulse 65 03/18/2024 2:48 PM SALES SUPPORT ADMINISTRATOR Temperature 36.3 C (97.3 F) 08/03/2023 9:21 AM CDT Respiratory Rate - - Oxygen Saturation 98% 03/18/2024 2:48 PM SALES SUPPORT ADMINISTRATOR Inhaled Oxygen Concentration - - Weight 79.8 kg (176 lb) 03/18/2024 2:48 PM SALES SUPPORT ADMINISTRATOR Height 157.5 cm (5' 2 ) 03/18/2024 2:48 PM SALES SUPPORT ADMINISTRATOR Body Mass Index 32.19 03/18/2024 2:48 PM SALES SUPPORT ADMINISTRATOR Plan of Treatment Health Maintenance Due Date [...] POCT LIPID PANEL Routine 03/18/2024 3:32 PM SALES SUPPORT ADMINISTRATOR Coronary artery disease involving [place] coronary artery of red [place] heart without angina pectoris from Last 3 Months Results * POCT lipid panel (03/18/2024 3:32 PM SALES SUPPORT ADMINISTRATOR) Cholesterol, POC 111 mg/dL Comment:Glucose 103 HDL, POC 58 mg/dL Triglycerides, POC 75 mg/dL LDL Cholesterol POC 38 mg/dL Chol/HDL Ratio, POC 0.7 Non-HDL Cholesterol, POC 53 mg/dL Cholesterol Total, POC 111 mg/dL Capillary blood 03/18/2024 3 :32 PM SALES SUPPORT ADMINISTRATOR Chelsea Maciel NP POINT OF CARE TEST ORDERA BLES Final Result from Last 3 Months Insurance MEDICARE BLUE TRADITIONAL OOS MEDICARE BLUE TRADITIONAL OOS [place] TRADITIONAL OOS [facility] Address: [address] [place] [address] MEDICARE Care Teams Employee Services Manager Relationship Specialty Start Date End Date Noe Barone MD PCP - General 11/13/09
--- OUTSIDE RECORDS SUMMARY | 2024-05-24 11:35 | XMS_ITS | Clinical Summary ---
Author Organization [facility] Address [address] [place] [address] Phone Care Team Providers Care Job Training Specialist Name Role Phone Unavailable Primary Care Provider Unavailabl e Medications amLODIPine (NORVASC) 5 MG tablet 12/01/2014 Active lisinopril (PRINIVIL,ZESTRIL ) 20 MG tablet 11/19/2014 Acti ve metoprolol tartrate (LOPRESSOR) 25 MG tablet 1 [...] at Not on file Legal Sex Female 8:50 AM [facility] Gender Identity Not on file Sexual Orientation [...]
== END 2024-05-24 10:32 | disposition home or self-care (01) ==
LOC: ANHIMG 10:33
PROVIDERS: Visit Provider Internal Medicine Hematology & Oncology
DX: C43.61 Malignant melanoma of right upper limb, including shoulder (principal); R16.1 Splenomegaly, not elsewhere classified; M89.8X8 Other specified disorders of bone, other site; R91.1 Solitary pulmonary nodule
CPT/HCPCS: 71260; 74177; Q9967

== ENCOUNTER 2024-09-12 10:06 | Outpatient (CLI) | payer MEDICARE, BC, SELFPAY ==
--- NOTE | ~2024-09-12 | CT_ITS ---
Clinical Indication: Right upper extremity myeloma CT Scan of the Chest, Abdomen, and Pelvis with Contrast: Technique: Contiguous sections were acquired throughout the chest, abdomen, and pelvis after intraven ous administration of 100 cc of Omnipaque 350. Dose reduction technique was used on this scan by jean paul means automated exposure control and iterative reconstruction technique. The dose-length product (DL P) was 893.82 mGy-cm. Comparison: 05/24/2024 Findings: 2.8 x 2.2 cm pathologically enlarged right axillary lymph node is present, mildly increased in size f rom prior exam (axial image 38). Right subpectoral lymphadenopathy is also present, with largest node measuring 3.8 x 2.4 cm (axial image 20), mildly increased. No mediastinal/hilar or left axillary lym phadenopathy seen. Mediastinal vascular structures are unremarkable. There is no evidence of pleural or pericardial effusion. The lungs are clear. No pulmonary nodules or infiltrates are noted. The liver, pancreas, adrenals and kidneys are within normal limits. Cholecystectomy clips are present . 4.0 cm hypodense splenic mass is present, mildly increased in size from prior exam. Additional much smaller splenic hypodense lesion is essentially unchanged (axial image 100). No evidence of aortic a neurysm. No lymphadenopathy. No bowel obstruction or bowel wall thickening. There is no evidence to suggest acute appendicitis. Urinary bladder is unremarkable. No pelvic mass seen. No ascites. Stable subtle lytic lesion of the left T4 transverse process. Impression: Right axillary and right subpectoral lymphadenopathy is mildly increased from prior exam, compatible with mild interval progression of metastatic disease. 4 cm splenic mass is increased in size from prior exam, indeterminate. Metastatic/neoplastic disease is a consideration. Stable lytic lesion of the left T4 transverse process. Reviewed, dictated and finalized at location . Impression: Right axillary and right subpectoral lymphadenopathy is mildly increased from p rior exam, compatible with mild interval progression of metastatic disease. 4 cm splenic mass is increased in size from prior exam, indeterminate. Metastat ic/neoplastic disease is a consideration. Stable lytic lesion of the left T4 transverse process.
--- OUTSIDE RECORDS SUMMARY | 2024-09-12 10:30 | XMS_ITS | Clinical Summary ---
Author Organization [facility] Address [address] [facility] [place] [address] Care Team Providers Care After School Program Coordinator Name Role Phone Noe Barone MD Primary Care Provider [phone] Source Comments [facility] and Associated Physician Practices is amultiple site organization consisting of ambulatory clinics and hospital sitesin [place], [place], [place] and [place]. This disclosure is being madepursuant to the Care Everywhere program and may not contain all information available regarding this patient. Last updated 17.[facility] Allergies Active Allergy Reactions Criticality Noted Date Comments Sulfa Drugs 08/27/2015 Medications * Be aware that medications may not be up to date on this document. Alwaysverify current medications with the patient. amLODIPine (NORVASC) 5 MG tabletIndicati ons:Numbness,S ensory loss Take 5 mg by mouth once daily 6 Active atorvastatin (LIPITOR) 40 MG tabletIndicati ons:Numbness,S ensory loss Take 40 mg by mouth once daily 6 Active fenofibrate (LOFIBRA) 54 MG tabletIndicati ons:Numbness,S ensory loss Take 54 mg by mouth once daily 6 Active lisinopril (PRINIVIL; ZESTRIL) 20 MG tabletIndicati ons:Numbness,S ensory loss Take 20 mg by mouth once daily 6 Active metoprolol tartrate (LOPRESSOR) 25 MG tabletIndicati ons:Numbness,S ensory loss Take 25 mg by mouth 2 times daily 6 Active PAZEO 0.7 %Indications:N umbness,Sensor y loss Instill 1 Drop into both eyes once daily 6 Active aspirin (ASPIRIN) 81 MG tabletIndicati ons:Numbness,S ensory loss Take 81 mg by mouth once daily Active Multiple Vitamins-[place] als (MULTIPLE VITAMINS/WOMEN S) TABSIndication s:Numbness,Sen moris loss Take 1 Tab by mouth once daily Active acetaminophen (TYLENOL) 500 MG tabletIndicati ons:Numbness,S ensory loss Take 500 mg by mouth every [...] Job Start Date Job End Date Retired [place] Not on file Not on file Not on rose e Last Filed Vital Signs Vital Sign Reading Time Taken Comments Blood Pressure 150/90 08/27/2015 1:00 PM CDT Pulse 72 08/27/2015 1:00 PM CDT Temperature - - Respiratory Rate 14 08/27/2015 1:00 PM CDT Oxygen Saturation - - Inhaled Oxygen Concentration - - Weight 81.6 kg (180 lb) 08/27/2015 1:00 PM CDT Height 154.9 cm (5' 1) 08/27/2015 1:00 PM CDT Body Mass Index 34.01 08/27/2015 1:00 PM CDT Plan of Treatment Health Maintenance Due Date Last Done Comments BONE DENSITY TESTING 1945 MEDICARE AWV 12 MONTHS 1945 HEPATITIS C SCREENING 07/22/1964 DTAP/TDAP/TD VACCINES (1 - Tdap) 1965 PNEUMOCOCCAL VACCINE 50+ (1 of 1 - PCV) 1996 ZOSTER VACCINE (1 of 2) 1996 Respiratory Syncytial Virus (RSV) Vaccine Pt: or over 60 yrs (1 - 1-dose 75+ series) 2021 COVID-19 VACCINE (1 - 2023-2 5 season) 2023 DEPRESSION SCREENING 02/10/2024 INFLUENZA VACCINE (#1) 2024 HEPATITIS B VACCINE Aged Out No longe r eligible based on patient's age to complete this topic HIB VACCINE Aged Out No longer eligi ble based on patient's age to complete this topic HPV VACCINE Aged Out No longer eligi ble based on patient's age to complete this topic MENINGOCOCCAL (Group B) VACC INE SHARED DECISION-MAKING Aged Out No longer eligibl e based on patient's age to complete this topic MENINGOCOCCAL GROUPS A/C/Y/W VACCINE Aged Out No longer eligible b ased on patient's age to complete this topic Insurance MEDICARE [facility] SELF PAY NO INSURANCE Member Subscriber Plan / Payer (Ef fective for All Dates) Name:Amparo Alvarez Member ID:Not on file Relation to Subscriber:Not on file Name:CHUCK ALVAREZCONRADO Espino Subscriber ID:Not on file (Home) Address: [address] [place] [address] Payer ID:Not on file Group ID:Not on file Type:Self Pay Address: [place], [place] MEDICARE MEDICARE [facility] Care Teams After School Program Coordinator Relationship Specialty Start Date End Date Noe Barone MD [address] [place] [address] PCP - General 03/13/21
--- OUTSIDE RECORDS SUMMARY | 2024-09-12 10:30 | XMS_ITS | Encounter Summary ---
Author Organization [facility] Address [address] [facility] [place] [address] Care Team Providers Care Tafe Lecturer Name Role Phone Noe Barone MD Primary Care Provider [phone] Encounter Details Date Type Department Care Team (Late st Contact Info) Description 02/26/2023 Lab Requisition [facility] - Pathology Lab [address] [place] [address] Sujit Carlson MD [address] [place] [address] Malignant melanoma of skin, unspecified [...] Job Start Date Job End Date Retired [place] Not on file Not on file Not on rose e documented as of this encounter Plan of Treatment Not on file documented as of this encounter Procedures Procedure Name Priority Date/Time Associated Diagnosis Comments FLOW CYTOMETRY TISSUE PANEL Routine 02/26/2023 10:50 AM SENIOR NET DEVELOPER ARCHITECT Malignant melanoma of skin, unspecified (CMS-HCC) documented in this encounter Results * FLOW CYTOMETRY TISSUE PANEL (02/26/2023 10:50 AM SENIOR NET DEVELOPER ARCHITECT) Case Report Flow Cytometry Case: [id number] Authorizing Provider: Zeus Carlson MD Collected: 02/26/2023 10:50 AM Ordering Location: [facility] Pathology Lab Received: 02/26/2023 02:12 PM Pathologist: Antoinette Diaz MD Specimen: Axillary Lymph Node, RIGHT 02/27/2023 9:10 AM [facility] Final Diagnosis Axillary lymph [...] classification of the tumor. 02/27/2023 9:10 AM [facility] at [address] [facility] Flow Cytometry Interpretation Insufficient hematolymphoid cells for evaluation. A cytospin prepared from the flow cytometry specimen has been reviewed for quality systems manager purposes. 02/27/2023 9:10 AM [facility] Flow Cytometry Results Too few hematopoietic cells for flow cytometric analysis. 02/27/2023 9:10 AM [facility] Reason for test Malignant melanoma of skin, unspecified ([facility]-H[facility]) 02/27/2023 9:10 AM [facility] Client Specimen ID # [id number] 02/27/2023 9:10 AM [facility] Pathologist Location at [facility] 02/27/2023 9:10 AM [facility] Disclaimer Test performed at [facility], [address] [place] [address], [id number]. *The established laboratory minimum viability is 70%. [...] high complexity clinical testing. 02/27/2023 9:10 AM SENIOR NET DEVELOPER ARCHITECT [facility] Embedded Images 9:10 AM SENIOR NET DEVELOPER ARCHITECT [facility] Pathology/Cytolo gy AXILLARY LYMPH NODE STRUCTURE / Unknown 02/26/2023 10:50 AM SENIOR NET DEVELOPER ARCHITECT 02/26/2023 2:12 PM SENIOR NET DEVELOPER ARCHITECT Sujit Carlson MD LAB - PATHOLOGY/CYT OLOGY ORDERABLES Final Result [facility] [address] [phone] documented in this encounter Visit Diagnoses Diagnosis Malignant melanoma of skin, unspecified (HCC) documented in this encounter Care Teams Tafe Lecturer Relationship Specialty Start Date End Date Noe Barone MD [address] [place] [address] PCP - General 03/13/21 documented as of this encounter
--- OUTSIDE RECORDS SUMMARY | 2024-09-12 10:30 | XMS_ITS | Clinical Summary ---
Author Organization [facility] Address [address] [place] [address] Phone Care Team Providers Care Rf Design Engineer Name Role Phone Unavailable Primary Care Provider [...] on file Legal Sex Female 8:50 AM [facility] Gender Identity Not on file Sexual Orientation [...] 12:01 AM CDT Height 154.9 cm (5' 1) 11/20/2014 12:01 AM CDT Body Mass Index 34.39 11/20/2014 12:01 AM CDT Plan of Treatment Not on file
--- OUTSIDE RECORDS SUMMARY | 2024-09-12 10:30 | XMS_ITS | Referral Summary ---
Author Organization [facility] [address] Address [address] [place] [address] Care Team Providers Care Sales Agent Casualty Insurance Name Role Phone Noe Barone MD Primary Care Provider [phone] Allergies Active Allergy Reactions Criticality Noted Date Comments Lisinopril Cough Low 09/17/2020 Scratchy cough Pollen Extracts Unknown Low Sulfa (Sulfonamide Antibiotics) Hives Medium Medications aspirin 81 mg tablet take 1 tablet by oral route every day 0 0 07/12/19 15 Active potassium chloride ER 10 mEq CR tablet Take 1 tablet/capsul e (10 mEq total) by mouth 2 (two) times a day 03/26/19 24 Active imatinib (GLEEVEC) 400 mg tablet Take 1 tablet (400 mg total) by mouth daily 08/24/19 24 Active amLODIPine (NORVASC) 5 mg tablet TAKE 1 TABLET DAILY DIRECTED 90 tablet 3 10/13/19 24 Active metoprolol tartrate (LOPRESSOR) 25 mg immediate release tablet TAKE 1 TABLET TWICE A DAY 180 tablet 3 11/12/19 24 Active atorvastatin (LIPITOR) 40 mg tablet TAKE 1 TABLET DAILY DIRECTED 90 tablet 3 11/24/19 24 Active ferrous sulfate 325 mg (65 mg of elemental iron) tabletIndication s:Iron Deficiency Anemia Take 1 tablet (325 mg total) by mouth daily with breakfast Active cyanocobalamin (Vitamin B-12) 100 mcg tabletIndication s:Prevention of Vitamin B12 Deficiency Take 1 tablet (100 mcg total) by mouth daily Active losartan-hydroCH LOROthiazide (HYZAAR) 50-12.5 mg per tabletIndication s:Essential hypertension TAKE 1 TABLET DAILY 90 tablet 1 08/23/19 25 Active losartan-hydroCH LOROthiazide (HYZAAR) 50-12.5 mg per tabletIndication s:Essential hypertension TAKE 1 TABLET DAILY 90 tablet 3 08/31/19 24 025 Discontinued Active Problems Problem Noted Date Diagnosed Date Malignant melanoma of upper limb, right 09/10/19 24 Precordial chest pain 08/17/2023 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 Allergy to AKRIA inhibitors 09/17/2020 Cough 09/26/2019 Atherosclerosis of both carotid arteries 020 Hx of CABG 08/02/2016 Trigeminal neuralgia 12/13/2015 Overview (05/15/2016): Trigeminal neuralgia Numbness 08/27/2015 Multiple-type hyperlipidemia 07/20/2015 Overview (05/15/2016): Mixed hyperlipidemia Chronic kidney disease, stage III (moderate) 02/2014 Overview (05/15/2016): Chronic kidney disease, stage 3 Benign essential hypertension 02/28/2014 Overview (05/15/2016): Benign essential hypertension Coronary artery disease invo lving [place] coronary artery of [place] heart without angina pectoris 02/28/2014 Overview (05/15/2016): Coronary arteriosclerosis in [place] artery Pure hypercholesterolemia 02/28/2014 Overview (05/15/2016): Pure [...] on file Legal Sex Female 10:03 AM ESCALATOR OPERATOR Gender Identity Not on file Sexual Orientation Not on file Last Filed Vital Signs Vital Sign Reading Time Taken Comments Blood Pressure 130/62 03/18/2024 2:48 PM ESCALATOR OPERATOR Pulse 65 03/18/2024 2:48 PM ESCALATOR OPERATOR Temperature 36.3 C (97.3 F) 08/03/2023 9:21 AM CDT Respiratory Rate - - Oxygen Saturation 98% 03/18/2024 2:48 PM ESCALATOR OPERATOR Inhaled Oxygen Concentration - - Weight 79.8 kg (176 lb) 03/18/2024 2:48 PM ESCALATOR OPERATOR Height 157.5 cm (5' 2) 03/18/2024 2:48 PM ESCALATOR OPERATOR Body Mass Index 32.19 03/18/2024 2:48 PM ESCALATOR OPERATOR Plan of Treatment Not on file Insurance MEDICARE BLUE TRADITIONAL OOS MEDICARE BLUE TRADITIONAL OOS BLUE TRADITIONAL OOS Member Subscriber Plan / Payer ( fective 2011-Present) Name:Amparo Alvarez Relation to Subscriber:Self Name:Amparo Alvarez Payer ID:[id number] (NAIC) Type:[facility] Address: [address] [place] [id number] MEDICARE Care Teams Sales Agent Casualty Insurance Relationship Specialty Start Date End Date Noe Barone MD PCP - General 11/13/09
--- OUTSIDE RECORDS SUMMARY | 2024-09-12 10:30 | XMS_ITS | Encounter Summary ---
Author Organization [facility] Address [address] [place] [address] Phone Care Team Providers Care Vegetable Loader Name Role Phone Noe Barone MD Primary Care Provider Encounter Details [...] on file Legal Sex Female 10:03 AM TRANSFER ENGINEER Gender Identity Not on file Sexual Orientation [...] on filedocumented in this encounter Care Teams Vegetable Loader Relationship Specialty Start Date End Date Noe Barone MD PCP - General 11/13/09 documented as of this encounter
--- OUTSIDE RECORDS SUMMARY | 2024-09-12 10:30 | XMS_ITS | Clinical Summary ---
Author Organization [facility] Jessica Fernandez Address [address] [place] [address] Care Team Providers Care Button Attaching Machine Operator Name Role Phone Noe Barone MD Primary Care Provider [phone] Allergies Active Allergy Reactions Criticality Noted Date [...] 1 06/05/2023 Active imatinib (Gleevec) 400 mg tabletIndicatio ns:Malignant melanoma of right upper extremity (CMS/HCC) Take 1 Tablet (400 mg) by mouth daily with breakfast. 30 Tablet 6 02/17/2024 Active imatinib (Gleevec) 400 mg tablet Take 1 Tablet (400 mg) by mouth daily with breakfast. 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 Encounters Date Type Department Care Team Description 08/24/2024 External Device Data STL ABSTRACTION Provider, Abstract 08/23/2024 External Device Data STL ABSTRACTION Provider, Abstract 07/12/2024 External Device Data STL ABSTRACTION Provider, Abstract 07/05/2024 External Device Data STL ABSTRACTION Provider, Abstract 06/29/2024 External Device Data STL ABSTRACTION Provider, Abstract 06/28/2024 External Device Data STL ABSTRACTION Provider, Abstract 06/21/2024 Orders Only [facility] Oncology and Hematology - [place] [address] [place] [address] Brian Herr MD from Last 3 Months Family History Relation Name Status Comments Father Mother Sister 1 Alive Sister 2 Social History Tobacco Use Types Packs/Day Years Used Date Smoking Tobacco: Never Smokeless Tobacco: Never Tobacco Cessation:Counseling Given: Not Answered Comments Unknown Sex and Gender Information Value Date Recorded Sex Assigned at Female 11/19/2023 5:40 PM CDT Legal Sex Female 2:48 PM SEWAGE PLANT ATTENDANT Gender Identity Female 11/19/2023 5:40 PM CDT Sexual Orientation Not on file Last Filed Vital Signs Vital Sign Reading Time Taken Comments Blood Pressure 140/73 06/10/2024 10:53 AM CDT Pulse 60 06/10/2024 10:48 AM CDT Temperature 36.3 C (97.4 F) 06/10/2024 10:48 AM CDT Respiratory Rate 15 06/10/2024 10:48 AM CDT Oxygen Saturation 97% 06/10/2024 10:48 AM CDT Inhaled Oxygen Concentration - - Weight 80.5 kg (177 lb 6.4 oz) 06/10/2024 10:48 AM CDT Height 157.5 cm (5' 2) 04/03/2022 4:03 PM SEWAGE PLANT ATTENDANT Body Mass Index 32.45 04/03/2022 4:03 PM SEWAGE PLANT ATTENDANT Plan of Treatment Upcoming Encounters Date Type Department Care Team (Late st Contact Info) Description 09/19/2024 10:00 AM CDT Office Visit [facility] Oncology and Hematology - [place] [address] [place] [address] Brian Herr MD [address] [facility] [address] [place] [id number] Health Maintenance Due Date Last Done Comments DTAP/TDAP/TD VACCINES (1 - Tdap) 1965 PNEUMOCOCCAL VACCINE 50+ YEA RS (1 of 1 - PCV) 1996 ZOSTER VACCINE (1 of 2) 1996 RSV VACCINE (60+ or ) (1 - 1-dose 75+ series) 2021 INFLUENZA VACCINE (#1) 2024 , 10/27/2019, 11/16/2018, Additional history exists OSTEOPOROSIS SCREENING 04/09/2026 04/09/2021 Insurance MEDICARE PART A AND B [facility] BLUE ACCESS/TRUE BLUE PPO MEDICARE PART A AND B BCBS SUPP RX [employer] Medicare Part D Care Teams Button Attaching Machine Operator Relationship Specialty Start Date End Date Noe Barone MD [address] [place] [id number] PCP - General Family Practice 04/03/22
--- OUTSIDE RECORDS SUMMARY | 2024-09-12 10:30 | XMS_ITS | Clinical Summary ---
Author Organization [facility] Address [address] [place] [address] Care Team Providers Care Supplier Quality Specialist Name Role Phone Unavailable Primary Care [...] Td Vaccines ( 1 - Tdap) 1965 Pneumococcal Vaccine: 50+ Ye ars (1 of 1 - PCV) 1996 Zoster Vaccines (1 of 2) 1996 Dexa Scan (General) 07/28/2011 RSV Immunization or 60+ Years (1 [...]
--- OUTSIDE RECORDS SUMMARY | 2024-09-12 10:30 | XMS_ITS | Clinical Summary ---
Author Organization [facility] [address] Address [address] [place] [address] Care Team Providers Care Paver Layer Name Role Phone Noe Barone MD Primary Care Provider + [phone] Allergies Active Allergy Reactions Criticality Noted Date [...] essential hypertension Coronary artery disease invo lving [place] coronary artery of [place] heart without angina pectoris 02/28/2014 Overview (05/15/2016): Coronary arteriosclerosis in [place] artery Pure hypercholesterolemia 02/28/2014 Overview (05/15/2016): Pure [...] on file Legal Sex Female 10:03 AM DIAMOND CLEAVER Gender Identity Not on file Sexual Orientation Not on file Obstetrics History Last Filed Vital Signs Vital Sign Reading Time Taken Comments Blood Pressure 130/62 03/18/2024 2:48 PM DIAMOND CLEAVER Pulse 65 03/18/2024 2:48 PM DIAMOND CLEAVER Temperature 36.3 C (97.3 F) 08/03/2023 9:21 AM CDT Respiratory Rate - - Oxygen Saturation 98% 03/18/2024 2:48 PM DIAMOND CLEAVER Inhaled Oxygen Concentration - - Weight 79.8 kg (176 lb) 03/18/2024 2:48 PM DIAMOND CLEAVER Height 157.5 cm (5' 2) 03/18/2024 2:48 PM DIAMOND CLEAVER Body Mass Index 32.19 03/18/2024 2:48 PM DIAMOND CLEAVER Plan of Treatment Health Maintenance Due Date Last Done Comments Depression Screening 1945 Fall Risk Assessment 1945 Hepatitis C Screening 1945 Osteoporosis Screening-Bone Density Scan 1945 DTaP/Tdap/Td Vaccine (1 - Tdap) 1957 Hepatitis B Screening 1964 Pneumococcal vaccine 65+ (1 of 2 - PCV) 1965 Zoster Vaccine (1 of 2) 1965 Well Visit 65+ 07/28/2011 Influenza Vaccine (#1) 2024 0, 11/16/2018, 11/12/2017, Additional history exists Insurance MEDICARE [facility] OOS MEDICARE BLUE TRADITIONAL OOS BLUE TRADITIONAL OOS MEDICARE Care Teams Paver Layer Relationship Specialty Start Date End Date Noe Barone MD [facility] - General 11/13/09
[2024-09-12 10:34] LABS: Estimated Glomerular Filt Rate 43
== END 2024-09-12 10:07 | disposition home or self-care (01) ==
PROVIDERS: PCP Family Medicine; Visit Provider Internal Medicine Hematology & Oncology
DX: R59.0 Localized enlarged lymph nodes (principal); R16.1 Splenomegaly, not elsewhere classified; M89.8X8 Other specified disorders of bone, other site; C90.00 Multiple myeloma not having achieved remission
CPT/HCPCS: 71260; 74177; Q9967

== ENCOUNTER 2024-10-11 15:49 | Emergency (ER) | payer MEDICARE, BC, SELFPAY ==
--- NOTE | 2024-10-11 15:54 | ED.SKABFB ---
HPI - Skin/Abscess/Foreign Bdy General Chief complaint: Skin/Abscess/Foreign Body Stated complaint: Poison [place] Time Seen by Provider: 10/11/24 15:58 Source: patient, RN notes reviewed and old records reviewed Mode of arrival: ambulatory Limitations: no limitations History of Present Illness HPI narrative: 79-year-old female presents to the [facility] with complaints of a rash. Patient reports today for of bilateral wrist rashes. Has applied topical cream. States that she was also concerned because she started a new medication. Patient with vesicular, dermatitis rash to bilateral wrists. Describes him as being very itchy. Related Data Home Medications ?Medication ?Instructions ?Recorded ?Confirmed ?Last Taken ?Type amlodipine 5 mg tablet 5 mg PO DAILY 01/18/19 09/15/23 08/21/22 History atorvastatin 40 mg tablet (Lipitor) 40 mg PO HS 01/18/19 09/15/23 Unknown History metoprolol tartrate 25 mg tablet 25 mg PO BID 01/18/19 09/15/23 08/21/22 History aspirin 81 mg tablet,delayed 81 mg PO DAILY 11/28/20 09/15/23 Unknown History release (Adult Low Dose Aspirin) losartan 50 mg tablet 50 mg PO QAM 11/28/20 09/15/23 04/10/22 History 0440 nitroglycerin 0.4 mg sublingual 0.4 mg sublingual Q5M PRN Chest 11/28/20 09/15/23 Unknown History tablet Pain nivolumab 240 mg/24 mL intravenous 240 mg IV MONTHLY 05/27/22 09/15/23 Unknown History solution cetirizine 10 mg tablet (Zyrtec) 10 mg PO DAILY PRN Allergy Symptoms 07/11/22 09/15/23 Unknown History acetaminophen 500 mg tablet 500 mg PO Q6H PRN Pain 08/13/22 09/15/23 Unknown History imatinib 400 mg tablet 400 mg PO DAILY 09/04/23 09/15/23 Unknown History nilotinib HCl 200 mg capsule mg PO 10/11/24 Unknown History Allergies Allergy/AdvReac Type Severity Reaction Status Date / Time Sulfa (Sulfonamide AdvReac Unknown Rash Verified 10/11/24 16:06 Antibiotics) Review of Systems Review of Systems: All systems reviewed & are unremarkable except as noted in HPI and below Constitutional: Constitutional: Reports no additional constitutional complaints ENT: Reports system reviewed and no additional complaints, except as documented Cardiovascular: Cardiovascular: Reports no additional cardiovascular complaints, Denies chest pain and Denies dyspnea Respiratory: Respiratory: Reports no additional respiratory complaints, Denies chest congestion, Denies cough and Denies dyspnea Musculoskeletal: Musculoskeletal: Reports no additional musculoskeletal complaints Integumentary/Breasts: Skin/Breast: Reports as per HPI and Reports rash PMFSH Past Medical History Medical History 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 Abnormality of right breast on screening mammogram Acute sinusitis Cerumen impaction Serous otitis media Post-menopausal Hyperlipidemia Hypertension COVID-19 BMI 33.0-33.9,adult Acute UTI Acute pain of left hip Dietary counseling and surveillance (07/30/17) Injury of facial nerve, left side, initial encounter White coat syndrome without diagnosis of hypertension Surgical History Surgical History History of hysterectomy History of cholecystectomy Hx of CABG x2, 2009 H/O breast biopsy Family History Family History Father Hypertension Family history of throat cancer Mother Family history of cardiac disorder Family history of malignant neoplasm of breast in first degree relative Breast cancer Cerebrovascular accident Sibling Leukemia Sibling Breast cancer Social History Social History Smoking status: Never smoker Second hand tobacco smoke exposure: No Alcohol intake: current Substance use: never Substance use type: does not use Lack of Transportation: No Lack of Food: Never True Current Housing: I Have Housing Concerned About Future Housing: No Difficulty Paying Gas/Electric Bills: No Difficulty Paying for Meds: No Currently Unemployed: No Difficulty w/ Childcare or Family Care: No Living arrangements: with family Additional living arrangements comments: [facility] Occupation/Education: retired Additional occupation/education comments: [employer] Gender identity (if verbalized by the patient): Female Spiritual care concerns: No Comments At the time of my signature, I reviewed and agree with the nursing past medical, surgical, social, and family history. There is no relevant family history pertinent to the patient complaint. Exam Const: General: cooperative, healthy appearing, comfortable, no acute distress, well developed, alert and well nourished Nutritional Appearance: well nourished Orientation/consciousness: patient oriented x3 Limitations: no limitations HENMT: Head: normal to inspection Mouth: Yes Normal oral and palatal mucosa present, Yes lip normal, Yes tongue normal and Yes moist mucous membranes Eyes: General: appearance normal, both eyes and all related structures Alignment and Position: alignment normal Neck: Neck: normal visual inspection, full ROM, no lymphadenopathy and no meningeal signs Chest: Chest palpation & inspection: normal inspection of the chest Resp: Effort & Inspection: normal respiratory effort and able to speak in complete sentences Cardio: Rate: regular rate Skin: General skin exam: normal color and no rashes or lesions noted Rashes: rashes noted Other: Red vesicular rashes bilateral volar wrists. Neuro: General: patient oriented x3, gait normal, moves all extremities and no meningeal signs Cognition (Neuro): normal cognition Speech: normal speech Gait exam (Neuro): Normal gait present Extrem: General: normal to inspection, full ROM, capillary refill normal and normal gait Psych: Appearance: grossly normal and well kempt Mental Status: mental status grossly normal Speech and movement: Normal speech and movement present and Clear speech present Affect: normal affect Attitude: cooperative Course Course Level of Care: Express Care Visit Vital Signs Vital signs: Vital Signs Temperature 97.7 F 10/11/24 15:59 Pulse Rate 72 10/11/24 15:59 Respiratory Rate 16 10/11/24 15:59 Blood Pressure 138/56 L 10/11/24 15:59 Pulse Oximetry 100 10/11/24 15:59 Temperature 97.7 F 10/11/24 15:59 Pulse Rate 72 10/11/24 15:59 Respiratory Rate 16 10/11/24 15:59 Blood Pressure 138/56 L 10/11/24 15:59 Pulse Oximetry 100 10/11/24 15:59 Reviewed MDM - Skin/Abscess/Foreign Bdy MDM Narrative Medical decision making narrative: Patient sitting in exam. Patient is nontoxic, vitals stable. Patient presents with bilateral rashes to arms, consistent with contact dermatitis, will prescribe steroids, will started 40 mg sensitive 60 due to patient's creatinine levels. Patient is being followed by Oncology. Discussed [id number] treatments as well. Discussed signs and symptoms proceed to the emergency room which she verbalized understanding Discharge instructions reviewed with patient, as well as provided in writing per nursing staff. The instructions also include specific and strict return/GO TO THE ER as well as f/u information. All questions have been answered, and the patient deny any further questions with discharge and discharge plan. Some parts of this dictation were generated by voice recognition software and may contain typographical and/or grammatical inaccuracies. Differential Diagnosis Differential diagnosis: Likely abscess of skin or subcutaneous tissue, urticaria, herpes zoster, allergic reaction to drug, cellulitis, eczema, insect bites, impetigo and contact dermatitis Critical Care Time Critical Care Time Critical Care Time: No Discharge Plan Discharge Clinical Impression: Contact dermatitis Patient Disposition: Home Condition: Stable Instructions: Contact Dermatitis (ED) Additional Instructions: The most important part of your care is follow up with Primary care provider. Take Benadryl 25-50 mg every 8 hours for itching Take Zyrtec every day Take Pepcid 20mg daily for 7 days Take the steroids starting today and next dose will be tomorrow morning Avoid hot showers, Take cool showers. Hot showers will make rashes worse Apply cool compresses every 2-3 hours for 15 minutes Go to the ER for new or worsening symptoms such as shortness of breath. Patient Language: Maori Prescriptions: New prednisone 20 mg tablet See Rx Instructions .Route .COMPLEX Qty: 15 0RF Rx Instructions: Take 40 mg daily for 5 days, 20 mg daily for 5 days No Action nilotinib HCl 200 mg capsule PO cetirizine [Zyrtec] 10 mg Tablet 10 mg PO DAILY PRN (Reason: Allergy Symptoms) imatinib 400 mg Tablet 400 mg PO DAILY atorvastatin [Lipitor] 40 mg tablet 40 mg PO HS metoprolol tartrate 25 mg tablet 25 mg PO BID Patient Comments: TAKES 25 MG BID amlodipine 5 mg tablet 5 mg PO DAILY losartan 50 mg tablet 50 mg PO QAM nitroglycerin 0.4 mg tablet, sublingual 0.4 mg sublingual Q5M PRN (Reason: Chest Pain) Rx Instructions: do not exceed 3 doses per episode aspirin [Adult Low Dose Aspirin] 81 mg tablet,delayed release (DR/EC) 81 mg PO DAILY nivolumab 240 mg/24 mL solution 240 mg IV MONTHLY acetaminophen 500 mg Tablet 500 mg PO Q6H PRN (Reason: Pain) tramadol 50 mg tablet 50 - 100 mg PO Q6H PRN (Reason: pain) Qty: 10 0RF azithromycin [Zithromax] 250 mg tablet See Rx Instructions PO .COMPLEX Qty: 6 0RF Rx Instructions: take 500 mg today (day 1), then 250 mg for 4 days (days 2-5) PO Follow-up/Referrals: Noe Barone MD [Primary Care Provider, Family Practice] - 1 Week Time of Disposition: 16:07
[2024-10-11 15:59] VITALS: BP 138/56; PULSE 72; RESP 16; TEMP 36.5; O2SAT 100
== END 2024-10-11 16:13 | disposition home or self-care (01) ==
PROVIDERS: Emergency Provider Nurse Practitioner; PCP Family Medicine
DX: L25.9 Unspecified contact dermatitis, unspecified cause (principal); I10 Essential (primary) hypertension; E78.5 Hyperlipidemia, unspecified; Z95.1 Presence of aortocoronary bypass graft; Z79.82 Long term (current) use of aspirin
CPT/HCPCS: 99213; G0463

== ENCOUNTER 2024-10-27 14:21 | Outpatient (CLI) | payer MEDICARE, BC, SELFPAY ==
--- OUTSIDE RECORDS SUMMARY | 2024-10-27 14:27 | XMS_ITS | Clinical Summary ---
Author Organization [facility] Address [address] [place] [address] Phone Care Team Providers Care Purchasing Officer Name Role Phone Unavailable Primary Care Provider [...] on file Legal Sex Female 8:50 AM [facility] Gender Identity Not on file [...]
--- OUTSIDE RECORDS SUMMARY | 2024-10-27 14:27 | XMS_ITS | Encounter Summary ---
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
--- OUTSIDE RECORDS SUMMARY | 2024-10-27 14:27 | XMS_ITS | Clinical Summary ---
Author Organization [facility] [address] Address [address] [place] [address] Care Team Providers Care Clinical Rehabilitation Liaison Name Role Phone Noe Barone MD Primary Care Provider + [phone] Allergies Active Allergy Reactions Criticality Noted Date [...] total) by mouth daily 08/24/19 24 Active metoprolol tartrate (LOPRESSOR) 25 mg [...] DAILY 90 tablet 1 08/23/19 25 Active amLODIPine (NORVASC) 5 mg tablet TAKE 1 TABLET DAILY DIRECTED 90 tablet 3 10/14/19 25 Active amLODIPine (NORVASC) 5 mg tablet TAKE 1 TABLET DAILY DIRECTED 90 tablet 3 10/13/19 24 025 Discontinued Active Problems Problem Noted [...] essential hypertension Coronary artery disease invo lving [place] coronary artery of [place] heart without angina pectoris 02/28/2014 Overview (05/15/2016): Coronary arteriosclerosis in [place] artery Pure hypercholesterolemia 02/28/2014 Overview (05/15/2016): Pure [...] on file 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 Gender Identity Not on file Sexual Orientation Not on file Obstetrics History Last Filed Vital Signs Vital Sign Reading Time Taken Comments Blood Pressure 130/62 03/18/2024 2:48 PM HERB DIGGER Pulse 65 03/18/2024 2:48 PM HERB DIGGER Temperature 36.3 C (97.3 F) 08/03/2023 9:21 AM CDT Respiratory Rate - - Oxygen Saturation 98% 03/18/2024 2:48 PM HERB DIGGER Inhaled Oxygen Concentration - - Weight 79.8 kg (176 lb) 03/18/2024 2:48 PM HERB DIGGER Height 157.5 cm (5' 2) 03/18/2024 2:48 PM HERB DIGGER Body Mass Index 32.19 03/18/2024 2:48 PM HERB DIGGER Plan of Treatment Health Maintenance Due Date [...] 11/16/2018, 11/12/2017, Additional history exists Insurance MEDICARE COUNTS INCLUDE [facility]S AT [facility] MEDICARE [employer] OOS BLUE TRADITIONAL OOS MEDICARE Care Teams Clinical Rehabilitation Liaison Relationship Specialty Start Date End Date Noe Barone MD [phone] (work) PCP - General 11/13/09
--- OUTSIDE RECORDS SUMMARY | 2024-10-27 14:27 | XMS_ITS ---
Author Organization [facility] Address [address] [facility] [place] [address] Care Team Providers Care Senior Research Manager Name Role Phone Noe Barone MD Primary Care Provider [phone] Malignant Melanoma Status:Enrolled (Active) Start date:10/14/2024 Enrollment date:10/14/2024 Enrollment reason:Conversion Current support & services provided:Clinical Management, Refill Management, Benefits and PA Management, Financial Assistance Linked medications:nilotinib HCl (Active) Overview Conversion Continued Care and Services Coordination
--- OUTSIDE RECORDS SUMMARY | 2024-10-27 14:27 | XMS_ITS | Clinical Summary ---
Author Organization [facility] Jessica Fernandez Address [address] [place] [address] Care Team Providers Care Cash Posting Representative Name Role Phone Noe Barone MD Primary Care Provider [phone] Allergies Active Allergy Reactions Criticality Noted Date [...] for Itching. 30 Tablet 1 4 Active potassium chloride (KLOR-CON M10) 10 mEq Extended Release tablet TAKE 1 TABLET TWICE A DAY 180 Tablet 3 5 Active methylPREDNISol one (MEDROL DOSPACK) 4 mg Tablets, Dose Pack Use as directed 21 Tablet 5 Active nilotinib HCl (TASIGNA) 200 mg capsuleIndicati ons:Malignant melanoma of right upper extremity (CMS/HCC) Take 2 Capsules (400 mg) by mouth 2 times daily. 112 Capsule 4 10/03/2024 2:28 PM CDT 5 Active nilotinib tartrate 200 mg Capsule Take 400 mg by mouth 2 times daily. 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 [address] [place] [phone] Beverley Soto, PHARMACIST Specialty Pharmacy Clinical Assessment 09/30/2024 Specialty [address] [facility] [address] [place] [phone] Beverley Soto, PHARMACIST Specialty Pharmacy Refill Coordination 09/29/2024 Specialty Pharm[address] [facility] [address] [place] [phone] Beverley Soto, PHARMACIST Specialty Pharmacy Prior Auth Coordination 09/28/2024 Telephone [facility] Oncology [facility] [address] [place] [address] Brian Herr MD Medication Review (Nilotinib sent to [facility] and they are having trouble with her auth . Will send to [facility] pharmacy.) 09/20/2024 Orders Only [facility] Oncology [facility] [address] [place] [address] Brian Herr MD 09/19/2024 2:15 PM CDT Office Visit [facility] Oncology and Hematology [facility] [address] [place] [address] Brian Herr MD Malignant melanoma of right upper extremity (CMS/HCC) (Primary Dx) 09/13/2024 External Device Data STL ABSTRACTION Provider, Abstract 08/24/2024 External Device Data STL ABSTRACTION Provider, Abstract 08/23/2024 External Device Data STL ABSTRACTION Provider, Abstract from Last 3 Months Family History Relation Name Status Comments Father Mother Sister 1 Alive Sister 2 Social History Tobacco Use Types Packs/Day Years Used Date Smoking Tobacco: Never Smokeless Tobacco: Never Tobacco Cessation:Counseling Given: Not Answered Comments Unknown Sex and Gender Information Value Date Recorded Sex Assigned at Female 11/19/2023 5:40 PM CDT 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 Gender Identity Female 11/19/2023 5:40 PM CDT Sexual Orientation Not on file Last Filed Vital Signs Vital Sign Reading Time Taken Comments Blood Pressure 123/61 09/19/2024 2:04 PM CDT Pulse 64 09/19/2024 2:04 PM CDT Temperature 36.2 C (97.2 F) 09/19/2024 2:04 PM CDT Respiratory Rate 15 06/10/2024 10:48 AM CDT Oxygen Saturation 96% 09/19/2024 2:04 PM CDT Inhaled Oxygen Concentration - - Weight 77.6 kg (171 lb) 09/19/2024 2:04 PM CDT Height 157.5 cm (5' 2) 09/19/2024 2:04 PM CDT Body Mass Index 31.28 09/19/2024 2:04 PM CDT Plan of Treatment Upcoming Encounters Date Type Department Care Team (Late st Contact Info) Description 11/02/2024 11:00 AM CDT Office Visit [facility] Oncology and Hematology - [place] [address] [place] [address] [facility] [address] [place] [address] Brian Herr MD [address] [facility] [address] [place] [address] Health Maintenance Due Date Last Done Comments DTAP/TDAP/TD VACCINES (1 - Tdap) 1964 Traditional Medicare (ACO) A nnual Wellness Visit 1964 PNEUMOCOCCAL VACCINE 50+ YEA RS (1 of 1 - PCV) 1996 ZOSTER VACCINE (1 of 2) 1996 RSV VACCINE (60+ or ) (1 - 1-dose 75+ series) 2021 INFLUENZA VACCINE (#1) 2024 , 10/27/2019, 11/16/2018, Additional history exists OSTEOPOROSIS SCREENING 04/09/2026 04/09/2021 Procedures Procedure Name Priority Date/Time Associated Diagnosis Comments COMPREHENSIVE METABOLIC PANEL Routine 09/19/2024 12:46 PM CDT BASIC METABOLIC PANEL Routine 09/19/2024 12:36 PM CDT CBC WITH AUTODIFFERENTIAL Routine 2024 12:35 PM CDT from Last 3 Months Results * COMPREHENSIVE METABOLIC PANEL (09/19/2024 12:46 PM CDT) Blood us Brian Herr MD CHEMISTRY ORDERABLES Final Resu lt * BASIC METABOLIC PANEL (09/19/2024 12:36 PM CDT) Blood us Brian Herr MD CHEMISTRY ORDERABLES Final Resu lt * CBC WITH AUTODIFFERENTIAL (09/19/2024 12:35 PM CDT) Blood us Brian Herr MD HEMATOLOGY ORDERABLES Final Res ult from Last 3 Months Insurance MEDICARE PART A AND B [employer] BLUE ACCESS/TRUE BLUE PPO MEDICARE PART A AND B BCBS SUPP RX [employer] SCRIP[employer] Medicare Part D Care Teams Cash Posting Representative Relationship Specialty Start Date End Date Noe Barone MD [address] [place] [address] PCP - General Family Practice 04/03/22
--- OUTSIDE RECORDS SUMMARY | 2024-10-27 14:27 | XMS_ITS | Encounter Summary ---
Author Organization [facility] Arellano [facility] Address [address] [place] [address] Care Team Providers Care Manager Marketing Name Role Phone Noe Barone MD Primary Care Provider [phone] Reason for Visit * Reason Onset Date Comments UTI Concerns 10/27/2024 Medication Review 10/27/2024 Encounter Details Date Type Department Care Team (Late st Contact Info) Description 10/27/2024 Telephone [facility] and Hematology - [place] [address] [place] [address] [facility] [address] [place] [address] Brian Herr MD [address] [facility] [address] [place] [address] UTI Concerns; Medication Review Social History Tobacco Use Types Packs/Day Years Used Date Smoking Tobacco: Never Smokeless Tobacco: Never Comments Unknown Sex and Gender Information Value Date Recorded Sex Assigned at Female 11/19/2023 5:40 PM CDT 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 She verbalized understanding. She is going to come up today toget the UA done. Will review when we get the results back. * Telephone Encounter - Jill Luo - 10/27/2024 1:11 PM CDT ----- Message from Dr. Brian Herr sent at 10/27/2024 1:02 PM CDT ----- Regarding: RE: Medication Symptoms Hold on the medicine and order the UA for UTI. ----- Message ----- From: Jill Luo Sent: 10/27/2024 9:05 AM CDT To: Brian Herr MD Subject: Medication Symptoms Patient started Nilotinib on 10/05/24. (At this time she was seen for poison oak and started on prednisone and benadryl.) About 1 week after starting medication patient has been having really bad symptoms. She has hives on her face and neck, she has lost 10 pounds, she says she is very weak and sleeping a lot. She also mentioned that she has yellow/organish urine. She is wanting to know if she shou ld still continue the medication or if she should stop taking it? Please advise. documented in this encounter Plan of Treatment Upcoming Encounters Date Type Department Care Team (Late st Contact Info) Description 11/02/2024 11:00 AM CDT Office Visit [facility] and Hematology - [place] [address] [place] [address] [address] [place] [address] Brian Herr MD [address] [facility] [address] [place] [address] Scheduled Orders Name Type Priority Associated Diagnoses Orde r Schedule URINALYSIS WITH REFLEX MICROSCOPIC Lab Routine Dark yellow-colored urine Expected: 10/27/2024, Expires: 10/27/2025 URINE CULTURE Microbiology Routine Dark yellow-colored urine Expected: 10/27/2024, Expires: 10/27/2025 documented as of this encounter Visit Diagnoses Diagnosis Dark yellow-colored urine- Primary documented in this encounter Care Teams Manager Marketing Relationship Specialty Start Date End Date Noe Barone MD [address] [place] [address] PCP - General Family Practice 04/03/22 documented as of this encounter
--- OUTSIDE RECORDS SUMMARY | 2024-10-27 14:27 | XMS_ITS | Clinical Summary ---
Author Organization [facility] Address [address] [place] [id number] Care Team Providers Care Rn Military Name Role Phone Unavailable Primary Care Provider [...] series) 2021 COVID-19 Vaccine (2023-2 5 season) 2024 Meningococcal B Vaccine Aged Out No l onger eligible based on patient's age to complete this topic Meningococcal Vaccine Aged Out No china alfredo eligible based on patient's age to complete this topic RSV Immunizations Under 20 Months Aged Out No longer eligible based on patient's age to complete this topic
--- OUTSIDE RECORDS SUMMARY | 2024-10-27 14:27 | XMS_ITS | Clinical Summary ---
Author Organization [facility] [place] Address [address] [facility] [place] [address] Care Team Providers Care External Relations Manager Name Role Phone Noe Barone MD Primary Care Provider [phone] Source Comments [facility] and Associated Physician Practices is amultiple site organization consisting of ambulatory clinics and hospital sitesin [place], [place], [place] and [place]. This disclosure is being madepursuant to the Care Everywhere program and may not contain all information available regarding this patient. 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 Not on file Not [...] yrs (1 - 1-dose 75+ series) 2021 DEPRESSION SCREENING 02/10/2024 COVID-19 VACCINE (1 - 2023-2 5 season) 2024 INFLUENZA VACCINE (#1) 2024 HEPATITIS B VACCINE [...] age to complete this topic Insurance MEDICARE [facility] SELF PAY NO INSURANCE Member Subscriber Plan / Payer (Ef fective for All Dates) Name:Amparo Alvarez Member ID:Not on file Relation to Subscriber:Not on file Name:CHUCK ALVAREZCONRADO Espino Subscriber ID:Not on file (Home) Address: [address] [place] [id number] Payer ID:Not on file Group ID:Not on file Type:Self Pay Address: [place], [place] MEDICARE MEDICARE [facility] Care Teams External Relations Manager Relationship Specialty Start Date End Date Noe Barone MD [address] [place] [address] PCP - General 03/13/21
--- OUTSIDE RECORDS SUMMARY | 2024-10-27 14:27 | XMS_ITS | Encounter Summary ---
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 Not on file Not on rose e documented as of this encounter Plan of Treatment Not on file documented as of this encounter Procedures Procedure Name Priority Date/Time Associated Diagnosis Comments FLOW CYTOMETRY TISSUE PANEL Routine 02/26/2023 10:50 AM WHEELCHAIR VAN OPERATOR FIRST RESPONDER Malignant melanoma of skin, unspecified (CMS-HCC) documented in this encounter Results * FLOW CYTOMETRY TISSUE PANEL (02/26/2023 10:50 AM WHEELCHAIR VAN OPERATOR FIRST RESPONDER) Case Report Flow Cytometry Case: [id number] Authorizing Provider: Zeus Carlson MD Collected: 02/26/2023 10:50 AM Ordering Location: [facility] Pathology Lab Received: 02/26/2023 02:12 PM Pathologist: Antoinette Diaz MD Specimen: Axillary Lymph Node, RIGHT 02/27/2023 9:10 AM [facility] Final Diagnosis Axillary lymph [...] classification of the tumor. 02/27/2023 9:10 AM [facility] at [address] [facility] Flow Cytometry Interpretation Insufficient hematolymphoid cells for evaluation. A cytospin prepared from the flow cytometry specimen has been reviewed for quality head purposes. 02/27/2023 9:10 AM [facility] Flow Cytometry Results Too few hematopoietic cells for flow cytometric analysis. 02/27/2023 9:10 AM [facility] Reason for test Malignant melanoma of skin, unspecified ([facility]-HCC) 02/27/2023 9:10 AM [facility] Client Specimen ID # [id number] 02/27/2023 9:10 AM [facility] Pathologist Location at [facility] 02/27/2023 9:10 AM [facility] Disclaimer Test performed at [facility], [address] [place] [address], [id number]. *The established laboratory minimum viability is 70%. [...] high complexity clinical testing. 02/27/2023 9:10 AM WHEELCHAIR VAN OPERATOR FIRST RESPONDER [facility] Embedded Images 9:10 AM WHEELCHAIR VAN OPERATOR FIRST RESPONDER [facility] Pathology/Cytolo gy AXILLARY LYMPH NODE STRUCTURE / Unknown 02/26/2023 10:50 AM WHEELCHAIR VAN OPERATOR FIRST RESPONDER 02/26/2023 2:12 PM WHEELCHAIR VAN OPERATOR FIRST RESPONDER Sujit Carlson MD LAB - PATHOLOGY/CYT OLOGY ORDERABLES Final Result [facility] [address] [phone] documented in this encounter Visit Diagnoses Diagnosis Malignant melanoma of skin, unspecified (HCC) documented in this encounter Care Teams Pharmaceutical Worker Relationship Specialty Start Date End Date Noe Barone MD [address] [place] [address] PCP - General 03/13/21 documented as of this encounter
[2024-10-27 15:37] LABS: Add Urine Microscopic? YES; Appearance Urine Turbid (Clear); Glucose Urine UA Negative (Negative); Leukocyte Esterase Ur Trace LEU/UL (Negative); Need Manual Microscopic Reviewed; Nitrate Urine Negative (Negative); Non Pathogenic Casts >20; Specific Grav Ur 1.017 (1.001-1.035)
== END 2024-10-27 14:22 | disposition home or self-care (01) ==
PROVIDERS: PCP Family Medicine; Visit Provider Internal Medicine Hematology & Oncology
DX: R93.89 Abnormal findings on diagnostic imaging of other specified body structures (principal)
CPT/HCPCS: 81001; 87086

== ENCOUNTER 2025-02-08 10:55 | Outpatient (CLI) | payer MEDICARE, BC, SELFPAY ==
--- NOTE | ~2025-02-08 | CT_ITS ---
EXAMINATION: CT chest abdomen pelvis w con DATE: 02/08/2025 11:20 INDICATION: Malignant melanoma of right upper extremity. TECHNIQUE: Computed tomography (CT) of the chest, abdomen, and pelvis was performed with 100 mL Omnipaque 350 intravenous contrast. Automated exposure control and iterative reconstruction technique were employed. The dose-length product was 558.46 mGy-cm. COMPARISON: CT 09/12/2024 FINDINGS: CHEST CT: There is mild scarring at the lung apices. There is no pleural effusion. There is left atrial enlargement of the heart. There are coronary artery calcifications. There are changes of coronary bypass grafting. No pericardial effusion. There is a small sliding hiatal hernia. There is a 2.3 x 2.1 cm right axillary node that previously measured 2.8 x 2.2 cm. There is right subpectoral lymphadenopathy with the largest node measuring 3.9 x 2.4 cm, stable from 09/12/2024. There is moderate thoracic spondylosis. There is a lytic lesion of left T4 transverse process. ABDOMEN/PELVIS CT: The liver is normal. There are changes of cholecystectomy. There is a 4.4 cm mass in the spleen that previously measured 4.3 cm. The pancreas and adrenal glands are normal. There are cysts in the kidneys measuring up to 6 mm in the left. There are no dilated loops of bowel. The appendix is not visualized. There are no pathologically enlarged lymph nodes. There is no free intraperitoneal fluid. There are changes of anterior posterior fusion procedure at L4-L5. There is severe lumbar spondylosis. IMPRESSION: 1. Right axillary and subpectoral lymphadenopathy, splenic mass, and left T4 transverse process lytic lesion, consistent with overall stable metastatic disease. Reviewed, dictated and finalized at location E. [facility] IMPRESSION: 1. Right axillary and subpectoral lymphadenopathy, splenic mass, and left T4 tr ansverse process lytic lesion, consistent with overall stable metastatic diseas e.
[2025-02-08 11:14] LABS: Estimated Glomerular Filt Rate > 60
--- OUTSIDE RECORDS SUMMARY | 2025-02-08 11:15 | XMS_ITS | Clinical Summary ---
Author Organization [facility] Jessica Fernandez Address [address] [place] [address] Care Team Providers Care System Dispatcher Name Role Phone Noe Barone MD Primary Care Provider [phone] Allergies Active Allergy Reactions Criticality Noted Date [...] for Itching. 30 Tablet 1 4 Active methylPREDNISol one (MEDROL DOSPACK) 4 mg Tablets, Dose Pack Use as directed 21 Tablet 5 Active ripretinib (Qinlock) 50 mg Tablet Take 3 tablets (150 mg) by mouth daily. 90 Tablet 3 5 Active famotidine (PEPCID) 20 mg tablet Take 20 mg by mouth 2 times daily. Active potassium CHLORIDE 10 mEq Extended Release tablet Take 1 Tablet (10 mEq) by mouth 3 times daily. 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 [address] [place] [address] Brian Herr MD 12/15/2024 11:15 AM HEALTH ASSOCIATE Office Visit [facility] Oncology and [facility] [address] [place] [address] Brian Herr MD Malignant melanoma of right upper extremity (CMS/HCC) (Primary Dx) 11/15/2024 External Device Data STL ABSTRACTION Provider, Abstract 11/09/2024 Specialty Pharmacy [facility] [address] [place] [phone] Beverley Soto, PHARMACIST from Last 3 Months Family History Relation Name Status Comments Father Mother Sister 1 Alive Sister 2 Social History Tobacco Use Types Packs/Day Years Used Date Smoking Tobacco: Never Smokeless Tobacco: Never Tobacco Cessation:Counseling Given: Not Answered Comments Unknown Sex and Gender Information Value Date Recorded Sex Assigned at Female 11/19/2023 5:40 PM CDT Legal Sex Female 2:48 PM HEALTH ASSOCIATE Gender Identity Female 11/19/2023 5:40 PM CDT Sexual Orientation Not on file Last Filed Vital Signs Vital Sign Reading Time Taken Comments Blood Pressure 138/75 12/15/2024 11:46 AM HEALTH ASSOCIATE Pulse 64 12/15/2024 11:46 AM HEALTH ASSOCIATE Temperature 36.4 C (97.5 F) 12/15/2024 11:46 AM HEALTH ASSOCIATE Respiratory Rate 16 12/15/2024 11:4 6 AM HEALTH ASSOCIATE Oxygen Saturation 96% 12/15/2024 11: 46 AM HEALTH ASSOCIATE Inhaled Oxygen Concentration - - Weight 73.4 kg (161 lb 12.8 oz) 025 11:46 AM HEALTH ASSOCIATE Height 157.5 cm (5' 2) 09/19/2024 2:04 PM CDT Body Mass Index 29.59 09/19/2024 2:04 PM CDT Plan of Treatment Upcoming Encounters Date Type Department Care Team (Late st Contact Info) Description 02/15/2025 11:00 AM HEALTH ASSOCIATE Office Visit [facility] Oncology and Hematology - [place] [address] [facility] [address] [place] [address] Brian Herr MD [address] [facility] [address] [place] [address] Health Maintenance Due Date Last Done Comments DTAP/TDAP/TD VACCINES (1 - Tdap) 1964 PNEUMOCOCCAL VACCINE 50+ YEA RS (1 of 1 - PCV) 1996 ZOSTER VACCINE (1 of 2) 1996 RSV VACCINE (60+ or ) (1 - 1-dose 75+ series) 2021 INFLUENZA VACCINE (#1) 2024 3, 10/27/2019, 11/16/2018, Additional history exists OSTEOPOROSIS SCREENING 04/09/2026 04/09/2021 Procedures Procedure Name Priority Date/Time Associated Diagnosis Comments CBC WITH AUTODIFFERENTIAL Routine 2024 1:10 PM HEALTH ASSOCIATE from Last 3 Months Results * CBC WITH AUTODIFFERENTIAL (12/15/2024 1:10 PM HEALTH ASSOCIATE) Blood us Brian Herr MD HEMATOLOGY ORDERABLES Final Res ult from Last 3 Months Insurance MEDICARE PART A AND B [facility] BLUE ACCESS/TRUE BLUE PPO MEDICARE PART A AND B [facility] SUPP RX EXPRESS SCRIPTS Medicare Part D Care Teams System Dispatcher Relationship Specialty Start Date End Date Noe Barone MD [address] [place] [address] PCP - General Family Practice 04/03/22
--- OUTSIDE RECORDS SUMMARY | 2025-02-08 11:15 | XMS_ITS | Clinical Summary ---
Author Organization [facility] [address] Address [address] [place] [address] Care Team Providers Care Head Of It Name Role Phone Noe Barone MD Primary Care Provider [phone] Allergies Active Allergy Reactions Criticality Noted Date Comments Lisinopril Cough Low 09/17/2020 Scratchy cough Pollen Extracts Unknown Low Sulfa (Sulfonamide Antibiotics) Hives Medium Medications aspirin 81 mg tablet take 1 tablet by oral route every day 0 0 5 Active potassium chloride ER 10 mEq CR tablet Take 1 tablet/capsule (10 mEq total) by mouth 2 (two) times a day 4 Active imatinib (GLEEVEC) 400 mg tablet Take 1 tablet (400 mg total) by mouth daily 4 Active ferrous sulfate 325 mg (65 mg of elemental iron) tabletIndications :Iron Deficiency Anemia Take 1 tablet (325 mg total) by mouth daily with breakfast Active cyanocobalamin (Vitamin B-12) 100 mcg tabletIndications :Prevention of Vitamin B12 Deficiency Take 1 tablet (100 mcg total) by mouth daily Active losartan-hydroCHL OROthiazide (HYZAAR) 50-12.5 mg per tabletIndications :Essential hypertension TAKE 1 TABLET DAILY 90 tablet 1 5 Active amLODIPine (NORVASC) 5 mg tablet TAKE 1 TABLET DAILY DIRECTED 90 tablet 3 5 Active metoprolol tartrate (LOPRESSOR) 25 mg immediate release tablet TAKE 1 TABLET TWICE A DAY 180 tablet 3 5 Active atorvastatin (LIPITOR) 40 mg tablet TAKE 1 TABLET DAILY DIRECTED 90 tablet 3 5 Active Active Problems Problem Noted Date Diagnosed [...] essential hypertension Coronary artery disease invo lving [place] coronary artery of [place] heart without angina pectoris 02/28/2014 Overview (05/15/2016): Coronary arteriosclerosis in [place] artery Pure hypercholesterolemia 02/28/2014 Overview (05/15/2016): Pure [...] on file Legal Sex Female 10:03 AM CISCO CERTIFIED INTERNETWORK EXPERT Gender Identity Not on file Sexual Orientation Not on file Last Filed Vital Signs Vital Sign Reading Time Taken Comments Blood Pressure 130/62 03/18/2024 2:48 PM CISCO CERTIFIED INTERNETWORK EXPERT Pulse 65 03/18/2024 2:48 PM CISCO CERTIFIED INTERNETWORK EXPERT Temperature 36.3 C (97.3 F) 08/03/2023 9:21 AM CDT Respiratory Rate - - Oxygen Saturation 98% 03/18/2024 2:48 PM CISCO CERTIFIED INTERNETWORK EXPERT Inhaled Oxygen Concentration - - Weight 79.8 kg (176 lb) 03/18/2024 2:48 PM CISCO CERTIFIED INTERNETWORK EXPERT Height 157.5 cm (5' 2) 03/18/2024 2:48 PM CISCO CERTIFIED INTERNETWORK EXPERT Body Mass Index 32.19 03/18/2024 2:48 PM CISCO CERTIFIED INTERNETWORK EXPERT Plan of Treatment Health Maintenance Due Date [...] 11/16/2018, 11/12/2017, Additional history exists Insurance MEDICARE [facility] MEDICARE BLUE TRADITIONAL OOS BLUE TRADITIONAL OOS MEDICARE Care Teams Head Of It Relationship Specialty Start Date End Date Noe Barone MD PCP - General 11/13/09
--- OUTSIDE RECORDS SUMMARY | 2025-02-08 11:16 | XMS_ITS | Encounter Summary ---
Author Organization [facility] Address [address] [place] [address] Phone Care Team Providers Care Railroad Track Inspector Name Role Phone Noe Barone MD Primary [...] on file Legal Sex Female 10:03 AM NURSING ASSOC Gender Identity Not on file Sexual Orientation [...] on filedocumented in this encounter Care Teams Railroad Track Inspector Relationship Specialty Start Date End Date Noe Barone MD PCP - General 11/13/09 documented as of this encounter
--- OUTSIDE RECORDS SUMMARY | 2025-02-08 11:16 | XMS_ITS | Clinical Summary ---
Author Organization [facility] Address [address] [place] [phone] Phone Care Team Providers Care Transportation Assistant Name Role Phone Unavailable Primary Care Provider [...] on file Legal Sex Female 8:50 AM [facility] Gender Identity Not on file [...]
--- OUTSIDE RECORDS SUMMARY | 2025-02-08 11:16 | XMS_ITS | Clinical Summary ---
Author Organization [facility] Address [address] [place] [id number] Care Team Providers Care Flash Welder Name Role Phone Unavailable Primary Care Provider [...] - 1-dose 75+ series) 2021 COVID-19 Vaccine (2024-2 6 season) 2024 Influenza Adult (#1) 2024 Hepatitis A Vaccines Aged Out No long er eligible based on patient's age to complete this topic Meningococcal B Vaccine Aged Out No l onger eligible based on patient's age to complete this topic Meningococcal Vaccine Aged Out No china alfredo eligible based on patient's age to complete this topic RSV Immunizations Under 20 Months Aged Out No longer eligible based on patient's age to complete this topic
== END 2025-02-08 10:56 | disposition home or self-care (01) ==
PROVIDERS: PCP Family Medicine; Visit Provider Internal Medicine Hematology & Oncology
DX: C43.61 Malignant melanoma of right upper limb, including shoulder (principal)
CPT/HCPCS: 71260; 74177; Q9967